=== PATIENT | female | born 1985 | race Caucasian/White ===

== ENCOUNTER 2019-06-14 12:14 | Emergency (ER) | payer BC, SELFPAY ==
[2019-06-14 12:18] VITALS: BP 155/88; PULSE 113; RESP 16; TEMP 37; O2SAT 96; BMI 41.9
--- NOTE | 2019-06-14 12:32 | W.ED.WOUNDLC ---
HPI - Wound/Laceration General: Chief Complaint: Wound/Laceration Stated Complaint: left hand lac Time Seen by Provider: 06/14/19 12:29 Source: patient Mode of arrival: ambulatory Limitations: no limitations History of Present Illness: HPI narrative: Patient was cutting up an avocado when it slipped and she stabbed her left palm of her hand with a knife. Patient has good range of motion of the extremity. Patient does have a puncture wound to the palm of the left hand. Patient's tetanus shot is up-to-date. Patient appears well. Patient appears in mild to moderate pain. Review of Systems General: Reports: 10 or more systems reviewed and unremarkable except in HPI and below Skin/Breast: Reports: other (injury left hand palm) PFSH ED PFSH: Statuses (acute, chronic, etc) shown below reflect problem list status as previously entered and may not be historically accurate Social History Smoking and tobacco status: never smoked Female Reproductive History: Date of last menstrual period: 05/30/19 Physical Exam Const: COMMON NORMALS: no apparent distress and oriented x3 GENERAL APPEARANCE: cooperative HENMT: COMMON NORMALS: normocephalic, external ears normal, EAC's normal, TM's normal bilaterally and external nose normal HEAD & SCALP: normal to inspection and normocephalic FACE & SINUS: normal facial exam NOSE: external nose normal GENERAL EAR: hearing not grossly impaired EXTERNAL EAR: Yes external ears normal EXTERNAL AUDITORY CANAL: EAC's normal TYMPANIC MEMBRANE: TM's normal bilaterally MOUTH: oral and palatal mucosa normal THROAT: posterior oropharynx normal Eye: COMMON NORMALS: PERRL and EOMs intact bilaterally PUPIL: Yes PERRL Neck/C-Spine: COMMON NORMALS: full ROM and no lymphadenopathy Lymph: LYMPHATIC: no lymphedema noted Chest: COMMONS NORMALS: inspection of chest normal and palpation of chest normal Resp: COMMON NORMALS: normal respiratory effort and clear to auscultation bilaterally AUSCULTATION: clear to auscultation bilaterally Cardio: COMMON NORMALS: regular rate and regular rhythm RATE: regular rate RHYTHM: regular rhythm GI: COMMON NORMALS: normal to inspection, nondistended, normoactive bowel sounds and non-tender : COMMON NORMALS: Yes no CVA tenderness BLADDER/KIDNEY EXAM: Yes no CVA tenderness Back/Pelvis: COMMON NORMALS: no CVA tenderness and thoracic and lumbar spine normal to inspection Extremity: NARRATIVE EXTREMITY EXAM: On exam patient's left palm has a half a centimeter wound with surrounding area of ecchymosis. Area is tender to touch. Range of motion is normal. Distal cap refill and sensation is intact. GENERAL: No edema Neuro: COMMON NORMALS: oriented x3, moves all extremities and no focal motor deficits Psych: COMMON NORMALS: mental status grossly normal and cooperative Skin: COMMON NORMALS: no rashes or lesions noted GENERAL SKIN EXAM: no rashes or lesions noted Course Vital Signs: Vital signs: Vital Signs Temperature 98.6 F 06/14/19 12:18 Pulse Rate 113 H 06/14/19 12:18 Respiratory Rate 16 06/14/19 12:18 Blood Pressure 155/88 06/14/19 12:18 Pulse Oximetry 96 06/14/19 12:18 MDM - Wound/Laceration MDM Narrative: Medical decision making narrative: Patient comes in today with injury to the left hand. On exam we noted a superficial laceration/puncture wound to the palmar aspect of the left hand. Patient has normal range of motion. And normal neurovascular checks. Differential diagnosis includes tendon injury, foreign body, laceration, wound infection. Exam noted no foreign body or tendon injury. Reviewed exam with patient with recommendations for treatment for appropriate wound care. No sutures were necessary. Patient will be given antibiotic for prophylaxis and hydrocodone as needed for pain. Encourage Tylenol and ibuprofen otherwise for pain. Discharge Plan Discharge Patient Disposition: Home, Self-Care Clinical Impression: Laceration Condition: Stable Prescriptions: New hydrocodone-acetaminophen 5-325 mg tablet 1 tab PO Q6H PRN (Reason: pain) Qty: 5 RF: 0 cephalexin 500 mg capsule 500 mg PO BID 7 Days Qty: 14 RF: 0 Discharge Orders: Discharge Order (Routine); Ordered 06/14/19 Ordered By: Edgar Huang Referrals: Mark Guy DO [Primary Care Provider] - Discharge Diet: Usual diet Discharge Activity: Increase activity as tolerated Patient Instructions: Puncture Wound (ED) Activity Restrictions/Additional Instructions: Keep wound clean and dry Antibiotics as directed Activity as tolerated Drink plenty of water with medications Follow-up with primary care in one week Return to ER for severe pain, or high fever 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
[2019-06-14] MEDS: HYDROcodone-acetaminophen 5-325 mg Tablet 1 TAB PO (12:44)
--- NOTE | 2019-06-14 12:52 | PC.NURSE ---
pressure dressing with two 2x2 gauze pads and coban
== END 2019-06-14 12:45 | disposition home or self-care (01) ==
LOC: ER 13:04
PROVIDERS: Emergency Provider Nurse Practitioner Family; Family Provider Electrodiagnostic Medicine; PCP Electrodiagnostic Medicine
DX: S61.412A Laceration without foreign body of left hand, initial encounter (principal); W26.0XXA Contact with knife, initial encounter
CPT/HCPCS: 99281; 99283

== ENCOUNTER 2019-08-18 13:27 | Emergency (ER) | payer BC, SELFPAY ==
[2019-08-18 13:46] VITALS: BP 133/85; PULSE 109; RESP 18; TEMP 37.2; O2SAT 97; BMI 42.7
--- NOTE | 2019-08-18 13:50 | W.ED.HA ---
HPI - Headache General: Chief Complaint: Headache Stated Complaint: headache/diabetic Time Seen by Provider: 08/18/19 13:49 History of Present Illness: HPI Narrative: Patient is a 34-year-old female who comes to the ED with a migraine and elevated blood sugars. Patient is of migraines, type II diabetic and she uses insulin to help control her blood sugars. Patient says symptoms started yesterday when she was having elevated blood sugars of over 500. She started feeling nauseous, a migraine and blurry vision. She describes the migraine as retro-orbital with photophobia and nausea. She rates the migraine an 8 out of 10. She has been checking her blood sugars more frequently over the past 24 hours ago and states she has had trouble getting blood sugars down. She normally gets this blurry vision symptom when she is having elevated blood sugars. she currently takes 40 units of Levemir in the morning and at night. She also takes NovoLog on a sliding scale basis. Today she took her 40 units of Levemir and 15 units of NovoLog before coming to the ED. Patient says her blood sugar was over 500 right before she took the 15 units of the NovoLog. Denies any chest pain, shortness of breath, fever, vomiting, diarrhea, abdominal pain, hematuria, dysuria. Associated symptoms: Reports photophobia; Deny chest pain, fever(s), nausea, rash or vomiting Review of Systems Narrative: Elevated and uncontrollable blood sugars. Const: Denies: fever, chills or fatigue Eyes: Denies: change in vision or eye discomfort ENMT: Denies: throat pain, painful swallowing, nasal discharge or nasal congestion Card: Denies: chest pain, palpitations, edema, swelling of feet/ankles, shortness of breath on exertion or shortness of breath when lying down Resp: Denies: shortness of breath, productive cough or non-productive cough GI: Denies: abdominal pain, nausea, vomiting, diarrhea, constipation or blood in stool : Denies: flank pain, painful urination or blood in urine Musc: Denies: neck pain, back pain or extremity swelling Skin/Breast: Denies: rash or new lesion Neuro: Reports: headache; Denies: numbness in extremities or weakness in extremities PFS ED PFSH: Social History Smoking and tobacco status: never smoked Female Reproductive History: Date of last menstrual period: 05/30/19 Physical Exam Const: COMMON NORMALS: oriented x3 and alert HENMT: COMMON NORMALS: normocephalic HEAD & SCALP: normocephalic MOUTH: oral and palatal mucosa normal THROAT: posterior oropharynx normal and uvula midline Eye: COMMON NORMALS: PERRL, EOMs intact bilaterally and normal visual hernandez by confrontation PUPIL: Yes PERRL DIRECT OPHTHALMOSCOPY: Yes photophobia Neck/C-Spine: COMMON NORMALS: supple GENERAL: Yes normal visual inspection Resp: COMMON NORMALS: normal respiratory effort, no retractions, no use of accessory muscles and clear to auscultation bilaterally AUSCULTATION: clear to auscultation bilaterally Cardio: COMMON NORMALS: regular rate, regular rhythm, S1 normal heart sound, S2 normal heart sound, no gallops, no clicks, no murmurs and peripheral pulses 2+ throughout RATE: regular rate RHYTHM: regular rhythm HEART SOUNDS: S1 normal and S2 normal PERIPHERAL PULSES: pulses 2+ throughout GI: COMMON NORMALS: normal to inspection, nondistended, normoactive bowel sounds, soft to palpation, non-tender and no masses PALPATION: Yes soft : COMMON NORMALS: Yes no CVA tenderness BLADDER/KIDNEY EXAM: Yes no CVA tenderness Back/Pelvis: COMMON NORMALS: no CVA tenderness Extremity: COMMON NORMALS: normal to inspection and normal capillary refill Neuro: COMMON NORMALS: oriented x3, CN's II-XII intact bilaterally, moves all extremities, no focal motor deficits and no sensory deficits noted SENSORIUM/ORIENTATION: Yes alert SENSORY EXAM: Yes extremities (intact) MOTOR EXAM: strength 5/5 throughout Skin: COMMON NORMALS: no rashes or lesions noted GENERAL SKIN EXAM: no rashes or lesions noted and dry skin Course Vital Signs: Vital signs: Vital Signs Temperature 99.0 F 08/18/19 13:46 Pulse Rate 97 08/18/19 17:00 Respiratory Rate 16 08/18/19 17:00 Blood Pressure 103/60 08/18/19 17:00 Pulse Oximetry 95 08/18/19 17:00 MDM - Headache MDM Narrative: Medical decision making narrative: Patient is a 34-year-old female who comes to the ED with a migraine and elevated blood sugars. Patient has a past medical history of migraines and type 2 diabetes. Glucose Accu-Check while patient was first in the ED- 424. Physical exam including full neuro exam was normal showing no neurological deficits. Patient had photophobia. While here in the ED patient was given IV fluids, Toradol, Reglan, IV insulin 10 units. Patient's migraine improved greatly and her blood sugar decreased to 286. Patient was discharged and told to have a follow-up appointment with PCP within the next 3 days to discuss changes in diabetes medication regiment. Patient told to continue checking blood sugars at home. Patient understood and agreed with plan. Lab Data: Attestation: I reviewed the patient's lab results. Labs: Lab Results 08/18/19 08/18/19 08/18/19 Range/Units 13:57 14:35 14:45 WBC (4.0-10.0) 10^3/ uL RBC (4.1-5.3) 10^6/u L Hgb (11.5-15.3) g/dL Hct (37.0-47.0) % MCV (81-99) fL MCH (28.0-34.0) pg MCHC (30.0-36.0) g/dL RDW (12.1-15.1) % Plt Count (130-400) 10^3/c mm MPV (7.4-10.4) fL Neut % (Auto) % Lymph % (Auto) % Power % (Auto) % Eos % (Auto) % Baso % (Auto) % Neut # (Auto) (1.8-7.7) 10^3/u L Lymph # (Auto) (0.8-4.8) 10^3/u L Power # (Auto) (0.2-0.9) 10^3/u L Eos # (Auto) (0.0-0.8) 10^3/u L Baso # (Auto) (0.0-0.1) 10^3/u L Nucleated RBC % (a uto) % Nucleated RBCs # /100WBC Specimen Type Arterial Sample Site Radial, left ABG pH 7.41 (7.35-7.45) ABG pCO2 38.2 (35-45) mmHg ABG pO2 75.5 L (80.0-100.0) mmH g ABG HCO3 24.1 (22-26) mmol/L ABG O2 Saturation 96.2 ABG Base Excess -0.3 (-2.0-2.0) mmol/ L Tr Test Pos A-a O2 Gradient 27.0 H (5-10) mmHg Hematocrit 43.2 (37-47) % Hgb O2 Saturation 94.8 L (95-100) % Carboxyhemoglobin 0.6 (0.4-20.1) %THgb Methemoglobin 0.9 (0.4-1.5) % Total Hemoglobin 14.1 (12-16) g/dL Sodium 137.0 (131-143) mmol/L Potassium 4.3 (3.5-5.0) mmol/L Glucose 406.0 H (70-115) mg/dL Ionized Calcium 1.2 (1.1-1.4) mmol/L O2 Delivery Device Room air Solvent Plant Operator ID broma Chloride (98-107) mmol/L Carbon Dioxide (22-29) mmol/L Anion Gap (5-19) BUN (6-20) mg/dL Creatinine (0.5-0.9) mg/dL GFR Calculation (90-130) mL/min POC Glucose 424 (70-110) mg/dL Calculated Osmolal ity (285-295) mOsm/k g Calcium (8.5-10.5) mg/dL Total Bilirubin (0.15-1.2) mg/dL AST (0-32) U/L ALT (0-33) U/L Alkaline Phosphata se (35-105) IU/L Total Protein (6.6-8.7) g/dL Albumin (3.5-5.2) g/dL Globulin (1.3-4.6) g/dL HCG, Qual (Negative) Urine Color Yellow (Yellow) Urine Appearance Clear (CLEAR) Urine pH 5 (5-7) Ur Specific Gravit y 1.010 (1.005-1.030) Urine Protein Neg (Negative) Urine Glucose (UA) 4+ H (Normal) Urine Ketones Negative (Negative) Urine Blood Neg (Negative) Urine Nitrate Negative (Negative) Urine Bilirubin Neg (NEGATIVE) Urine Urobilinogen Norm (Negative) mg/dL Ur Leukocyte Yasmin ase Negative (Negative) Urine RBC None (0-2) /hpf Urine WBC None (0-5) /hpf Ur Squamous Epith Cells 0-4 H (0-5) Urine Bacteria Trace (NONE) 08/18/19 08/18/19 08/18/19 Range/Units 15:00 15:00 15:00 WBC 6.9 (4.0-10.0) 10^3/ uL RBC 4.55 (4.1-5.3) 10^6/u L Hgb 13.4 (11.5-15.3) g/dL Hct 40.4 (37.0-47.0) % MCV 88.8 (81-99) fL MCH 29.5 (28.0-34.0) pg MCHC 33.2 (30.0-36.0) g/dL RDW 12.3 (12.1-15.1) % Plt Count 259 (130-400) 10^3/c mm MPV 9.9 (7.4-10.4) fL Neut % (Auto) 58.9 % Lymph % (Auto) 32.4 % Power % (Auto) 5.4 % Eos % (Auto) 2.2 % Baso % (Auto) 0.7 % Neut # (Auto) 4.1 (1.8-7.7) 10^3/u L Lymph # (Auto) 2.2 (0.8-4.8) 10^3/u L Power # (Auto) 0.4 (0.2-0.9) 10^3/u L Eos # (Auto) 0.2 (0.0-0.8) 10^3/u L Baso # (Auto) 0.1 (0.0-0.1) 10^3/u L Nucleated RBC % (a uto) 0 % Nucleated RBCs # 0.0 /100WBC Specimen Type Sample Site ABG pH (7.35-7.45) ABG pCO2 (35-45) mmHg ABG pO2 (80.0-100.0) mmH g ABG HCO3 (22-26) mmol/L ABG O2 Saturation ABG Base Excess (-2.0-2.0) mmol/ L Tr Test A-a O2 Gradient (5-10) mmHg Hematocrit (37-47) % Hgb O2 Saturation (95-100) % Carboxyhemoglobin (0.4-20.1) %THgb Methemoglobin (0.4-1.5) % Total Hemoglobin (12-16) g/dL Sodium 131 L (131-143) mmol/L Potassium 4.2 (3.5-5.0) mmol/L Glucose 387 H (70-115) mg/dL Ionized Calcium (1.1-1.4) mmol/L O2 Delivery Device Solvent Plant Operator ID Chloride 95 L (98-107) mmol/L Carbon Dioxide 24 (22-29) mmol/L Anion Gap 16.2 (5-19) BUN 15 (6-20) mg/dL Creatinine 0.6 (0.5-0.9) mg/dL GFR Calculation 113.8 (90-130) mL/min POC Glucose (70-110) mg/dL Calculated Osmolal ity 284 L (285-295) mOsm/k g Calcium 9.5 (8.5-10.5) mg/dL Total Bilirubin 0.2 (0.15-1.2) mg/dL AST 14 (0-32) U/L ALT 20 (0-33) U/L Alkaline Phosphata se 48 (35-105) IU/L Total Protein 7.1 (6.6-8.7) g/dL Albumin 3.8 (3.5-5.2) g/dL Globulin 3.3 (1.3-4.6) g/dL HCG, Qual Negative (Negative) Urine Color (Yellow) Urine Appearance (CLEAR) Urine pH (5-7) Ur Specific Gravit y (1.005-1.030) Urine Protein (Negative) Urine Glucose (UA) (Normal) Urine Ketones (Negative) Urine Blood (Negative) Urine Nitrate (Negative) Urine Bilirubin (NEGATIVE) Urine Urobilinogen (Negative) mg/dL Ur Leukocyte Yasmin ase (Negative) Urine RBC (0-2) /hpf Urine WBC (0-5) /hpf Ur Squamous Epith Cells (0-5) Urine Bacteria (NONE) 08/18/19 Range/Units 15:48 WBC (4.0-10.0) 10^3/ uL RBC (4.1-5.3) 10^6/u L Hgb (11.5-15.3) g/dL Hct (37.0-47.0) % MCV (81-99) fL MCH (28.0-34.0) pg MCHC (30.0-36.0) g/dL RDW (12.1-15.1) % Plt Count (130-400) 10^3/c mm MPV (7.4-10.4) fL Neut % (Auto) % Lymph % (Auto) % Power % (Auto) % Eos % (Auto) % Baso % (Auto) % Neut # (Auto) (1.8-7.7) 10^3/u L Lymph # (Auto) (0.8-4.8) 10^3/u L Power # (Auto) (0.2-0.9) 10^3/u L Eos # (Auto) (0.0-0.8) 10^3/u L Baso # (Auto) (0.0-0.1) 10^3/u L Nucleated RBC % (a uto) % Nucleated RBCs # /100WBC Specimen Type Sample Site ABG pH (7.35-7.45) ABG pCO2 (35-45) mmHg ABG pO2 (80.0-100.0) mmH g ABG HCO3 (22-26) mmol/L ABG O2 Saturation ABG Base Excess (-2.0-2.0) mmol/ L Tr Test A-a O2 Gradient (5-10) mmHg Hematocrit (37-47) % Hgb O2 Saturation (95-100) % Carboxyhemoglobin (0.4-20.1) %THgb Methemoglobin (0.4-1.5) % Total Hemoglobin (12-16) g/dL Sodium (131-143) mmol/L Potassium (3.5-5.0) mmol/L Glucose (70-115) mg/dL Ionized Calcium (1.1-1.4) mmol/L O2 Delivery Device Solvent Plant Operator ID Chloride (98-107) mmol/L Carbon Dioxide (22-29) mmol/L Anion Gap (5-19) BUN (6-20) mg/dL Creatinine (0.5-0.9) mg/dL GFR Calculation (90-130) mL/min POC Glucose 286 (70-110) mg/dL Calculated Osmolal ity (285-295) mOsm/k g Calcium (8.5-10.5) mg/dL Total Bilirubin (0.15-1.2) mg/dL AST (0-32) U/L ALT (0-33) U/L Alkaline Phosphata se (35-105) IU/L Total Protein (6.6-8.7) g/dL Albumin (3.5-5.2) g/dL Globulin (1.3-4.6) g/dL HCG, Qual (Negative) Urine Color (Yellow) Urine Appearance (CLEAR) Urine pH (5-7) Ur Specific Gravit y (1.005-1.030) Urine Protein (Negative) Urine Glucose (UA) (Normal) Urine Ketones (Negative) Urine Blood (Negative) Urine Nitrate (Negative) Urine Bilirubin (NEGATIVE) Urine Urobilinogen (Negative) mg/dL Ur Leukocyte Yasmin ase (Negative) Urine RBC (0-2) /hpf Urine WBC (0-5) /hpf Ur Squamous Epith Cells (0-5) Urine Bacteria (NONE) Discharge Plan Discharge Patient Disposition: Home, Self-Care Clinical Impression: Migraine Qualifiers: Migraine type: without aura Status migrainosus presence: without status migrainosus Intractability: not intractable Qualified Code(s): G43.009 - Migraine without aura, not intractable, without status migrainosus Hyperglycemia due to type 2 diabetes mellitus 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 Qualified Code(s): E11.65 - Type 2 diabetes mellitus with hyperglycemia Condition: Stable Prescriptions: No Action hydrocodone-acetaminophen 5-325 mg tablet 1 tab PO Q6H PRN (Reason: pain) Qty: 5 RF: 0 metformin 500 mg Tablet 1,000 mg PO BID RF: 0 atorvastatin 20 mg tablet 20 mg PO BEDTIME RF: 0 Norvasc 5 mg Tablet 5 mg PO DAILY RF: 0 Novolog U-100 Insulin aspart 100 unit/mL solution See Rx Instructions .ROUTE .COMPLEX RF: 0 Levemir U-100 Insulin 100 unit/mL solution 40 unit SUBCUT BID RF: 0 fenofibric acid (choline) 135 mg capsule,delayed release(DR/EC) 135 mg PO DAILY RF: 0 Vascepa 1 gram capsule 1 g PO BID RF: 0 PreNata 29 mg iron- 1 mg Tablet,Chewable 1 tab PO DAILY RF: 0 Discharge Orders: Discharge Order (Routine); Ordered 08/18/19 Ordered By: Joes Spence Referrals: Mark Guy DO [Primary Care Provider] - Discharge Diet: Diabetic Discharge Activity: Resume usual activity Patient Instructions: Migraine Headache (ED), Diabetic Hyperglycemia (ED) Activity Restrictions/Additional Instructions: Follow-up with your PCP in the next 1 to 3 days to discuss diabetes medication management. Continue taking all home medications as previously prescribed. Follow a low carb/low sugar diet. 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
[2019-08-18 14:01] LABS: Glucose Point of Care 424 mg/dL (70-110)
[2019-08-18 14:50] LABS: ABG PCO2 38.2 mmHg (35-45); ABG PH Result 7.41 (7.35-7.45); Arterial Blood Gas Hematocrit 43.2 % (37-47); Base Excess ABG -0.3 mmol/L (-2.0-2.0); Blood Gas Allen Test Pos; Blood Gas Sample Site Radial, left; Blood Gas Sample Type Arterial; Carboxyhemoglobin 0.6 %THgb (0.4-20.1); HCO3 ABG 24.1 mmol/L (22-26); HGB O2 Sat 94.8 % (95-100); Ionized Calcium Level - ABG 1.2 mmol/L (1.1-1.4); Methemoglobin 0.9 % (0.4-1.5); Oxygen Device ROOM AIR; Oxygen Saturation ABG 96.2; PO2 ABG 75.5 mmHg (80.0-100.0); Potassium Level - ABG 4.3 mmol/L (3.5-5.0); Total Hemoglobin 14.1 g/dL (12-16)
[2019-08-18] MEDS: sodium chloride 0.9% 1,000 ML 999 ML IV (15:02)
[2019-08-18] MEDS: ketorolac 30 mg/mL INJ IVP (15:03)
[2019-08-18] MEDS: metoclopramide 5 mg/mL SDV 2 mL 10 MG IVP (15:04)
[2019-08-18 15:05] LABS: Basophils # 0.1 10^3/uL (0.0-0.1); Basophils % 0.7 %; Eosinophils # 0.2 10^3/uL (0.0-0.8); Eosinophils % 2.2 %; Hematocrit 40.4 % (37.0-47.0); Hemoglobin 13.4 g/dL (11.5-15.3); Lymphocytes # 2.2 10^3/uL (0.8-4.8); Lymphocytes % 32.4 %; Mean Corpuscular HGB Conc 33.2 g/dL (30.0-36.0); Mean Corpuscular Hemoglobin 29.5 pg (28.0-34.0); Mean Corpuscular Volume 88.8 fL (81-99); Mean Platelet Volume 9.9 fL (7.4-10.4); Monocytes # 0.4 10^3/uL (0.2-0.9); Monocytes % 5.4 %; Neutrophils # 4.1 10^3/uL (1.8-7.7); Neutrophils % 58.9 %; Nucleated Red Blood Cells % 0 %; Platelet Count 259 10^3/cmm (130-400); Red Blood Count 4.55 10^6/uL (4.1-5.3); Red Cell Distribution Width 12.3 % (12.1-15.1); White Blood Count 6.9 10^3/uL (4.0-10.0)
[2019-08-18] MEDS: insulin regular-human 100 units/1 mL 10 UNIT IVP (15:09)
[2019-08-18 15:11] VITALS: BP 108/70; PULSE 99; RESP 16; O2SAT 96
[2019-08-18 15:23] LABS: Alanine Aminotransferase 20 U/L (0-33); Albumin Level 3.8 g/dL (3.5-5.2); Alkaline Phosphatase 48 IU/L (35-105); Anion Gap 16.2 (5-19); Aspartate Amino Transferase 14 U/L (0-32); Blood Urea Nitrogen 15 mg/dL (6-20); Calcium 9.5 mg/dL (8.5-10.5); Carbon Dioxide 24 mmol/L (22-29); Chloride 95 mmol/L (98-107); Globulin 3.3 g/dL (1.3-4.6); Glomerular Filtration Rate 113.8 mL/min (90-130); Glucose 387 mg/dL (65-115); Osmolality Calculated 284 mOsm/kg (285-295); Potassium 4.2 mmol/L (3.5-5.1); Sodium 131 mmol/L (136-145); Total Bilirubin 0.2 mg/dL (0.15-1.2); Total Protein 7.1 g/dL (6.6-8.7)
[2019-08-18 16:02] LABS: Urine Appearance Clear (CLEAR); Urine Color Yellow (Yellow); pH Urine 5 (5-7)
[2019-08-18 16:03] LABS: Add Urine Culture? No; Bacteria Urine TRACE; Bilirubin Urine Neg (NEGATIVE); Blood Urine Neg (Negative); Glucose Urine UA 4+ (Normal); Ketones Urine Negative (Negative); Leukocyte Esterase Urine Negative (Negative); Nitrate Urine Negative (Negative); Protein Urine Neg (Negative); Squamous Epithelial Cell Urine 0-4 (0-5); Urobilinogen Urine Norm (Negative)
[2019-08-18 16:03] LABS: Glucose Point of Care 286 mg/dL (70-110)
[2019-08-18 16:18] LABS: HCG, Serum Qual Negative (Negative)
[2019-08-18 17:00] VITALS: BP 103/60; PULSE 97; RESP 16; O2SAT 95
== END 2019-08-18 17:28 | disposition home or self-care (01) ==
PROVIDERS: Emergency Provider Physician Assistant; Family Provider Electrodiagnostic Medicine; PCP Electrodiagnostic Medicine
DX: G43.009 Migraine without aura, not intractable, without status migrainosus (principal); E11.65 Type 2 diabetes mellitus with hyperglycemia; Z79.4 Long term (current) use of insulin; Z79.84 Long term (current) use of oral hypoglycemic drugs
CPT/HCPCS: 12345; 36415; 36416; 36600; 80051; 80053; 81001; 82810; 82962; 83986; 84703; 85025; 96361; 96374; 96375; 99283; J1815; J1885; J2765; J7030

== ENCOUNTER → 2020-03-27 11:30 | Outpatient (BNVA) | payer OTHER, SELFPAY | PROVIDERS: Family Provider Electrodiagnostic Medicine; PCP Electrodiagnostic Medicine; Visit Provider Nurse Practitioner | DX: J02.0 Streptococcal pharyngitis (principal) | CPT/HCPCS: 87880 ==

== ENCOUNTER 2020-05-09 21:50 | Emergency (ER) | payer OTHER, SELFPAY ==
[2020-05-09 21:51] VITALS: BMI 37.1
[2020-05-09 21:56] VITALS: BP 155/102; PULSE 91; RESP 16; O2SAT 99
--- NOTE | 2020-05-09 21:57 | XRR_ITS ---
PROCEDURE INFORMATION: Exam: XR Chest, 1 View Exam date and time: 05/09/2020 9:59 PM Age: 35 years old Clinical indication: Shortness of breath; Chest pain; Type not specified; Patient HX: Dizzy, SOB, cp, high bg TECHNIQUE: Imaging protocol: XR of the chest Views: 1 view. COMPARISON: CR Chest 1 [place] [id number] 04/03/2019 11:01 PM FINDINGS: Lungs: No acute airspace disease. Pleural space: No pleural effusion. Heart/Mediastinum: Borderline cardiomegaly and epicardial fat. Bones/joints: Unremarkable. XR/XR chest 1V portable [id number] IMPRESSION: No acute airspace or pleural disease.
--- NOTE | 2020-05-09 21:58 | ECG_ITS ---
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1985 Requested By: Marisol Benton Order Number: [id number] Sommer MD: CHUN TOWNSEND Measurements Intervals [place] Rate: 96 P: 24 FL: 142 QRS: -28 QRSD: 97 T: 15 QT: 383 QTc: 484 Interpretive Statements SINUS RHYTHM INCOMPLETE RIGHT BUNDLE BRANCH BLOCK [90+ ms QRS DURATION, TERMINAL R IN V1/V2, 40+ ms S IN I/aVL/V4/V5/V6] MODERATE VOLTAGE CRITERIA FOR LVH, CONSIDER NORMAL VARIANT [MEETS CRITERIA IN ONE OF: R(aVL), S(V1), R(V5), R(V5/V6)+S(V1)] POSSIBLE ANTERIOR MYOCARDIAL INFARCTION , OF INDETERMINATE AGE [30 ms Q WAVE IN V3/V4, OR R < 0.2 mV IN V4] Compared to ECG 05/29/2018 06:56:04 Incomplete right bundle-branch block now present Myocardial infarct finding now present Electronically Signed On 05-10-2020 19:58:57 SENIOR ESTIMATOR by CHUN TOWNSEND [email or web address]
--- NOTE | 2020-05-09 21:59 | W.ED.GENADLT ---
HPI - General Adult General: Chief complaint: General Medical Stated complaint: MENTAL STATUS CHANGES / HIGH BG Time Seen by Provider: 05/09/20 21:52 Source: patient and EMS Mode of arrival: EMS Limitations: no limitations History of Present Illness: HPI narrative: 35-year-old female who states she is acting with her significant other and started having sudden onset of shortness of breath and chest pain. States she is feeling quite anxious. She does have a history of diabetes and blood sugar was in the 500s. Patient states she is feeling improved but still feels short of breath and has palpitations. She denies any worsening improving factors. Associated symptoms: Reports chest pain, dyspnea and palpitations; Deny headache(s), nausea, rash or vomiting Review of Systems Const: Denies: fever(s), chills, body aches or change in appetite Eyes: Denies: blurry vision or eye discomfort ENMT: Denies: throat pain or dental pain Card: Reports: chest pain and palpitations Resp: Reports: dyspnea GI: Denies: abdominal pain, nausea, vomiting or diarrhea : Denies: dysuria Musc: Denies: neck pain or back pain Skin/Breast: Denies: rash Neuro: Denies: headache(s) Psych: Reports: anxiety Marcin/Lymph: Denies: easy bruising All/Imm: Denies: urticaria PFSH ED PFSH: Medical History (Updated 05/10/20 @ 00:18 by Marisol Benton MD) Diabetes type 2 Hypertriglyceridemia No pertinent past medical history neghx: htn,thyroid,dvt/pe PCOS (polycystic ovarian syndrome) Surgical History (Updated 04/19/20 @ 09:52 by Nadira Chan APN, CARIE) History of hip surgery (~1996) Pinned due to growth plate slipped History of laparotomy (~06/2001) removal of ovarian cyst and left fallopian tube due to damage - Andrew Family History Grandmother Diabetes Paternal Ovarian cancer Paternal-- dx age 60's Grandfather Diabetes Paternal Mother Hypercholesteremia Denies family history of Colon cancer Heart disease Breast cancer Hypertension Uterine cancer Thyroid disease Stroke Social History Additional social history: - Tobacco use: Never Alcohol use: occasional Drug use: denies Female Reproductive History: Date of last menstrual period: 04/25/20 Physical Exam Const: COMMON NORMALS: patient oriented x3 and healthy appearing GENERAL APPEARANCE: anxious HENMT: COMMON NORMALS: normocephalic and atraumatic HEAD & SCALP: normocephalic and atraumatic Eye: COMMON NORMALS: Equal, round and reactive pupils present and EOMs intact bilaterally PUPIL: Yes Equal, round and reactive pupils present Neck/C-Spine: COMMON NORMALS: full ROM and supple Chest: COMMONS NORMALS: normal inspection of the chest and normal palpation of entire chest wall Resp: COMMON NORMALS: normal respiratory effort, No retractions, No use of accessory muscles and clear to auscultation bilaterally AUSCULTATION: clear to auscultation bilaterally Cardio: COMMON NORMALS: regular rhythm and No murmurs present (Cardio) RATE: tachycardic RHYTHM: regular rhythm GI: COMMON NORMALS: Normal to inspection, nondistended, normoactive bowel sounds present, Soft to palpation, non-tender and no masses PALPATION: Yes Soft to palpation Extremity: COMMON NORMALS: normal to inspection and full ROM Neuro: COMMON NORMALS: patient oriented x3, moves all extremities and no focal motor deficits Psych: COMMON NORMALS: mental status grossly normal, Normal thought process present and cooperative MOOD & AFFECT: Yes anxious THOUGHT PROCESS: Normal thought process present Skin: COMMON NORMALS: no rashes or lesions noted and no wounds GENERAL SKIN EXAM: no rashes or lesions noted Course Vital Signs: Vital signs: Vital Signs Pulse Rate 90 05/10/20 00:00 Respiratory Rate 21 H 05/10/20 00:00 Blood Pressure 123/101 05/10/20 00:00 Pulse Oximetry 94 05/10/20 00:00 MDM - General Adult MDM Narrative: Medical decision making narrative: Marcelina presents here with an anxiety attack after fighting with her . Patient feels much improved here after Ativan. Her EKG and x-ray are normal. She has no signs of cardiac cause for this. She was hyperglycemic and repeat BMP is improved. Patient is stable for discharge is to follow-up with PCP and return if worsening. She understands and agrees to plan. Lab Data: Labs: Lab Results 01/04/21 01/04/21 01/04/21 Range/Units 21:53 21:53 21:53 WBC 6.4 (4.0-10.0) 10^3/ uL RBC 5.08 (4.1-5.3) 10^6/u L Hgb 16.0 H (11.5-15.3) g/dL Hct 46.1 (37.0-47.0) % MCV 90.7 (81-99) fL MCH 31.5 (28.0-34.0) pg MCHC 34.7 (30.0-36.0) g/dL RDW 11.8 L (12.1-15.1) % Plt Count 294 (130-400) 10^3/c mm MPV 11.4 H (7.4-10.4) fL Neut % (Auto) 60.3 % Lymph % (Auto) 29.1 % [place] % (Auto) 7.4 % Eos % (Auto) 1.9 % Baso % (Auto) 0.8 % Neut # (Auto) 3.83 (1.8-7.7) 10^3/u L Lymph # (Auto) 1.9 (0.8-4.8) 10^3/u L [place] # (Auto) 0.5 (0.2-0.9) 10^3/u L Eos # (Auto) 0.1 (0.0-0.8) 10^3/u L Baso # (Auto) 0.1 (0.0-0.1) 10^3/u L Nucleated RBC % (a uto) 0 % Nucleated RBCs # 0.0 /100WBC Specimen Type Sample Site ABG pH (7.35-7.45) ABG pCO2 (35-45) mmHg ABG pO2 (80.0-100.0) mmH g ABG HCO3 (22-26) mmol/L ABG Base Excess (-2.0-2.0) mmol/ L Tr Test Hematocrit (37-47) % O2 Delivery Device FiO2 % Barrel Tester And Drainer ID Sodium 128 L (136-145) mmol/L Potassium 4.9 (3.5-5.1) mmol/L Chloride 90 L (98-107) mmol/L Carbon Dioxide 21 L (22-29) mmol/L Anion Gap 21.9 H (5-19) BUN 10 (6-20) mg/dL Creatinine 0.4 L (0.5-0.9) mg/dL GFR Calculation 180.6 H (90-130) mL/min Glucose 526 H* (65-115) mg/dL POC Glucose (70-110) mg/dL Calculated Osmolal ity 289 (285-295) mOsm/k g Calcium 10.0 (8.5-10.5) mg/dL Total Bilirubin 0.2 (0.15-1.2) mg/dL AST 5 (0-32) U/L ALT < 5 (0-33) U/L Alkaline Phosphata se 78 (35-105) IU/L Total Protein 8.1 (6.6-8.7) g/dL Albumin 3.7 (3.5-5.2) g/dL Globulin 4.4 (1.3-4.6) g/dL Ethyl Alcohol < 10 (0-10) mg/dL Serum Ketones Positive H (Negative) 05/09/20 05/09/20 05/09/20 Range/Units 21:54 22:05 23:21 WBC (4.0-10.0) 10^3/ uL RBC (4.1-5.3) 10^6/u L Hgb (11.5-15.3) g/dL Hct (37.0-47.0) % MCV (81-99) fL MCH (28.0-34.0) pg MCHC (30.0-36.0) g/dL RDW (12.1-15.1) % Plt Count (130-400) 10^3/c mm MPV (7.4-10.4) fL Neut % (Auto) % Lymph % (Auto) % [place] % (Auto) % Eos % (Auto) % Baso % (Auto) % Neut # (Auto) (1.8-7.7) 10^3/u L Lymph # (Auto) (0.8-4.8) 10^3/u L [place] # (Auto) (0.2-0.9) 10^3/u L Eos # (Auto) (0.0-0.8) 10^3/u L Baso # (Auto) (0.0-0.1) 10^3/u L Nucleated RBC % (a uto) % Nucleated RBCs # /100WBC Specimen Type Arterial Sample Site Radial, right ABG pH 7.39 (7.35-7.45) ABG pCO2 32.4 L (35-45) mmHg ABG pO2 64.1 L (80.0-100.0) mmH g ABG HCO3 19.6 L (22-26) mmol/L ABG Base Excess -4.4 L (-2.0-2.0) mmol/ L Tr Test Pos Hematocrit 43.9 (37-47) % O2 Delivery Device Room air FiO2 21.0 % Barrel Tester And Drainer ID Jlg Sodium (136-145) mmol/L Potassium (3.5-5.1) mmol/L Chloride (98-107) mmol/L Carbon Dioxide (22-29) mmol/L Anion Gap (5-19) BUN (6-20) mg/dL Creatinine (0.5-0.9) mg/dL GFR Calculation (90-130) mL/min Glucose (65-115) mg/dL POC Glucose 468 H 310 H (70-110) mg/dL Calculated Osmolal ity (285-295) mOsm/k g Calcium (8.5-10.5) mg/dL Total Bilirubin (0.15-1.2) mg/dL AST (0-32) U/L ALT (0-33) U/L Alkaline Phosphata se (35-105) IU/L Total Protein (6.6-8.7) g/dL Albumin (3.5-5.2) g/dL Globulin (1.3-4.6) g/dL Ethyl Alcohol (0-10) mg/dL Serum Ketones (Negative) 05/09/20 Range/Units 23:49 WBC (4.0-10.0) 10^3/ uL RBC (4.1-5.3) 10^6/u L Hgb (11.5-15.3) g/dL Hct (37.0-47.0) % MCV (81-99) fL MCH (28.0-34.0) pg MCHC (30.0-36.0) g/dL RDW (12.1-15.1) % Plt Count (130-400) 10^3/c mm MPV (7.4-10.4) fL Neut % (Auto) % Lymph % (Auto) % [place] % (Auto) % Eos % (Auto) % Baso % (Auto) % Neut # (Auto) (1.8-7.7) 10^3/u L Lymph # (Auto) (0.8-4.8) 10^3/u L [place] # (Auto) (0.2-0.9) 10^3/u L Eos # (Auto) (0.0-0.8) 10^3/u L Baso # (Auto) (0.0-0.1) 10^3/u L Nucleated RBC % (a uto) % Nucleated RBCs # /100WBC Specimen Type Sample Site ABG pH (7.35-7.45) ABG pCO2 (35-45) mmHg ABG pO2 (80.0-100.0) mmH g ABG HCO3 (22-26) mmol/L ABG Base Excess (-2.0-2.0) mmol/ L Tr Test Hematocrit (37-47) % O2 Delivery Device FiO2 % Barrel Tester And Drainer ID Sodium 134 L (136-145) mmol/L Potassium 3.7 (3.5-5.1) mmol/L Chloride 101 (98-107) mmol/L Carbon Dioxide 20 L (22-29) mmol/L Anion Gap 16.7 (5-19) BUN 10 (6-20) mg/dL Creatinine 0.4 L (0.5-0.9) mg/dL GFR Calculation 180.6 H (90-130) mL/min Glucose 332 H (65-115) mg/dL POC Glucose (70-110) mg/dL Calculated Osmolal ity 290 (285-295) mOsm/k g Calcium 8.6 (8.5-10.5) mg/dL Total Bilirubin (0.15-1.2) mg/dL AST (0-32) U/L ALT (0-33) U/L Alkaline Phosphata se (35-105) IU/L Total Protein (6.6-8.7) g/dL Albumin (3.5-5.2) g/dL Globulin (1.3-4.6) g/dL Ethyl Alcohol (0-10) mg/dL Serum Ketones (Negative) Imaging Data^: CXR: Attestation: I personally reviewed and interpreted this imaging study as follows: My impression: no acute abnormality EKG Data^: EKG 1: Attestation: I personally reviewed and interpreted this EKG as follows: EKG interpretation date: 05/09/20 EKG interpretation time: 21:57 Interpretation: nsr hr [address] or t wave abnormalities qrs 97 qtc 436 Discharge Plan Discharge Patient Disposition: Home Clinical Impression: Anxiety, Hyperglycemia Condition: Stable Prescriptions: No Action citalopram [Celexa] 40 mg tablet 40 mg PO DAILY RF: 0 Trulicity 1.5 mg/0.5 mL pen injector SUBCUT .weekly RF: 0 metformin 500 mg Tablet 1,000 mg PO BID RF: 0 atorvastatin 20 mg tablet 20 mg PO BEDTIME RF: 0 Levemir U-100 Insulin 100 unit/mL solution 40 unit SUBCUT BID RF: 0 fenofibric acid (choline) 135 mg capsule,delayed release(DR/EC) 135 mg PO DAILY RF: 0 PreNata 29 mg iron- 1 mg Tablet,Chewable 1 tab PO DAILY RF: 0 Discharge Orders: Discharge ED (Routine); Ordered 05/10/20 Ordered By: Marsiol Benton Referrals: Mark Guy DO [Primary Care Provider] - Discharge Diet: Advance as tolerated Discharge Activity: Resume usual activity Patient Instructions: Anxiety (ED), Diabetic Hyperglycemia (ED) Coding Level of Care Code ED Foam Rubber Molder for Chg Fwd Exam Comprehensive
[2020-05-09 22:03] LABS: Glucose Point of Care 468 mg/dL (70-110)
[2020-05-09 22:13] LABS: Basophils # 0.1 10^3/uL (0.0-0.1); Basophils % 0.8 %; Eosinophils # 0.1 10^3/uL (0.0-0.8); Eosinophils % 1.9 %; Hematocrit 46.1 % (37.0-47.0); Lymphocytes # 1.9 10^3/uL (0.8-4.8); Lymphocytes % 29.1 %; Mean Corpuscular HGB Conc 34.7 g/dL (30.0-36.0); Mean Corpuscular Hemoglobin 31.5 pg (28.0-34.0); Mean Corpuscular Volume 90.7 fL (81-99); Mean Platelet Volume 11.4 fL (7.4-10.4); Monocytes # 0.5 10^3/uL (0.2-0.9); Monocytes % 7.4 %; Neutrophils # 3.83 10^3/uL (1.8-7.7); Neutrophils % 60.3 %; Nucleated Red Blood Cells % 0 %; Platelet Count 294 10^3/cmm (130-400); Red Blood Count 5.08 10^6/uL (4.1-5.3); Red Cell Distribution Width 11.8 % (12.1-15.1); White Blood Count 6.4 10^3/uL (4.0-10.0)
[2020-05-09 22:17] LABS: ABG PCO2 32.4 mmHg (35-45); ABG PH Result 7.39 (7.35-7.45); Arterial Blood Gas Hematocrit 43.9 % (37-47); Base Excess ABG -4.4 mmol/L (-2.0-2.0); Blood Gas Allen Test Pos; Blood Gas Sample Site Radial, right; Blood Gas Sample Type Arterial; HCO3 ABG 19.6 mmol/L (22-26); Oxygen Device ROOM AIR; PO2 ABG 64.1 mmHg (80.0-100.0)
[2020-05-09] MEDS: LORazepam 2 mg/mL INJ 1 mL 1 MG IVP (22:18)
[2020-05-09 22:19] LABS: Ketone (Acetest) Serum Positive (Negative)
[2020-05-09] MEDS: sodium chloride 0.9% 1,000 ML 999 ML IV ×2 (22:25→23:38)
[2020-05-09 22:26] LABS: Albumin Level 3.7 g/dL (3.5-5.2); Alkaline Phosphatase 78 IU/L (35-105); Blood Urea Nitrogen 10 mg/dL (6-20); Carbon Dioxide 21 mmol/L (22-29); Chloride 90 mmol/L (98-107); Globulin 4.4 g/dL (1.3-4.6); Glomerular Filtration Rate 180.6 mL/min (90-130); Osmolality Calculated 289 mOsm/kg (285-295); Sodium 128 mmol/L (136-145); Total Bilirubin 0.2 mg/dL (0.15-1.2); Total Protein 8.1 g/dL (6.6-8.7)
[2020-05-09 22:30] LABS: Alcohol Level < 10 mg/dL (0-10); Anion Gap 21.9 (5-19); Glucose 526 mg/dL (65-115); Potassium 4.9 mmol/L (3.5-5.1)
[2020-05-09] MEDS: insulin regular-human 100 units/1 mL 10 UNIT IVP (22:36)
[2020-05-09 22:40] LABS: Alanine Aminotransferase < 5 U/L (0-33); Aspartate Amino Transferase 5 U/L (0-32)
[2020-05-09 22:56] VITALS: BP 141/85; PULSE 85; RESP 21; O2SAT 98
[2020-05-09 23:00] VITALS: BP 141/85; PULSE 84; RESP 21; O2SAT 98
[2020-05-09 23:26] LABS: Glucose Point of Care 310 mg/dL (70-110)
[2020-05-10] VITALS: BP 123/101; PULSE 90; RESP 21; O2SAT 94
[2020-05-10 00:11] LABS: Blood Urea Nitrogen 10 mg/dL (6-20); Calcium 8.6 mg/dL (8.5-10.5); Carbon Dioxide 20 mmol/L (22-29); Chloride 101 mmol/L (98-107); Glomerular Filtration Rate 180.6 mL/min (90-130); Glucose 332 mg/dL (65-115); Osmolality Calculated 290 mOsm/kg (285-295); Sodium 134 mmol/L (136-145)
[2020-05-10 00:15] LABS: Anion Gap 16.7 (5-19); Potassium 3.7 mmol/L (3.5-5.1)
[2020-05-10 00:47] VITALS: BP 112/80; PULSE 89; RESP 22; TEMP 36.7; O2SAT 96
== END 2020-05-10 00:47 | disposition home or self-care (01) ==
PROVIDERS: Emergency Provider Emergency Medicine; PCP Electrodiagnostic Medicine
DX: F41.9 Anxiety disorder, unspecified (principal); E11.65 Type 2 diabetes mellitus with hyperglycemia; Z79.4 Long term (current) use of insulin
CPT/HCPCS: 12345; 36416; 36600; 71045; 80048; 80053; 80307; 82009; 82803; 82962; 85025; 93005; 96361; 96374; 96375; 99283; 99284; J1815; J2060; J7030

== ENCOUNTER 2020-05-10 15:00 | Inpatient (IN) | payer OTHER, SELFPAY ==
[2020-05-10 15:08] VITALS: BP 202/142; PULSE 119; RESP 20; TEMP 36.3; O2SAT 96; BMI 37.1
--- NOTE | 2020-05-10 15:43 | ED_ITS ---
Documented by User: GEORGIANA Lees 05/10/20 17:21 HPI - Psych General: Chief Complaint: Psychiatric Symptoms Stated Complaint: St,SI MHE Time Seen by Provider: 05/10/20 15:41 Source: patient and other (friend) Mode of arrival: ambulatory Limitations: no limitations History of Present Illness: HPI Narrative: 35-year-old female patient presents to the emergency department via private auto, she presents with her friend. She is brought to the emergency department due to suicidal thoughts and increased depression symptoms/anxiety since a break-up from her spouse in January. She has battled depression and anxiety since break-up. She reports she helped raise her stepchild and custody was granted to the father. She sent a picture of a gun and alcohol in the floor to her friend and stated she did not care what happens -her friend immediately went to the home and picked her up. Her friend reports there were 2 guns in the home. She was able to talk Marcelina into coming to the ED today for psychiatric evaluation. Marcelina reports she has experienced increased episodes of cutting her arms and legs, thoughts of self-harm on several occasions, she does not have history of suicidal thoughts plans, denies hallucinations, she reports daily use of THC along with EtOH use this morning, tequila. complaint: suicidal ideation and feels depressed Onset (ago): month(s) (2-3) Duration: intermittent and getting worse History of same: No Context: significant life stressor Associated psychiatric symptoms: depression and suicidal ideation Associated symptoms: Reports depression and suicidal ideation Treatments prior to arrival: none If self harm: admits thoughts of self harm and has plan Details of plan: picture of gun and alcohol bottle sent to her friend Review of Systems General: Reports: 10 or more systems reviewed and unremarkable except in HPI and below Const: Denies: fever(s), chills or diaphoresis Eyes: Denies: blurry vision or eye redness ENMT: Denies: throat pain, dental pain or disequilibrium Card: Denies: chest pain, palpitations or irregular heart rhythm Resp: Denies: dyspnea, productive cough, non-productive cough or wheezing GI: Denies: abdominal pain, nausea or vomiting : Denies: difficulty voiding or dysuria Musc: Denies: neck pain, back pain, joint pain or muscle weakness Skin/Breast: Denies: rash or pruritus Neuro: Denies: headache(s), weakness in extremities or behavioral changes Psych: Reports: anxiety, depression, panic attacks, hopelessness, difficulty concentrating and suicidal ideation; Denies: mood swings Marcin/Lymph: Denies: easy bruising PFSH ED PFSH: Medical History Diabetes type 2 Hypertriglyceridemia No pertinent past medical history neghx: htn,thyroid,dvt/pe PCOS (polycystic ovarian syndrome) Surgical History History of hip surgery (~1996) Pinned due to growth plate slipped History of laparotomy (~06/2001) removal of ovarian cyst and left fallopian tube due to damage - [facility] Family History Grandmother Diabetes Paternal Ovarian cancer Paternal-- dx age 60's Grandfather Diabetes Paternal Mother Hypercholesteremia Denies family history of Colon cancer Heart disease Breast cancer Hypertension Uterine cancer Thyroid disease Stroke Social History Additional social history: - Tobacco use: Never Alcohol use: occasional Drug use: denies Female Reproductive History: Date of last menstrual period: 04/25/20 Physical Exam Const: COMMON NORMALS: no acute distress, patient oriented x3, healthy appearing, alert and well nourished GENERAL APPEARANCE: cooperative, comfortable, well kempt, well developed and well hydrated; not in distress, not anxious and not ill appearing NUTRITIONAL APPEARANCE: obese ORIENTATION/CONSCIOUSNESS: Yes awake, Yes oriented to person, Yes oriented to place and Yes oriented to time HENMT: COMMON NORMALS: normocephalic, atraumatic, external ears normal, Normal external nose present and moist oral mucous membranes HEAD & SCALP: normal to inspection, normocephalic and atraumatic FACE & SINUS: normal facial exam and face symmetric NOSE: Normal external nose present EXTERNAL EAR: Yes external ears normal THROAT: posterior oropharynx normal and uvula midline Eye: COMMON NORMALS: Equal, round and reactive pupils present and EOMs intact bilaterally GENERAL EYE: appearance normal, both eyes and all related structures PUPIL: Yes Equal, round and reactive pupils present Neck/C-Spine: COMMON NORMALS: full ROM and no lymphadenopathy GENERAL: Yes normal visual inspection and Yes trachea midline CERVICAL SPINE: Yes cervical ROM normal Lymph: LYMPHATIC: no lymphadenopathy noted Chest: COMMONS NORMALS: normal inspection of the chest and normal palpation of entire chest wall Resp: COMMON NORMALS: normal respiratory effort, No retractions, No use of accessory muscles and clear to auscultation bilaterally EFFORT & INSPECTION: Yes able to speak in complete sentences AUSCULTATION: clear to auscultation bilaterally Cardio: COMMON NORMALS: regular rate, regular rhythm, S1 normal heart sound present, S2 normal heart sound present and Peripheral pulses 2+ throughout RATE: regular rate RHYTHM: regular rhythm HEART SOUNDS: S1 normal heart sound present and S2 normal heart sound present PERIPHERAL PULSES: Peripheral pulses 2+ throughout GI: COMMON NORMALS: Normal to inspection, nondistended, normoactive bowel sounds present, Soft to palpation and non-tender INSPECTION: Yes normal to inspection PALPATION: Yes Soft to palpation : COMMON NORMALS: Yes no CVA tenderness BLADDER/KIDNEY EXAM: Yes no CVA tenderness Back/Pelvis: COMMON NORMALS: no CVA tenderness and thoracic and lumbar spine normal to inspection Extremity: COMMON NORMALS: normal to inspection and capillary refill normal Neuro: BASILIA COMA SCALE: document GCS findings [place] coma scale eye opening: Spontaneous [place] coma scale verbal response: Orientated [place] coma scale motor response: Obey commands [place] coma scale total score: 15 COMMON NORMALS: patient oriented x3 and no focal motor deficits SENSORIUM/ORIENTATION: Yes alert, Yes oriented to person, Yes oriented to place and Yes oriented to time SPEECH: speech normal GAIT: Yes Normal gait present MOTOR EXAM: 5/5 motor strength present throughout Psych: COMMON NORMALS: mental status grossly normal, Normal thought process present, cooperative and speech normal APPEARANCE: Yes grossly normal and Yes well kempt ATTITUDE: Yes calm and Yes Withdrawn affect present ACTIVITY/MOTOR BEHAVIOR: Yes appropriate eye contact SPEECH: Yes normal speech MOOD & AFFECT: Yes depressed mood, Yes sad and Yes tearful THOUGHT PROCESS: Normal thought process present THOUGHT CONTENT: Yes Normal thought content present ATTENTION/CONCENTRATION: Yes attention grossly intact MEMORY/COGNITION: Yes memory grossly intact INSIGHT: Fair insight present (Psych) JUDGEMENT: Fair judgement present (Psych) Skin: COMMON NORMALS: no rashes or lesions noted and turgor normal GENERAL SKIN EXAM: no rashes or lesions noted, turgor normal and scars (left wrist and distal FA) MDM - Psych Lab Data: Labs: Lab Results 05/10/20 05/10/20 05/10/20 Range/Units 15:50 15:50 15:50 WBC (4.0-10.0) 10^3/ uL RBC (4.1-5.3) 10^6/u L Hgb (11.5-15.3) g/dL Hct (37.0-47.0) % MCV (81-99) fL MCH (28.0-34.0) pg MCHC (30.0-36.0) g/dL RDW (12.1-15.1) % Plt Count (130-400) 10^3/c mm MPV (7.4-10.4) fL Neut % (Auto) % Lymph % (Auto) % Griggs % (Auto) % Eos % (Auto) % Baso % (Auto) % Neut # (Auto) (1.8-7.7) 10^3/u L Lymph # (Auto) (0.8-4.8) 10^3/u L Griggs # (Auto) (0.2-0.9) 10^3/u L Eos # (Auto) (0.0-0.8) 10^3/u L Baso # (Auto) (0.0-0.1) 10^3/u L Nucleated RBC % (a uto) % Nucleated RBCs # /100WBC Sodium (136-145) mmol/L Potassium (3.5-5.1) mmol/L Chloride (98-107) mmol/L Carbon Dioxide (22-29) mmol/L Anion Gap (5-19) BUN (6-20) mg/dL Creatinine (0.5-0.9) mg/dL GFR Calculation (90-130) mL/min Glucose (65-115) mg/dL Calculated Osmolal ity (285-295) mOsm/k g Calcium (8.5-10.5) mg/dL Total Bilirubin (0.15-1.2) mg/dL AST (0-32) U/L ALT (0-33) U/L Alkaline Phosphata se (35-105) IU/L Total Protein (6.6-8.7) g/dL Albumin (3.5-5.2) g/dL Globulin (1.3-4.6) g/dL Urine Color Straw (Yellow) Urine Appearance Sl hazy (CLEAR) Urine pH 5.0 (5-7) Ur Specific Gravit y 1.010 (1.005-1.030) Urine Protein Trace (Negative) Urine Glucose (UA) 4+ H (Normal) Urine Ketones 1+ H (Negative) Urine Blood 2+ H (Negative) Urine Nitrate Negative (Negative) Urine Bilirubin Neg (Negative) Urine Urobilinogen Norm (Negative) mg/dL Ur Leukocyte Yasmin ase Negative (Negative) Urine RBC 0-4 H (0-2) /hpf Urine WBC None (0-5) /hpf Ur Squamous Epith Cells 40-55 H (0-5) /hpf Amorphous Sediment Not Reportable Urine Bacteria 1+ H (NONE) /hpf Urine Mucus Trace /hpf Urine HCG, Qual Negative (Negative) Salicylates (3-10) mg/dL Urine Opiates Scre en Negative (Negative) ng/mL Acetaminophen (10-30) ug/mL Ur Barbiturates Sc reen Negative (Negative) ng/mL Ur Phencyclidine S crn Negative (Negative) ng/mL Ur Amphetamines Sc reen Negative (Negative) ng/mL U Benzodiazepines Scrn Negative (Negative) ng/mL Urine Cocaine Scre en Negative (Negative) ng/mL U Marijuana (THC) Screen Positive H (Negative) ng/mL Ethyl Alcohol (0-10) mg/dL 05/10/20 05/10/20 Range/Units 15:55 15:55 WBC 5.9 (4.0-10.0) 10^3/ uL RBC 4.74 (4.1-5.3) 10^6/u L Hgb 14.2 (11.5-15.3) g/dL Hct 43.2 (37.0-47.0) % MCV 91.1 (81-99) fL MCH 30.0 (28.0-34.0) pg MCHC 32.9 D (30.0-36.0) g/dL RDW 11.8 L (12.1-15.1) % Plt Count 272 (130-400) 10^3/c mm MPV 9.3 (7.4-10.4) fL Neut % (Auto) 58.7 % Lymph % (Auto) 29.2 % Griggs % (Auto) 8.2 % Eos % (Auto) 2.2 % Baso % (Auto) 1.0 % Neut # (Auto) 3.43 (1.8-7.7) 10^3/u L Lymph # (Auto) 1.7 (0.8-4.8) 10^3/u L Griggs # (Auto) 0.5 (0.2-0.9) 10^3/u L Eos # (Auto) 0.1 (0.0-0.8) 10^3/u L Baso # (Auto) 0.1 (0.0-0.1) 10^3/u L Nucleated RBC % (a uto) 0 % Nucleated RBCs # 0.0 /100WBC Sodium 135 L (136-145) mmol/L Potassium 3.8 (3.5-5.1) mmol/L Chloride 100 (98-107) mmol/L Carbon Dioxide 18 L (22-29) mmol/L Anion Gap 20.8 H (5-19) BUN 6 (6-20) mg/dL Creatinine 0.4 L (0.5-0.9) mg/dL GFR Calculation 180.6 H (90-130) mL/min Glucose 345 H (65-115) mg/dL Calculated Osmolal ity 291 (285-295) mOsm/k g Calcium 9.0 (8.5-10.5) mg/dL Total Bilirubin 0.2 (0.15-1.2) mg/dL AST 10 (0-32) U/L ALT 14 (0-33) U/L Alkaline Phosphata se 62 (35-105) IU/L Total Protein 7.1 (6.6-8.7) g/dL Albumin 3.7 (3.5-5.2) g/dL Globulin 3.4 (1.3-4.6) g/dL Urine Color (Yellow) Urine Appearance (CLEAR) Urine pH (5-7) Ur Specific Gravit y (1.005-1.030) Urine Protein (Negative) Urine Glucose (UA) (Normal) Urine Ketones (Negative) Urine Blood (Negative) Urine Nitrate (Negative) Urine Bilirubin (Negative) Urine Urobilinogen (Negative) mg/dL Ur Leukocyte Yasmin ase (Negative) Urine RBC (0-2) /hpf Urine WBC (0-5) /hpf Ur Squamous Epith Cells (0-5) /hpf Amorphous Sediment Urine Bacteria (NONE) /hpf Urine Mucus /hpf Urine HCG, Qual (Negative) Salicylates < 0.3 L (3-10) mg/dL Urine Opiates Scre en (Negative) ng/mL Acetaminophen 21.9 (10-30) ug/mL Ur Barbiturates Sc reen (Negative) ng/mL Ur Phencyclidine S crn (Negative) ng/mL Ur Amphetamines Sc reen (Negative) ng/mL U Benzodiazepines Scrn (Negative) ng/mL Urine Cocaine Scre en (Negative) ng/mL U Marijuana (THC) Screen (Negative) ng/mL Ethyl Alcohol 34 H (0-10) mg/dL Discharge Plan Discharge Patient Disposition: Admitted As Inpatient Admit Provider: Seb Gomez Clinical Impression: Suicidal ideations Condition: Stable Sign Out Sign Out Data: Patient Sign Out occurred on 05/10/20 at 18:29. Patient's care was discussed, and care was transferred from GEORGIANA Lees to Carlin Ramires MD, [facility] [place]. Sign Out Comment: Dr Gomez accepted patient to [facility] - transfer of care to Dr Ramires for inpatient orders/evaluation Last updated by Lucina Luu ARNP at 05/10/20 17:45 Coding Level of Care Code ED Facing Machine Operator for Chg Fwd Exam Comprehensive Documented by User: Carlin Ramires MD, [facility] [place] 05/10/20 18:44 HPI - Psych General: Chief Complaint: Psychiatric Symptoms Stated Complaint: St,SI MHE Time Seen by Provider: 05/10/20 15:41 PFSH ED PFSH: Medical History Diabetes type 2 Hypertriglyceridemia No pertinent past medical history neghx: htn,thyroid,dvt/pe PCOS (polycystic ovarian syndrome) Surgical History History of hip surgery (~1996) Pinned due to growth plate slipped History of laparotomy (~06/2001) removal of ovarian cyst and left fallopian tube due to damage - [facility] Family History Grandmother Diabetes Paternal Ovarian cancer Paternal-- dx age 60's Grandfather Diabetes Paternal Mother Hypercholesteremia Denies family history of Colon cancer Heart disease Breast cancer Hypertension Uterine cancer Thyroid disease Stroke Social History Additional social history: - Tobacco use: Never Alcohol use: occasional Drug use: denies MDM - Psych MDM Narrative: Medical decision making narrative: 35-year-old female patient with severe depression and who had suicidal thoughts today. She sent her friend a picture of a gun and alcohol with implication that she was going to shoot herself. Her friend immediately went to get her and found to guns in the patient's house. The patient has been medically cleared and she is going to be admitted to the neuropsychiatric unit for further evaluation and management. Kindly see the midlevel providers note for complete history and physical examination. Lab Data: Labs: Lab Results 05/10/20 05/10/20 05/10/20 Range/Units 15:50 15:50 15:50 WBC (4.0-10.0) 10^3/ uL RBC (4.1-5.3) 10^6/u L Hgb (11.5-15.3) g/dL Hct (37.0-47.0) % MCV (81-99) fL MCH (28.0-34.0) pg MCHC (30.0-36.0) g/dL RDW (12.1-15.1) % Plt Count (130-400) 10^3/c mm MPV (7.4-10.4) fL Neut % (Auto) % Lymph % (Auto) % [place] % (Auto) % Eos % (Auto) % Baso % (Auto) % Neut # (Auto) (1.8-7.7) 10^3/u L Lymph # (Auto) (0.8-4.8) 10^3/u L Griggs # (Auto) (0.2-0.9) 10^3/u L Eos # (Auto) (0.0-0.8) 10^3/u L Baso # (Auto) (0.0-0.1) 10^3/u L Nucleated RBC % (a uto) % Nucleated RBCs # /100WBC Sodium (136-145) mmol/L Potassium (3.5-5.1) mmol/L Chloride (98-107) mmol/L Carbon Dioxide (22-29) mmol/L Anion Gap (5-19) BUN (6-20) mg/dL Creatinine (0.5-0.9) mg/dL GFR Calculation (90-130) mL/min Glucose (65-115) mg/dL Calculated Osmolal ity (285-295) mOsm/k g Calcium (8.5-10.5) mg/dL Total Bilirubin (0.15-1.2) mg/dL AST (0-32) U/L ALT (0-33) U/L Alkaline Phosphata se (35-105) IU/L Total Protein (6.6-8.7) g/dL Albumin (3.5-5.2) g/dL Globulin (1.3-4.6) g/dL Urine Color Straw (Yellow) Urine Appearance Sl hazy (CLEAR) Urine pH 5.0 (5-7) Ur Specific Gravit y 1.010 (1.005-1.030) Urine Protein Trace (Negative) Urine Glucose (UA) 4+ H (Normal) Urine Ketones 1+ H (Negative) Urine Blood 2+ H (Negative) Urine Nitrate Negative (Negative) Urine Bilirubin Neg (Negative) Urine Urobilinogen Norm (Negative) mg/dL Ur Leukocyte Yasmin ase Negative (Negative) Urine RBC 0-4 H (0-2) /hpf Urine WBC None (0-5) /hpf Ur Squamous Epith Cells 40-55 H (0-5) /hpf Amorphous Sediment Not Reportable Urine Bacteria 1+ H (NONE) /hpf Urine Mucus Trace /hpf Urine HCG, Qual Negative (Negative) Salicylates (3-10) mg/dL Urine Opiates Scre en Negative (Negative) ng/mL Acetaminophen (10-30) ug/mL Ur Barbiturates Sc reen Negative (Negative) ng/mL Ur Phencyclidine S crn Negative (Negative) ng/mL Ur Amphetamines Sc reen Negative (Negative) ng/mL U Benzodiazepines Scrn Negative (Negative) ng/mL Urine Cocaine Scre en Negative (Negative) ng/mL U Marijuana (THC) Screen Positive H (Negative) ng/mL Ethyl Alcohol (0-10) mg/dL 05/10/20 05/10/20 Range/Units 15:55 15:55 WBC 5.9 (4.0-10.0) 10^3/ uL RBC 4.74 (4.1-5.3) 10^6/u L Hgb 14.2 (11.5-15.3) g/dL Hct 43.2 (37.0-47.0) % MCV 91.1 (81-99) fL MCH 30.0 (28.0-34.0) pg MCHC 32.9 D (30.0-36.0) g/dL RDW 11.8 L (12.1-15.1) % Plt Count 272 (130-400) 10^3/c mm MPV 9.3 (7.4-10.4) fL Neut % (Auto) 58.7 % Lymph % (Auto) 29.2 % Griggs % (Auto) 8.2 % Eos % (Auto) 2.2 % Baso % (Auto) 1.0 % Neut # (Auto) 3.43 (1.8-7.7) 10^3/u L Lymph # (Auto) 1.7 (0.8-4.8) 10^3/u L Griggs # (Auto) 0.5 (0.2-0.9) 10^3/u L Eos # (Auto) 0.1 (0.0-0.8) 10^3/u L Baso # (Auto) 0.1 (0.0-0.1) 10^3/u L Nucleated RBC % (a uto) 0 % Nucleated RBCs # 0.0 /100WBC Sodium 135 L (136-145) mmol/L Potassium 3.8 (3.5-5.1) mmol/L Chloride 100 (98-107) mmol/L Carbon Dioxide 18 L (22-29) mmol/L Anion Gap 20.8 H (5-19) BUN 6 (6-20) mg/dL Creatinine 0.4 L (0.5-0.9) mg/dL GFR Calculation 180.6 H (90-130) mL/min Glucose 345 H (65-115) mg/dL Calculated Osmolal ity 291 (285-295) mOsm/k g Calcium 9.0 (8.5-10.5) mg/dL Total Bilirubin 0.2 (0.15-1.2) mg/dL AST 10 (0-32) U/L ALT 14 (0-33) U/L Alkaline Phosphata se 62 (35-105) IU/L Total Protein 7.1 (6.6-8.7) g/dL Albumin 3.7 (3.5-5.2) g/dL Globulin 3.4 (1.3-4.6) g/dL Urine Color (Yellow) Urine Appearance (CLEAR) Urine pH (5-7) Ur Specific Gravit y (1.005-1.030) Urine Protein (Negative) Urine Glucose (UA) (Normal) Urine Ketones (Negative) Urine Blood (Negative) Urine Nitrate (Negative) Urine Bilirubin (Negative) Urine Urobilinogen (Negative) mg/dL Ur Leukocyte Yasmin ase (Negative) Urine RBC (0-2) /hpf Urine WBC (0-5) /hpf Ur Squamous Epith Cells (0-5) /hpf Amorphous Sediment Urine Bacteria (NONE) /hpf Urine Mucus /hpf Urine HCG, Qual (Negative) Salicylates < 0.3 L (3-10) mg/dL Urine Opiates Scre en (Negative) ng/mL Acetaminophen 21.9 (10-30) ug/mL Ur Barbiturates Sc reen (Negative) ng/mL Ur Phencyclidine S crn (Negative) ng/mL Ur Amphetamines Sc reen (Negative) ng/mL U Benzodiazepines Scrn (Negative) ng/mL Urine Cocaine Scre en (Negative) ng/mL U Marijuana (THC) Screen (Negative) ng/mL Ethyl Alcohol 34 H (0-10) mg/dL Discharge Plan Discharge Patient Disposition: Admitted As Inpatient Admit Provider: Seb Gomez Clinical Impression: Suicidal ideations Condition: Stable Sign Out Sign Out Data: Patient Sign Out occurred on 05/10/20 at 18:29. Patient's care was discussed, and care was transferred from GEORGIANA Lees to Carlin Ramires MD, [facility] [place]. Sign Out Comment: Dr Gomez accepted patient to [facility] - transfer of care to Dr Ramires for inpatient orders/evaluation Last updated by Lucina Luu ARNP at 05/10/20 17:45 Coding Level of Care Code ED Facing Machine Operator for Chg Fwd Exam Comprehensive
[2020-05-10 16:16] LABS: Basophils # 0.1 10^3/uL (0.0-0.1); Eosinophils # 0.1 10^3/uL (0.0-0.8); Eosinophils % 2.2 %; Hematocrit 43.2 % (37.0-47.0); Hemoglobin 14.2 g/dL (11.5-15.3); Lymphocytes # 1.7 10^3/uL (0.8-4.8); Lymphocytes % 29.2 %; Mean Corpuscular HGB Conc 32.9 g/dL (30.0-36.0); Mean Corpuscular Volume 91.1 fL (81-99); Mean Platelet Volume 9.3 fL (7.4-10.4); Monocytes # 0.5 10^3/uL (0.2-0.9); Monocytes % 8.2 %; Neutrophils # 3.43 10^3/uL (1.8-7.7); Neutrophils % 58.7 %; Nucleated Red Blood Cells % 0 %; Platelet Count 272 10^3/cmm (130-400); Red Blood Count 4.74 10^6/uL (4.1-5.3); Red Cell Distribution Width 11.8 % (12.1-15.1); White Blood Count 5.9 10^3/uL (4.0-10.0)
[2020-05-10 16:32] LABS: Acetaminophen 21.9 ug/mL (10-30); Alanine Aminotransferase 14 U/L (0-33); Albumin Level 3.7 g/dL (3.5-5.2); Alcohol Level 34 mg/dL (0-10); Alkaline Phosphatase 62 IU/L (35-105); Anion Gap 20.8 (5-19); Aspartate Amino Transferase 10 U/L (0-32); Blood Urea Nitrogen 6 mg/dL (6-20); Carbon Dioxide 18 mmol/L (22-29); Chloride 100 mmol/L (98-107); Globulin 3.4 g/dL (1.3-4.6); Glomerular Filtration Rate 180.6 mL/min (90-130); Glucose 345 mg/dL (65-115); Osmolality Calculated 291 mOsm/kg (285-295); Potassium 3.8 mmol/L (3.5-5.1); Sodium 135 mmol/L (136-145); Total Bilirubin 0.2 mg/dL (0.15-1.2); Total Protein 7.1 g/dL (6.6-8.7)
[2020-05-10 16:34] LABS: Salicylate < 0.3 mg/dL (3-10)
[2020-05-10 16:45] VITALS: BP 145/89; PULSE 88; RESP 18; O2SAT 99
[2020-05-10] MEDS: hyDROXYzine 25 mg Capsule PO (16:46)
[2020-05-10] MEDS: ondansetron 4 MG Tablet PO (16:46)
[2020-05-10 16:56] LABS: Add Urine Microscopic? YES; Bilirubin Urine Neg (Negative); Blood Urine 2+ (Negative); Glucose Urine UA 4+ (Normal); Ketones Urine 1+ (Negative); Leukocyte Esterase Urine Negative (Negative); Nitrate Urine Negative (Negative); Protein Urine Trace (Negative); Urine Appearance SL Hazy (CLEAR); Urine Color Straw (Yellow); Urobilinogen Urine Norm (Negative)
[2020-05-10 17:11] LABS: Add Urine Culture? No; Bacteria Urine 1+ /hpf; Mucus Urine TRACE /hpf; RBC Urine 0-4 /hpf (0-2); Squamous Epithelial Cell Urine 40-55 /hpf (0-5)
[2020-05-10 17:12] LABS: Amphetamines Screen Urine Negative (Negative); Barbiturates Screen Urine Negative (Negative); Benzodiazepines Screen Urine Negative (Negative); Cocaine Screen Urine Negative (Negative); Opiate Screen Urine Negative (Negative); PCP Screen Urine Negative (Negative); THC Screen Urine Positive (Negative)
[2020-05-10 17:30] VITALS: RESP 18
[2020-05-10 19:45] VITALS: BP 132/79; PULSE 74; RESP 18; O2SAT 97
[2020-05-10 21:21] LABS: Glucose Point of Care 315 mg/dL (70-110)
[2020-05-10] MEDS: metformin 500 mg Tablet 1000 MG PO (21:27)
[2020-05-10 22:00] VITALS: BP 155/91; PULSE 92; RESP 17; TEMP 36.8; O2SAT 98
[2020-05-11 06:00] VITALS: BP 128/85; PULSE 80; RESP 16; TEMP 36.3; O2SAT 99
[2020-05-11] MEDS: citalopram 20 mg Tablet 40 MG PO (06:36)
[2020-05-11] MEDS: metformin 500 mg Tablet 1000 MG PO ×2 (06:36→22:06)
[2020-05-11] MEDS: lisinopril 5 mg Tablet PO (06:36)
[2020-05-11 07:08] LABS: Glucose Point of Care 179 mg/dL (70-110)
[2020-05-11 11:34] LABS: Glucose Point of Care 236 mg/dL (70-110)
--- NOTE | 2020-05-11 12:53 | PM.NHP ---
Providers/Chief Complaint Admitting Physician: Seb Gomez MD Primary Care Provider: Mark Guy DO Chief Complaint: St,SI MHE HPI NPU History of Present Illness Marcelina Echeverria is a 35 year old female who presented to the emergency department with the following report: Chief Complaint: Psychiatric Symptoms Stated Complaint: St,SI MHE Time Seen by Provider: 05/10/20 15:41 Source: patient and other (friend) Mode of arrival: ambulatory Limitations: no limitations History of Present Illness: HPI Narrative: 35-year-old female patient presents to the emergency department via private auto, she presents with her friend. She is brought to the emergency department due to suicidal thoughts and increased depression symptoms/anxiety since a break-up from her spouse in January. She has battled depression and anxiety since break-up. She reports she helped raise her stepchild and custody was granted to the father. She sent a picture of a gun and alcohol in the floor to her friend and stated she did not care what happens -her friend immediately went to the home and picked her up. Her friend reports there were 2 guns in the home. She was able to talk Marcelina into coming to the ED today for psychiatric evaluation. Marcelina reports she has experienced increased episodes of cutting her arms and legs, thoughts of self-harm on several occasions, she does not have history of suicidal thoughts plans, denies hallucinations, she reports daily use of THC along with EtOH use this morning, tequila. complaint: suicidal ideation and feels depressed Onset (ago): month(s) (2-3) Duration: intermittent and getting worse History of same: No Context: significant life stressor Associated psychiatric symptoms: depression and suicidal ideation Associated symptoms: Reports depression and suicidal ideation Treatments prior to arrival: none If self harm: admits thoughts of self harm and has plan Details of plan: picture of gun and alcohol bottle sent to her friend. She was admitted to the neuropsychiatric unit for definitive treatment of those issues. Today she presents reporting that she has never been hospitalized before. She reports that she is never been in treatment except for her PCP prescribed Celexa which is now up to 40 mg daily. She reports he smokes cigarettes occasionally, alcohol may be a couple drinks a week, and smokes marijuana daily. She denies cocaine methamphetamine and opiate use. She is never been to a rehab and is never had a DUI. She reports being overwhelmed to some degree about the loss of her marriage which happened very abruptly as well as the loss of her daughter who is technically her stepdaughter but that she has raised since 8 months old. She reports she has been coping with that well and that she has been having depression and suicidal thoughts and anxiety and yesterday was making some suicidal threats. We discussed the risk benefits and alternatives of making some changes in her medication and adding some medication to her regimen and she understood and agreed to proceed as is documented in this note. There was a gun involved in her suicidal threat and has remove the gun from the house. Psychiatric history: As above. Substance abuse history: As above. Family history: She endorses mental health issues on her dad side and is not really sure about her mom side, she endorses addiction issues on both sides of the family. She reports that her father had suicide attempts earlier in her life. Developmental history: She denies any issues with her or delivery or the that preceded it. She reports she learned to walk and talk and met her developmental milestones on time. She reports that she did not need speech therapy, learning support, emotional support or special education classes when she went off to school. Psychosocial history: She endorses that her mother and father were together and stayed together until she graduated from high school. She had an older brother that was a product of that same union. Neither parents had any other children. She reports that her childhood was okay but she had a lot of drinking and fighting with her parents during her childhood. She reports that there may have been some emotional abuse but she denied physical or sexual abuse. She graduated from high school and had some college. She is a heterosexual with her longest relationship being 14 years which was her first marriage. She is been 2 times and twice. Second divorce was filed in February 2020 and made final in April 2020. She has never had biological children but excepted her 4-year-old daughter as her own and raised her since 8 months old. She is never been in the and has no church belief system. She reports her longest employment was 12 years and [employer]. She currently is employed. She currently lives in a trailer alone but her boyfriend is about to move in with therapy Legal history: She denies ever being in prison or having any legal peril. Medical history: She endorses having diabetes. Meds NPU Home Medications Medication Instructions Recorded Confirmed Last Taken Type atorvastatin 20 mg PO BEDTIME@2200 08/18/19 05/10/20 05/08/20 History fenofibric acid (choline) 135 mg PO DAILY@0 08/18/19 05/10/20 05/07/20 History insulin detemir U-100 [Levemir 90 unit SUBCUT BID 08/18/19 05/11/20 05/08/20 History U-100 Insulin] metformin 1,000 mg PO BID@0630,2200 08/18/19 05/10/20 05/08/20 History citalopram 40 mg tablet 40 mg PO DAILY@0630 03/27/20 05/10/20 05/08/20 History dulaglutide 1.5 mg/0.5 mL 1.5 mg SUBCUT .weekly ml 04/19/20 05/10/20 05/08/20 History subcutaneous pen injector lisinopril 5 mg PO DAILY@0630 05/10/20 05/10/20 05/08/20 History Allergies Allergy/AdvReac Type Severity Reaction Status Date / Time No Known Allergies Allergy Verified 04/19/20 09:22 PFSH NPU PFSH: Medical History Diabetes type 2 Hypertriglyceridemia No pertinent past medical history neghx: htn,thyroid,dvt/pe PCOS (polycystic ovarian syndrome) Surgical History History of hip surgery (~1996) Pinned due to growth plate slipped History of laparotomy (~06/2001) removal of ovarian cyst and left fallopian tube due to damage - Andrew Family History Grandmother Diabetes Paternal Ovarian cancer Paternal-- dx age 60's Grandfather Diabetes Paternal Mother Hypercholesteremia Denies family history of Colon cancer Heart disease Breast cancer Hypertension Uterine cancer Thyroid disease Stroke Social History Additional social history: - Tobacco use: Never Alcohol use: occasional Drug use: denies Mental Status Exam MSE Comments: This is an obese white female with hospital scrubs on with adequate grooming and eye contact. No abnormal movements except for psychomotor retardation. Cooperative with exam in mild distress. Speech was decreased rate and volume. Mood described as depressed, affect congruent. Thought process organized. Thought content: Patient endorsed suicidal ideation but denied homicidal ideation, there were no delusions reported or noted, she denied any auditory or visual hallucinations. Attention and concentration intact and memory appeared reliable but none were formed tested. She is alert and oriented x3. Insight and judgment are fair and impulse control is impaired. Vitals/I&O/Wt Last Vital Signs Temp 97.3 F L 05/11/20 06:00 Pulse 80 05/11/20 06:00 Resp 16 05/11/20 06:00 BP 128/85 05/11/20 06:00 Pulse Ox 99 05/11/20 06:00 Weight last 48 hrs Weight 104.326 kg Data NPU : 05/10/20 15:55 05/10/20 15:55 A&P Assessment and plan (1) Anxiety: Status: Acute (2) Hyperglycemia: Status: Acute (3) Suicidal ideations: Status: Acute (4) Hypertriglyceridemia: Status: Acute (5) Depression: Status: Acute (6) Parent-child relational problem: Status: Acute (7) Marital or partner relational problem: Status: Acute (8) Cannabis abuse: Status: Acute Additional A&P Information This is a 35-year-old white female with a relatively history of depression and anxiety with a recent break-up and estrangement from her daughter who presents with suicidal thoughts and reporting her medication has been ineffective. 1. Continue current medication. We will initiate Wellbutrin XL 150 mg p.o. every morning. We will decrease Celexa to 20 mg p.o. daily and switch to Lexapro 10 mg p.o. daily in 2 days with an ultimate plan to go up to 20 mg after discharge. 2. Continue every 15 minute checks for safety. 3. Encourage individual, group and milieu therapy. 4. We will encourage sober living treatment after discharge at the highest level of care to which she is willing to. 5. We will observe for safety and reference to the 96-hour hold before discharge. Involuntary Hold Information 96 Hour Hold: 96 Hour Involuntary Admission: Yes 96 Hour Hold Ending Date: 05/16/20 96 Hour Hold Ending Time: 15:30 Attestations NPU Medical Necessity Statement*: Inpatient hospitalization is medically necessary and the clinically appropriate intervention at this time. We will monitor medications and make changes as indicated. She will be in the hospital for over 2 midnights. Likely length of stay 3 to 5 days. Coding Level of Care Code Acute [facility] [employer] [facility] for [place] Fwd Diagnoses Anxiety F41.9 Hyperglycemia R73.9 Suicidal ideations R45.851 Hypertriglyceridemia E78.1 Depression F32.9 Parent-child relational problem Z62.820 Marital or partner relational problem Z63.0 Cannabis abuse F12.10
[2020-05-11 14:00] VITALS: BP 124/83; PULSE 82; RESP 18; TEMP 36.6; O2SAT 97
[2020-05-11 17:00] LABS: Glucose Point of Care 187 mg/dL (70-110)
[2020-05-11] MEDS: buPROPion SR (12 HR) 150 mg Tablet PO (17:14)
[2020-05-11 20:05] LABS: Glucose Point of Care 271 mg/dL (70-110)
[2020-05-11 20:07] VITALS: BP 131/85; PULSE 81; RESP 18; TEMP 36.9; O2SAT 97
[2020-05-11] MEDS: hyDROXYzine 25 mg Capsule 50 MG PO (22:07)
[2020-05-11] MEDS: atorvastatin 40 mg Tablet 20 MG PO (22:08)
[2020-05-12 06:00] VITALS: BP 123/75; PULSE 97; RESP 18; TEMP 36.6; O2SAT 99
[2020-05-12] MEDS: metformin 500 mg Tablet 1000 MG PO ×2 (06:24→21:36)
[2020-05-12] MEDS: lisinopril 5 mg Tablet PO (06:24)
[2020-05-12] MEDS: citalopram 20 mg Tablet PO (06:25)
[2020-05-12 06:31] LABS: Glucose Point of Care 117 mg/dL (70-110)
[2020-05-12] MEDS: buPROPion XL (24 HR) 150 mg Tablet PO (08:54)
[2020-05-12 11:20] LABS: Glucose Point of Care 234 mg/dL (70-110)
[2020-05-12 14:00] VITALS: BP 116/74; PULSE 82; RESP 16; TEMP 36.6; O2SAT 96
[2020-05-12 16:42] LABS: Glucose Point of Care 266 mg/dL (70-110)
--- NOTE | 2020-05-12 19:12 | P.PN_ITS ---
Subjective NPU Subjective: Interval history: Marcelina presents today reporting that she is tolerating the medications well. We continue to plan for the ongoing switch over from Celexa to Lexapro and additionally agreed to work on discharge planning. The treatment team was able to discuss the gun situation with the her significant other and he assured us that she would no longer have access to the weapon and she also reported no longer having desire to interact with a gun or do anything lethal in any way. She reports she is eating and sleeping well and denied any difficulties. Mental Status Exam MSE Comments: This is an obese white female with hospital scrubs on with adequate grooming and eye contact. No abnormal movements except for resolving mild psychomotor retardation. Cooperative with exam in no acute distress. Speech was more normal rate and volume. Mood described as better, affect congruent. Thought process organized. Thought content: Patient denied suicidal or homicidal ideation, there were no delusions reported or noted, she denied any auditory or visual hallucinations. Attention and concentration intact and memory appeared reliable but none were formed tested. She is alert and oriented x3. Insight and judgment are fair, and improving and impulse control is improving. Vitals/I&O/Wt Last Vital Signs Temp 97.9 F 05/12/20 14:00 Pulse 82 05/12/20 14:00 Resp 16 05/12/20 14:00 BP 116/74 05/12/20 14:00 Pulse Ox 96 05/12/20 14:00 Data NPU : 05/10/20 15:55 05/10/20 15:55 A&P Additional A&P Information (1) Anxiety: (2) Hyperglycemia: (3) Suicidal ideations: (4) Hypertriglyceridemia: (5) Depression: (6) Parent-child relational problem: (7) Marital or partner relational problem: (8) Cannabis abuse: Additional A&P Information This is a 35-year-old white female with a relatively history of depression and anxiety with a recent break-up and estrangement from her daughter who presents with suicidal thoughts and reporting her medication has been ineffective. 1. Continue current medication. We will discontinue Celexa and start Lexapro 10 mg p.o. daily with an ultimate plan to go up to 20 mg after discharge. 2. Continue every 15 minute checks for safety. 3. Encourage individual, group and milieu therapy. 4. We will encourage sober living treatment after discharge at the highest level of care to which she is willing to. 5. We will observe for safety and reference to the 96-hour hold before discharge. Involuntary Hold Information 96 Hour Hold: 96 Hour Involuntary Admission: Yes 96 Hour Hold Ending Date: 05/16/20 96 Hour Hold Ending Time: 15:30 Attestations NPU Medical Necessity Statement*: Inpatient hospitalization is medically necessary and the clinically appropriate intervention at this time. We will monitor medications and make changes as indicated. Likely length of stay 1-3 days. Coding Level of Care Code Acute Food Preparation Kitchen Aide for Avila Molina
[2020-05-12 19:57] LABS: Glucose Point of Care 272 mg/dL (70-110)
[2020-05-12] MEDS: escitalopram 10 mg Tablet PO (19:59)
[2020-05-12 20:08] VITALS: BP 129/85; PULSE 85; RESP 18; TEMP 36.7; O2SAT 96
[2020-05-12] MEDS: atorvastatin 40 mg Tablet 20 MG PO (21:35)
[2020-05-13 02:24] LABS: Glucose Point of Care 79 mg/dL (70-110)
[2020-05-13 06:00] VITALS: BP 134/85; PULSE 91; RESP 18; TEMP 36.9; O2SAT 98
[2020-05-13] MEDS: metformin 500 mg Tablet 1000 MG PO (06:27)
[2020-05-13] MEDS: lisinopril 5 mg Tablet PO (06:27)
[2020-05-13 06:46] LABS: Glucose Point of Care 121 mg/dL (70-110)
[2020-05-13] MEDS: escitalopram 10 mg Tablet PO (08:02)
[2020-05-13] MEDS: buPROPion XL (24 HR) 150 mg Tablet PO (08:02)
[2020-05-13 08:54] VITALS: BP 134/85; PULSE 91; RESP 18; TEMP 36.9; O2SAT 98
--- NOTE | 2020-05-13 08:55 | P.DS_ITS ---
Diagnoses at Discharge Discharge Diagnosis (1) Anxiety: Status: Inactive (2) Hyperglycemia: Status: Inactive (3) Suicidal ideations: Status: Resolved (4) Hypertriglyceridemia: Status: Acute (5) Depression: Status: Acute (6) Parent-child relational problem: Status: Acute (7) Marital or partner relational problem: Status: Acute (8) Cannabis abuse: Status: Acute Reason for Visit Reason for Visit: St,SI MHE Brief History: History of Present Illness Marcelina Echeverria is a 35 year old female who presented to the emergency department with the following report: Chief Complaint: Psychiatric Symptoms Stated Complaint: St,SI MHE Time Seen by Provider: 05/10/20 15:41 Source: patient and other (friend) Mode of arrival: ambulatory Limitations: no limitations History of Present Illness: HPI Narrative: 35-year-old female patient presents to the emergency department via private auto, she presents with her friend. She is brought to the emergency department due to suicidal thoughts and increased depression symptoms/anxiety since a break-up from her spouse in January. She has battled depression and anxiety since break-up. She reports she helped raise her stepchild and custody was granted to the father. She sent a picture of a gun and alcohol in the floor to her friend and stated she did not care what happens -her friend immediately went to the home and picked her up. Her friend reports there were 2 guns in the home. She was able to talk Marcelina into coming to the ED today for psychiatric evaluation. Marcelina reports she has experienced increased episodes of cutting her arms and legs, thoughts of self-harm on several occasions, she does not have history of suicidal thoughts plans, denies hallucinations, she reports daily use of THC along with EtOH use this morning, tequila. complaint: suicidal ideation and feels depressed Onset (ago): month(s) (2-3) Duration: intermittent and getting worse History of same: No Context: significant life stressor Associated psychiatric symptoms: depression and suicidal ideation Associated symptoms: Reports depression and suicidal ideation Treatments prior to arrival: none If self harm: admits thoughts of self harm and has plan Details of plan: picture of gun and alcohol bottle sent to her friend. She was admitted to the neuropsychiatric unit for definitive treatment of those issues. Today she presents reporting that she has never been hospitalized before. She reports that she is never been in treatment except for her PCP prescribed Celexa which is now up to 40 mg daily. She reports he smokes cigarettes occasionally, alcohol may be a couple drinks a week, and smokes marijuana daily. She denies cocaine methamphetamine and opiate use. She is never been to a rehab and is never had a DUI. She reports being overwhelmed to some degree about the loss of her marriage which happened very abruptly as well as the loss of her daughter who is technically her stepdaughter but that she has raised since 8 months old. She reports she has been coping with that well and that she has been having depression and suicidal thoughts and anxiety and yesterday was making some suicidal threats. We discussed the risk benefits and alternatives of making some changes in her medication and adding some medication to her regimen and she understood and agreed to proceed as is documented in this note. There was a gun involved in her suicidal threat and has remove the gun from the house. Psychiatric history: As above. Substance abuse history: As above. Family history: She endorses mental health issues on her dad side and is not really sure about her mom side, she endorses addiction issues on both sides of the family. She reports that her father had suicide attempts earlier in her life. Developmental history: She denies any issues with her or delivery or the that preceded it. She reports she learned to walk and talk and met her developmental milestones on time. She reports that she did not need speech therapy, learning support, emotional support or special education classes when she went off to school. Psychosocial history: She endorses that her mother and father were together and stayed together until she graduated from high school. She had an older brother that was a product of that same union. Neither parents had any other children. She reports that her childhood was okay but she had a lot of drinking and fighting with her parents during her childhood. She reports that there may have been some emotional abuse but she denied physical or sexual abuse. She graduated from high school and had some college. She is a heterosexual with her longest relationship being 14 years which was her first marriage. She is been 2 times and twice. Second divorce was filed in February 2020 and made final in April 2020. She has never had biological children but excepted her 4-year-old shahab nayak as her own and raised her since 8 months old. She is never been in the and has no quaker belief system. She reports her longest employment was 12 years and [employer]. She currently is employed. She currently lives in a trailer alone but her boyfriend is about to move in with therapy Legal history: She denies ever being in senior living or having any legal peril. Medical history: She endorses having diabetes. Hospital Course Hospital Course Marcelina presented to the emergency department with depression, anxiety, issues with her ex- and suicidality. She was admitted to the neuropsychiatric unit for definitive treatment of those issues. She quickly acclimated to the individual, group and milieu therapies provided. Celexa was discontinued and transferred over to Lexapro with a planned titration and Wellbutrin XL was initiated with a marked improvement. She was able to contract for safety prior to discharge. During the hospitalization, patient had routine laboratory studies which were within normal limits except for few outliers. Additionally there was a general medical evaluation which was also within normal limits and revealed no new acute processes. Discharge Summary: At the time of discharge, she was absent psychosis and lethality. Mood and anxiety were well managed. Patient endorsed a plan to avoid all drugs of abuse and follow-up with the aftercare recommendations of the treatment team. Patient was evaluated and deemed to be absent credible lethality, and had achieved the maximum benefit from an inpatient hospitalization, so was discharged. Involuntary Hold Information 96 Hour Hold: 96 Hour Involuntary Admission: Yes 96 Hour Hold Ending Date: 05/16/20 96 Hour Hold Ending Time: 15:30 Mental Status Exam MSE Comments: This is an obese white female with hospital scrubs on with adequate grooming and eye contact. No abnormal movements. Cooperative with exam in no acute distress. Speech was more normal rate and volume. Mood described as pretty good, affect congruent. Thought process organized. Thought content: Patient denied suicidal or homicidal ideation, there were no delusions reported or noted, she denied any auditory or visual hallucinations. Attention and concentration intact and memory appeared reliable but none were formed tested. She is alert and oriented x3. Insight and judgment are fair, and improving and impulse control is improving. Discharge Data Vitals: Last Vital Signs Temp 98.5 F 05/13/20 08:54 Pulse 91 05/13/20 08:54 Resp 18 05/13/20 08:54 BP 134/85 05/13/20 08:54 Pulse Ox 98 05/13/20 08:54 Discharge Plan Discharge Patient Disposition: Home Condition: Stable Prescriptions: New escitalopram oxalate 20 mg tablet 20 mg PO DAILY 30 Days Qty: 30 RF: 1 bupropion HCl 150 mg Tablet Extended Release 24 Hr 150 mg PO DAILY 30 Days Qty: 30 RF: 1 Continued Trulicity 1.5 mg/0.5 mL pen injector 1.5 mg SUBCUT .weekly RF: 0 lisinopril 5 mg Tablet 5 mg PO DAILY@06 RF: 0 metformin 500 mg Tablet 1,000 mg PO BID@0630,2200 RF: 0 atorvastatin 20 mg tablet 20 mg PO BEDTIME@2199 RF: 0 Levemir U-100 Insulin 100 unit/mL solution 90 unit SUBCUT BID RF: 0 fenofibric acid (choline) 135 mg capsule,delayed release(DR/EC) 135 mg PO DAILY@2199 RF: 0 Discontinued citalopram [Celexa] 40 mg tablet 40 mg PO DAILY@629 RF: 0 Discharge Orders: Discharge Order (Routine); Ordered 05/13/20 Ordered By: Seb Gomez Referrals: [facility] [Outside] (Intake paperwork was done while at the hospital. They will call you with an appointment once processed.) Discharge Diet: Diabetic Discharge Activity: Resume usual activity Patient Instructions: Depression, Bupropion (By mouth), Escitalopram (By mouth) Discharge Attestations NPU Time Spent in Discharge Care*: less than 30 min Specific Discharge Activities: Specific discharge activities: educating patient, discussing with oil field caser/social workers/dc planners, documenting/other paperwork and evaluating patient/reviewing data Coding Level of Care Code Acute Activity Coordinator for [facility] Fwd Diagnoses Anxiety F41.9 Hyperglycemia R73.9 Suicidal ideations R45.851 Hypertriglyceridemia E78.1 Depression F32.9 Parent-child relational problem Z62.820 Marital or partner relational problem Z63.0 Cannabis abuse F12.10
== END 2020-05-13 09:24 | disposition home or self-care (01) | DRG 880 ==
LOC: ER 15:41 → NP 18:24
PROVIDERS: Nurse Practitioner Family; Admitting Provider Psychiatry & Neurology Psychiatry; Emergency Provider Family Medicine; PCP Electrodiagnostic Medicine; Visit Provider Psychiatry & Neurology Psychiatry
DX: F41.8 Other specified anxiety disorders (principal); R45.851 Suicidal ideations; E11.65 Type 2 diabetes mellitus with hyperglycemia; E78.1 Pure hyperglyceridemia; F12.10 Cannabis abuse, uncomplicated; Z79.4 Long term (current) use of insulin; Z63.0 Problems in relationship with spouse or partner; Z62.890 Parent-child estrangement NEC
CPT/HCPCS: 12345; 36416; 80053; 80306; 80307; 81001; 81025; 82962; 85025; 96372; 99284; J1815; Q0162

== ENCOUNTER → 2020-06-06 10:04 | Outpatient (BNVA) | payer OTHER, SELFPAY | PROVIDERS: PCP Electrodiagnostic Medicine; Visit Provider Obstetrics & Gynecology | DX: Z32.01 Encounter for pregnancy test, result positive (principal) | CPT/HCPCS: 81025 ==

== ENCOUNTER → 2020-06-07 08:17 | Outpatient (BNVA) | payer OTHER, SELFPAY | PROVIDERS: PCP Electrodiagnostic Medicine; Visit Provider Obstetrics & Gynecology | DX: O09.90 Supervision of high risk pregnancy, unspecified, unspecified trimester (principal); O24.919 Unspecified diabetes mellitus in pregnancy, unspecified trimester; R73.9 Hyperglycemia, unspecified | CPT/HCPCS: 36416; 82962; 84315; 87086 ==

== ENCOUNTER → 2020-06-08 15:00 | Outpatient (BNVA) | payer OTHER, MEDICAID, SELFPAY | PROVIDERS: PCP Electrodiagnostic Medicine; Visit Provider Obstetrics & Gynecology | DX: O24.919 Unspecified diabetes mellitus in pregnancy, unspecified trimester (principal); R73.9 Hyperglycemia, unspecified; O09.90 Supervision of high risk pregnancy, unspecified, unspecified trimester | CPT/HCPCS: 84156 ==

== ENCOUNTER 2020-06-27 06:18 | Emergency (ER) | payer OTHER, MEDICAID, SELFPAY ==
[2020-06-27 06:22] VITALS: BP 175/119; PULSE 108; RESP 20; TEMP 36; O2SAT 98; BMI 37.4
--- NOTE | 2020-06-27 06:28 | ED_ITS ---
HPI - General: Chief complaint: Vaginal Bleeding Stated complaint: 9wks preg, vaginal bleeding Time Seen by Provider: 06/27/20 06:22 History of Present Illness: HPI Narrative: 35-year-old female presents to the emergency room with complaint of vaginal bleeding. She states she is 9 weeks . She had some abdominal cramping last night this morning had spotting. Spotting is only when she wipes. She has previously seen Dr. Lockett. She did have a ultrasound which confirmed intrauterine according to the office notes. However she is only 6 weeks and a few days at that time. Does not have any heavy bleeding. She has not needed to use any pads. She is diabetic. Previous at 16 years of age resulted in first trimester miscarriage per the patient. Patient bit essentially has painless spotting. MD Complaint: vaginal bleeding Onset (ago): hour(s) Relieving factors: none Exacerbating factors: none Vaginal discharge: none Vaginal bleeding: light Date of Last Menstrual Period: 04/25/20 Patient : Yes Expected Date of Delivery: 01/29/21 OB History - Current : no complications OB History - Previous Pregnancies: miscarriage (First trimester) care: followed by OB and previous ultrasound confirms IUP Associated symptoms: Reports no associated symptoms and vaginal bleeding (Spotting, only when wipes.); Deny abdominal pain, dyspareunia, dysuria, headache(s), malaise, nausea, rash, seizures, short of breath, syncope, vaginal discharge, visual changes, vomiting or weakness Review of Systems Const: Denies: malaise ENMT: Denies: throat pain, ear or mastoid pain, nasal discharge or nasal congestion Card: Denies: syncope Resp: Denies: dyspnea, productive cough or non-productive cough GI: Denies: abdominal pain, nausea or vomiting : Denies: dysuria, vaginal discharge or dyspareunia Skin/Breast: Denies: rash or pruritus Neuro: Denies: headache(s) PFSH ED PFSH: Medical History Diabetes type 2 Hypertriglyceridemia No pertinent past medical history neghx: htn,thyroid,dvt/pe PCOS (polycystic ovarian syndrome) Supervision of high-risk Surgical History History of hip surgery (~1996) Pinned due to growth plate slipped History of laparotomy (~06/2001) removal of ovarian cyst and left fallopian tube due to damage - Andrew Family History Grandmother Diabetes Paternal Ovarian cancer Paternal-- dx age 60's Grandfather Diabetes Paternal Mother Hypercholesteremia Denies family history of Colon cancer Heart disease Breast cancer Hypertension Uterine cancer Thyroid disease Stroke Social History Smoking and tobacco status: never smoked Alcohol intake: former Desire information about substance/drug rehabilitation?: No Counseling given: No Last substance use date: 05/27/20 Other details last substance use: marijuana Additional social history: - Tobacco use: Never Alcohol use: occasional Drug use: denies Female Reproductive History: Date of last menstrual period: 04/25/20 Physical Exam Const: COMMON NORMALS: no acute distress GENERAL APPEARANCE: cooperative and comfortable ORIENTATION/CONSCIOUSNESS: Yes awake, Yes oriented to person, Yes oriented to place and Yes oriented to time HENMT: COMMON NORMALS: normocephalic, atraumatic and hearing grossly normal bilaterally HEAD & SCALP: normocephalic and atraumatic Neck/C-Spine: COMMON NORMALS: no JVD Resp: COMMON NORMALS: normal respiratory effort, No retractions, No use of accessory muscles and clear to auscultation bilaterally AUSCULTATION: clear to auscultation bilaterally Cardio: COMMON NORMALS: no JVD, regular rate, regular rhythm and No murmurs present (Cardio) RATE: regular rate RHYTHM: regular rhythm GI: COMMON NORMALS: Soft to palpation and No hepatosplenomegaly present AUSCULTATION: Yes normoactive bowel sounds PALPATION: Yes Soft to palpation, No Tenderness to palpation present (GI), No Guarding due to palpation present (GI) and Yes No hepatosplenomegaly present : SPECULUM EXAM - VAGINA: Yes vaginal bleeding (Spotting, only when wipes.) OB/EXTERNAL & SPECULUM: vaginal bleeding (Spotting, only when wipes.) Back/Pelvis: OTHER: Pelvic exam done dorsolithotomy position with nurse present GC chlamydia and wet mount completed no bleeding from the cervical os cervix appears closed. Extremity: COMMON NORMALS: normal to inspection, capillary refill normal, no clubbing, cyanosis or edema, no calf tenderness and no pedal edema Neuro: SENSORIUM/ORIENTATION: Yes oriented to person, Yes oriented to place and Yes oriented to time Skin: COMMON NORMALS: no rashes or lesions noted GENERAL SKIN EXAM: no rashes or lesions noted Course Vital Signs: Vital signs: Vital Signs Temperature 96.8 F L 06/27/20 06:22 Pulse Rate 121 H 06/27/20 07:51 Respiratory Rate 20 H 06/27/20 07:51 Blood Pressure 186/131 06/27/20 07:51 Pulse Oximetry 97 06/27/20 07:51 MDM - OB/Uterine Contractions MDM Narrative: Medical decision making narrative: Reviewed findings with the patient. Intrauterine gestational sac partially in endocervical canal while there is no active bleeding her beta-hCG is the low end of normal and unfortunately there is no heart tones suspected patient most likely has miscarried. Did advise her we would expect her to have further cramping and bleeding over the next few days she needs a repeat beta-hCG with her OB towards the end of this week. If she is has marked increase in bleeding return to the emergency room. Lab Data: Labs: Lab Results 06/27/20 06/27/20 06/27/20 Range/Units 06:47 06:48 06:48 WBC 7.4 (4.0-10.0) 10^3/ uL RBC 4.47 (4.1-5.3) 10^6/u L Hgb 13.4 (11.5-15.3) g/dL Hct 40.6 (37.0-47.0) % MCV 90.8 (81-99) fL MCH 30.0 (28.0-34.0) pg MCHC 33.0 (30.0-36.0) g/dL RDW 11.6 L (12.1-15.1) % Plt Count 324 (130-400) 10^3/c mm MPV 9.2 (7.4-10.4) fL Neut % (Auto) 59.7 % Lymph % (Auto) 31.6 % [place] % (Auto) 6.3 % Eos % (Auto) 1.6 % Baso % (Auto) 0.5 % Neut # (Auto) 4.43 (1.8-7.7) 10^3/u L Lymph # (Auto) 2.4 (0.8-4.8) 10^3/u L [place] # (Auto) 0.5 (0.2-0.9) 10^3/u L Eos # (Auto) 0.1 (0.0-0.8) 10^3/u L Baso # (Auto) 0.0 (0.0-0.1) 10^3/u L Nucleated RBC % (a uto) 0 % Nucleated RBCs # 0.0 /100WBC Sodium (136-145) mmol/L Potassium (3.5-5.1) mmol/L Chloride (98-107) mmol/L Carbon Dioxide (22-29) mmol/L Anion Gap (5-19) BUN (6-20) mg/dL Creatinine (0.5-0.9) mg/dL GFR Calculation (90-130) mL/min Glucose (65-115) mg/dL Calculated Osmolal ity (285-295) mOsm/k g Calcium (8.5-10.5) mg/dL Total Bilirubin (0.15-1.2) mg/dL AST (0-32) U/L ALT (0-33) U/L Alkaline Phosphata se (35-105) IU/L Total Protein (6.6-8.7) g/dL Albumin (3.5-5.2) g/dL Globulin (1.3-4.6) g/dL Ser , Britta i-Qnt mIU/mL Urine Color Straw (Yellow) Urine Appearance Clear (CLEAR) Urine pH 5 (5-7) Ur Specific Gravit y 1.010 (1.005-1.030) Urine Protein 1+ H (Negative) Urine Glucose (UA) 4+ H (Normal) Urine Ketones Negative (Negative) Urine Blood 3+ H (Negative) Urine Nitrate Negative (Negative) Urine Bilirubin Neg (Negative) Urine Urobilinogen Norm (Negative) mg/dL Ur Leukocyte Yasmin ase Negative (Negative) Urine RBC 0-4 H (0-2) /hpf Urine WBC 0-4 H (0-5) /hpf Ur Squamous Epith Cells 0-4 H (0-5) /hpf Amorphous Sediment Not Reportable Urine Bacteria Trace (NONE) /hpf Blood Type A Positive Rho(D) Type Positive 06/27/20 Range/Units 06:48 WBC (4.0-10.0) 10^3/ uL RBC (4.1-5.3) 10^6/u L Hgb (11.5-15.3) g/dL Hct (37.0-47.0) % MCV (81-99) fL MCH (28.0-34.0) pg MCHC (30.0-36.0) g/dL RDW (12.1-15.1) % Plt Count (130-400) 10^3/c mm MPV (7.4-10.4) fL Neut % (Auto) % Lymph % (Auto) % [place] % (Auto) % Eos % (Auto) % Baso % (Auto) % Neut # (Auto) (1.8-7.7) 10^3/u L Lymph # (Auto) (0.8-4.8) 10^3/u L [place] # (Auto) (0.2-0.9) 10^3/u L Eos # (Auto) (0.0-0.8) 10^3/u L Baso # (Auto) (0.0-0.1) 10^3/u L Nucleated RBC % (a uto) % Nucleated RBCs # /100WBC Sodium 134 L (136-145) mmol/L Potassium 4.7 (3.5-5.1) mmol/L Chloride 99 (98-107) mmol/L Carbon Dioxide 22 (22-29) mmol/L Anion Gap 17.7 (5-19) BUN 10 (6-20) mg/dL Creatinine 0.4 L (0.5-0.9) mg/dL GFR Calculation 180.6 H (90-130) mL/min Glucose 299 H (65-115) mg/dL Calculated Osmolal ity 288 (285-295) mOsm/k g Calcium 8.8 (8.5-10.5) mg/dL Total Bilirubin 0.2 (0.15-1.2) mg/dL AST 12 (0-32) U/L ALT 34 H (0-33) U/L Alkaline Phosphata se 47 (35-105) IU/L Total Protein 7.6 (6.6-8.7) g/dL Albumin 4.0 (3.5-5.2) g/dL Globulin 3.6 (1.3-4.6) g/dL Ser , Britta i-Qnt 74778.00 mIU/mL Urine Color (Yellow) Urine Appearance (CLEAR) Urine pH (5-7) Ur Specific Gravit y (1.005-1.030) Urine Protein (Negative) Urine Glucose (UA) (Normal) Urine Ketones (Negative) Urine Blood (Negative) Urine Nitrate (Negative) Urine Bilirubin (Negative) Urine Urobilinogen (Negative) mg/dL Ur Leukocyte Yasmin ase (Negative) Urine RBC (0-2) /hpf Urine WBC (0-5) /hpf Ur Squamous Epith Cells (0-5) /hpf Amorphous Sediment Urine Bacteria (NONE) /hpf Blood Type Rho(D) Type Discharge Plan Discharge Patient Disposition: Home Clinical Impression: Incomplete , Diabetes in Condition: Stable Prescriptions: No Action Trulicity 1.5 mg/0.5 mL pen injector 1.5 mg SUBCUT .weekly RF: 0 insulin aspart U-100 [Novolog U-100 Insulin aspart] 100 unit/mL solution 5 unit SUBCUT TID RF: 0 bupropion HCl [Wellbutrin XL] 150 mg tablet extended release 24 hr 150 mg PO QAM RF: 0 escitalopram oxalate [Lexapro] 20 mg tablet 20 mg PO DAILY RF: 0 metformin 500 mg Tablet 1,000 mg PO BID@0630,2200 RF: 0 Levemir U-100 Insulin 100 unit/mL solution 95 unit SUBCUT BID RF: 0 Discharge Orders: Discharge ED (Routine); Ordered 06/27/20 Ordered By: Nehemiah Marin Referrals: Mark Guy DO [Primary Care Provider] - Discharge Diet: Usual diet Discharge Activity: Increase activity as tolerated Patient Instructions: Opioid Safety Activity Restrictions/Additional Instructions: Low up with your OB doctor in the next 3 to 4 days for repeat lab work and monitoring. If you have increased bleeding greater than 1 pad per hour return to the emergency room. Coding Level of Care Code ED Quality Improvement Analyst for Avila Fwvargas Exam Comprehensive
[2020-06-27 06:58] LABS: Basophils % 0.5 %; Eosinophils # 0.1 10^3/uL (0.0-0.8); Eosinophils % 1.6 %; Hematocrit 40.6 % (37.0-47.0); Hemoglobin 13.4 g/dL (11.5-15.3); Lymphocytes # 2.4 10^3/uL (0.8-4.8); Lymphocytes % 31.6 %; Mean Corpuscular Volume 90.8 fL (81-99); Mean Platelet Volume 9.2 fL (7.4-10.4); Monocytes # 0.5 10^3/uL (0.2-0.9); Monocytes % 6.3 %; Neutrophils # 4.43 10^3/uL (1.8-7.7); Neutrophils % 59.7 %; Nucleated Red Blood Cells % 0 %; Platelet Count 324 10^3/cmm (130-400); Red Blood Count 4.47 10^6/uL (4.1-5.3); Red Cell Distribution Width 11.6 % (12.1-15.1); White Blood Count 7.4 10^3/uL (4.0-10.0)
--- NOTE | 2020-06-27 07:00 | US_ITS ---
WS: [id number] ULTRASOUND EARLY TECHNIQUE: Transabdominal sonography of the pelvis was performed. Followed by transvaginal sonography to better evaluate the uterus and ovaries. CLINICAL INFORMATION: vaginal spotting LMP: 04/24/2020 Beta hCG: Unknown. COMPARISON: None. FINDINGS: UTERUS AND GESTATIONAL SAC Intrauterine gestations: Intrauterine gestation with pole. No visualized cardiac activity. Feta l pole measures 1.0 cm Cervix is closed with incidental nabothian cysts. Estimated gestational age: 7w1d Yolk sac: 0.4 cm. [place] rump length (CRL): 1.1 cm. heart motion: 0 BPM. Subchorionic hemorrhage: None. OVARIES Right ovary not visualized. Left ovary: Left ovarian cyst measuring 5.1 x 5.3 x 2.8 cm FREE FLUID None. US/US OB lmt with transvaginal IMPRESSION: 1. pole with no visualized cardiac activity. Recommend short interval fo llow-up to assess viability. 2. Estimated gestational age 7 weeks 1 day with estimated delivery February 12, 2021 3. Left ovarian cyst. Right ovary not visualized. 4. Normal adnexa. 5. Cervix is closed.
[2020-06-27 07:27] LABS: Add Urine Culture? No; Add Urine Microscopic? YES; Bacteria Urine TRACE /hpf; Bilirubin Urine Neg (Negative); Blood Urine 3+ (Negative); Glucose Urine UA 4+ (Normal); Ketones Urine Negative (Negative); Leukocyte Esterase Urine Negative (Negative); Nitrate Urine Negative (Negative); Protein Urine 1+ (Negative); RBC Urine 0-4 /hpf (0-2); Squamous Epithelial Cell Urine 0-4 /hpf (0-5); Urine Appearance Clear (CLEAR); Urine Color Straw (Yellow); Urobilinogen Urine Norm (Negative); WBC Urine 0-4 /hpf (0-5); pH Urine 5 (5-7)
[2020-06-27 07:28] LABS: Alanine Aminotransferase 34 U/L (0-33); Alkaline Phosphatase 47 IU/L (35-105); Anion Gap 17.7 (5-19); Aspartate Amino Transferase 12 U/L (0-32); Blood Urea Nitrogen 10 mg/dL (6-20); Calcium 8.8 mg/dL (8.5-10.5); Carbon Dioxide 22 mmol/L (22-29); Chloride 99 mmol/L (98-107); Globulin 3.6 g/dL (1.3-4.6); Glomerular Filtration Rate 180.6 mL/min (90-130); Glucose 299 mg/dL (65-115); Osmolality Calculated 288 mOsm/kg (285-295); Potassium 4.7 mmol/L (3.5-5.1); Sodium 134 mmol/L (136-145); Total Bilirubin 0.2 mg/dL (0.15-1.2); Total Protein 7.6 g/dL (6.6-8.7)
--- NOTE | 2020-06-27 07:32 | PC.NURSE ---
us in room pelvic ex completed patient tolerated well
[2020-06-27 07:51] VITALS: BP 186/131; PULSE 121; RESP 20; O2SAT 97
== END 2020-06-27 07:54 | disposition home or self-care (01) ==
PROVIDERS: Emergency Provider Family Medicine; PCP Electrodiagnostic Medicine
DX: O03.4 Incomplete spontaneous abortion without complication (principal); O24.111 Pre-existing type 2 diabetes mellitus, in pregnancy, first trimester; E11.9 Type 2 diabetes mellitus without complications; Z3A.01 Less than 8 weeks gestation of pregnancy; Z79.4 Long term (current) use of insulin
CPT/HCPCS: 36415; 76815; 76817; 80053; 81001; 84702; 85025; 86900; 87210; 87491; 87591; 87661; 99283

== ENCOUNTER → 2020-07-04 09:08 | Outpatient (BNVA) | payer OTHER, MEDICAID, SELFPAY | PROVIDERS: PCP Electrodiagnostic Medicine; Visit Provider Obstetrics & Gynecology | DX: O24.919 Unspecified diabetes mellitus in pregnancy, unspecified trimester (principal); O03.4 Incomplete spontaneous abortion without complication | CPT/HCPCS: 80053; 83036; 84315; 85025 ==

== ENCOUNTER 2020-07-05 01:12 | Emergency (ER) | payer OTHER, MEDICAID, SELFPAY ==
[2020-07-05 01:24] VITALS: BP 135/95; PULSE 116; RESP 20; TEMP 36.3; O2SAT 96; BMI 37.4
[2020-07-05 01:30] VITALS: PULSE 111; RESP 20; O2SAT 96
--- NOTE | 2020-07-05 01:36 | ED_ITS ---
HPI - General: Chief complaint: Vaginal Bleeding Stated complaint: 9 wks pg/excessive vaginal bleeding Time Seen by Provider: 07/05/20 01:15 Source: patient Mode of arrival: ambulatory Limitations: no limitations History of Present Illness: HPI Narrative: 35-year-old female is currently 9 weeks . She had an ultrasound here 2 weeks ago that showed a missed abo rtion. Patient had another yesterday that showed missed . She states that overnight she had passed the tissue has had heavy bleeding along with abdominal cramping. She rates her pain a 6 out of 10. She denies any lightheadedness. Patient denies any worsening improving factors. Denies any vomiting. Date of Last Menstrual Period: 04/25/20 Associated symptoms: Deny abdominal pain, headache(s), nausea or vomiting Related Data: : 2 Review of Systems Const: Denies: fever(s), chills, body aches or change in appetite Eyes: Denies: blurry vision or eye discomfort ENMT: Denies: throat pain or dental pain Card: Denies: chest pain Resp: Denies: dyspnea GI: Denies: abdominal pain, nausea, vomiting or diarrhea : Reports: vaginal bleeding Musc: Denies: neck pain or back pain Skin/Breast: Denies: rash Neuro: Denies: headache(s) Psych: Denies: depression Marcin/Lymph: Denies: easy bruising All/Imm: Denies: urticaria PFSH ED PFSH: Medical History Diabetes type 2 Hypertriglyceridemia No pertinent past medical history neghx: htn,thyroid,dvt/pe PCOS (polycystic ovarian syndrome) Supervision of high-risk Surgical History History of hip surgery (~1996) Pinned due to growth plate slipped History of laparotomy (~06/2001) removal of ovarian cyst and left fallopian tube due to damage - Andrew Family History Grandmother Diabetes Paternal Ovarian cancer Paternal-- dx age 60's Grandfather Diabetes Paternal Mother Hypercholesteremia Denies family history of Colon cancer Heart disease Breast cancer Hypertension Uterine cancer Thyroid disease Stroke Social History Smoking and tobacco status: never smoked Alcohol intake: former Desire information about substance/drug rehabilitation?: No Counseling given: No Last substance use date: 05/27/20 Other details last substance use: marijuana Additional social history: - Tobacco use: Never Alcohol use: occasional Drug use: denies Female Reproductive History: Date of last menstrual period: 04/25/20 : 2 Physical Exam Const: COMMON NORMALS: no acute distress, patient oriented x3 and healthy appearing HENMT: COMMON NORMALS: normocephalic and atraumatic HEAD & SCALP: normocephalic and atraumatic Eye: COMMON NORMALS: Equal, round and reactive pupils present and EOMs intact bilaterally PUPIL: Yes Equal, round and reactive pupils present Neck/C-Spine: COMMON NORMALS: full ROM and supple Chest: COMMONS NORMALS: normal inspection of the chest and normal palpation of entire chest wall Resp: COMMON NORMALS: normal respiratory effort, No retractions, No use of accessory muscles and clear to auscultation bilaterally AUSCULTATION: clear to auscultation bilaterally Cardio: COMMON NORMALS: regular rate, regular rhythm and No murmurs present (Cardio) RATE: regular rate RHYTHM: regular rhythm GI: COMMON NORMALS: Normal to inspection, nondistended, normoactive bowel sounds present, Soft to palpation, non-tender and no masses PALPATION: Yes Soft to palpation Extremity: COMMON NORMALS: normal to inspection and full ROM Neuro: COMMON NORMALS: patient oriented x3, moves all extremities and no focal motor deficits Psych: COMMON NORMALS: mental status grossly normal, Normal thought process p resent and cooperative THOUGHT PROCESS: Normal thought process present Skin: COMMON NORMALS: no rashes or lesions noted and no wounds GENERAL SKIN EXAM: no rashes or lesions noted Course Vital Signs: Vital signs: Vital Signs Temperature 97.3 F L 07/05/20 01:24 Pulse Rate 103 H 07/05/20 02:29 Respiratory Rate 16 07/05/20 02:29 Blood Pressure 135/93 07/05/20 02:29 Pulse Oximetry 96 07/05/20 02:29 MDM - OB/Uterine Contractions MDM Narrative: Medical decision making narrative: Marcelina presents with a likely miscarriage. Her bleeding has improved and her hemoglobin here is normal. She is hyperglycemic and is chronically hyperglycemic. Will prescribe patient Garrett and she needs an outpatient ultrasound in 1 to 2 days and follow-up with her OB. She is return to the ER if worsening. She understands agrees to this plan. Lab Data: Labs: Lab Results 07/05/20 07/05/20 07/05/20 Range/Units 01:48 01:48 02:20 WBC 9.6 (4.0-10.0) 10^3/ uL RBC 4.32 (4.1-5.3) 10^6/u L Hgb 13.0 (11.5-15.3) g/dL Hct 38.1 (37.0-47.0) % MCV 88.2 (81-99) fL MCH 30.1 (28.0-34.0) pg MCHC 34.1 (30.0-36.0) g/dL RDW 11.7 L (12.1-15.1) % Plt Count 257 (130-400) 10^3/c mm MPV 9.6 (7.4-10.4) fL Neut % (Auto) 64.1 % Lymph % (Auto) 26.7 % [place] % (Auto) 6.6 % Eos % (Auto) 1.9 % Baso % (Auto) 0.4 % Neut # (Auto) 6.17 (1.8-7.7) 10^3/u L Lymph # (Auto) 2.6 (0.8-4.8) 10^3/u L [place] # (Auto) 0.6 (0.2-0.9) 10^3/u L Eos # (Auto) 0.2 (0.0-0.8) 10^3/u L Baso # (Auto) 0.0 (0.0-0.1) 10^3/u L Nucleated RBC % (a uto) 0 % Nucleated RBCs # 0.0 /100WBC Sodium 127 L (136-145) mmol/L Potassium 4.3 (3.5-5.1) mmol/L Chloride 93 L (98-107) mmol/L Carbon Dioxide 20 L (22-29) mmol/L Anion Gap 18.3 (5-19) BUN 17 (6-20) mg/dL Creatinine 0.4 L (0.5-0.9) mg/dL GFR Calculation 180.6 H (90-130) mL/min Glucose 480 H (65-115) mg/dL POC Glucose 453 H (70-110) mg/dL Calculated Osmolal ity 287 (285-295) mOsm/k g Calcium 9.4 (8.5-10.5) mg/dL Total Bilirubin 0.2 (0.15-1.2) mg/dL AST 11 (0-32) U/L ALT 32 (0-33) U/L Alkaline Phosphata se 50 (35-105) IU/L Total Protein 6.9 (6.6-8.7) g/dL Albumin 3.7 (3.5-5.2) g/dL Globulin 3.2 (1.3-4.6) g/dL 07/05/20 07/05/20 Range/Units 02:23 03:07 WBC (4.0-10.0) 10^3/ uL RBC (4.1-5.3) 10^6/u L Hgb (11.5-15.3) g/dL Hct (37.0-47.0) % MCV (81-99) fL MCH (28.0-34.0) pg MCHC (30.0-36.0) g/dL RDW (12.1-15.1) % Plt Count (130-400) 10^3/c mm MPV (7.4-10.4) fL Neut % (Auto) % Lymph % (Auto) % [place] % (Auto) % Eos % (Auto) % Baso % (Auto) % Neut # (Auto) (1.8-7.7) 10^3/u L Lymph # (Auto) (0.8-4.8) 10^3/u L [place] # (Auto) (0.2-0.9) 10^3/u L Eos # (Auto) (0.0-0.8) 10^3/u L Baso # (Auto) (0.0-0.1) 10^3/u L Nucleated RBC % (a uto) % Nucleated RBCs # /100WBC Sodium (136-145) mmol/L Potassium (3.5-5.1) mmol/L Chloride (98-107) mmol/L Carbon Dioxide (22-29) mmol/L Anion Gap (5-19) BUN (6-20) mg/dL Creatinine (0.5-0.9) mg/dL GFR Calculation (90-130) mL/min Glucose (65-115) mg/dL POC Glucose 430 H 387 H (70-110) mg/dL Calculated Osmolal ity (285-295) mOsm/k g Calcium (8.5-10.5) mg/dL Total Bilirubin (0.15-1.2) mg/dL AST (0-32) U/L ALT (0-33) U/L Alkaline Phosphata se (35-105) IU/L Total Protein (6.6-8.7) g/dL Albumin (3.5-5.2) g/dL Globulin (1.3-4.6) g/dL Discharge Plan Discharge Patient Disposition: Home Clinical Impression: Miscarriage, Hyperglycemia Condition: Stable Prescriptions: New Garrett 5-325 mg tablet 1 tab PO Q6H PRN (Reason: pain) Qty: 14 RF: 0 No Action Trulicity 1.5 mg/0.5 mL pen injector 1.5 mg SUBCUT .weekly RF: 0 insulin aspart U-100 [Novolog U-100 Insulin aspart] 100 unit/mL solution 5 unit SUBCUT TID RF: 0 bupropion HCl [Wellbutrin XL] 150 mg tablet extended release 24 hr 150 mg PO QAM RF: 0 escitalopram oxalate [Lexapro] 20 mg tablet 20 mg PO DAILY RF: 0 misoprostol [Cytotec] 200 mcg tablet 600 mcg sublingual Q4H Qty: 12 RF: 0 promethazine 25 mg tablet 25 mg PO Q6H PRN (Reason: nausea and vomiting) Qty: 10 RF: 0 ibuprofen 600 mg tablet 600 mg PO Q6H PRN (Reason: pain) Qty: 30 RF: 0 metformin 500 mg Tablet 1,000 mg PO BID@0630,2200 RF: 0 Levemir U-100 Insulin 100 unit/mL solution 95 unit SUBCUT BID RF: 0 Discharge Orders: Discharge ED (Routine); Ordered 07/05/20 Ordered By: Marisol Benton Referrals: Mark Guy, [Primary Care Provider] - Discharge Diet: Advance as tolerated Discharge Activity: Resume usual activity Patient Instructions: Spontaneous Miscarriage (ED), Diabetic Hyperglycemia (ED) Coding Level of Care Code ED Water Use Inspector for Chg Fwd Exam Comprehensive
[2020-07-05 01:50] VITALS: RESP 17; O2SAT 96
[2020-07-05] MEDS: LORazepam 2 mg/mL INJ 1 mL 1 MG IVP (01:50)
[2020-07-05] MEDS: morphine 4 mg/mL SDV 1 mL IVP (01:50)
[2020-07-05] MEDS: sodium chloride 0.9% 1,000 ML 999 ML IV (01:51)
[2020-07-05 01:56] LABS: Basophils % 0.4 %; Eosinophils # 0.2 10^3/uL (0.0-0.8); Eosinophils % 1.9 %; Hematocrit 38.1 % (37.0-47.0); Lymphocytes # 2.6 10^3/uL (0.8-4.8); Lymphocytes % 26.7 %; Mean Corpuscular HGB Conc 34.1 g/dL (30.0-36.0); Mean Corpuscular Hemoglobin 30.1 pg (28.0-34.0); Mean Corpuscular Volume 88.2 fL (81-99); Mean Platelet Volume 9.6 fL (7.4-10.4); Monocytes # 0.6 10^3/uL (0.2-0.9); Monocytes % 6.6 %; Neutrophils # 6.17 10^3/uL (1.8-7.7); Neutrophils % 64.1 %; Nucleated Red Blood Cells % 0 %; Platelet Count 257 10^3/cmm (130-400); Red Blood Count 4.32 10^6/uL (4.1-5.3); Red Cell Distribution Width 11.7 % (12.1-15.1); White Blood Count 9.6 10^3/uL (4.0-10.0)
[2020-07-05] MEDS: miSOPROStol 200 mcg Tablet 600 MCG PO (01:58)
[2020-07-05 01:59] VITALS: BP 143/90; PULSE 103; RESP 17; O2SAT 94
[2020-07-05 02:20] LABS: Albumin Level 3.7 g/dL (3.5-5.2); Alkaline Phosphatase 50 IU/L (35-105); Anion Gap 18.3 (5-19); Blood Urea Nitrogen 17 mg/dL (6-20); Calcium 9.4 mg/dL (8.5-10.5); Carbon Dioxide 20 mmol/L (22-29); Chloride 93 mmol/L (98-107); Globulin 3.2 g/dL (1.3-4.6); Glomerular Filtration Rate 180.6 mL/min (90-130); Glucose 480 mg/dL (65-115); Osmolality Calculated 287 mOsm/kg (285-295); Potassium 4.3 mmol/L (3.5-5.1); Sodium 127 mmol/L (136-145); Total Bilirubin 0.2 mg/dL (0.15-1.2); Total Protein 6.9 g/dL (6.6-8.7)
[2020-07-05 02:27] LABS: Glucose Point of Care 453 mg/dL (70-110)
[2020-07-05 02:27] LABS: Glucose Point of Care 430 mg/dL (70-110)
[2020-07-05 02:29] VITALS: BP 135/93; PULSE 103; RESP 16; O2SAT 96
[2020-07-05] MEDS: insulin regular-human 100 units/1 mL 6 UNIT IVP (02:34)
[2020-07-05 02:35] LABS: Alanine Aminotransferase 32 U/L (0-33); Aspartate Amino Transferase 11 U/L (0-32)
[2020-07-05 03:10] LABS: Glucose Point of Care 387 mg/dL (70-110)
[2020-07-05 03:31] VITALS: BP 109/94; PULSE 110; RESP 16; TEMP 36.6; O2SAT 96
== END 2020-07-05 03:31 | disposition home or self-care (01) ==
PROVIDERS: Emergency Provider Emergency Medicine; PCP Electrodiagnostic Medicine
DX: O03.9 Complete or unspecified spontaneous abortion without complication (principal); O24.111 Pre-existing type 2 diabetes mellitus, in pregnancy, first trimester; E11.9 Type 2 diabetes mellitus without complications; Z3A.09 9 weeks gestation of pregnancy; Z79.4 Long term (current) use of insulin
CPT/HCPCS: 36416; 80053; 82962; 85025; 96361; 96374; 96375; 99283; J1815; J2060; J2270; J7030

== ENCOUNTER → 2020-07-08 13:35 | Outpatient (BNVA) | payer OTHER, MEDICAID, SELFPAY | PROVIDERS: PCP Electrodiagnostic Medicine; Visit Provider Obstetrics & Gynecology | DX: O02.1 Missed abortion (principal) | CPT/HCPCS: 76830 ==

== ENCOUNTER → 2020-07-19 10:00 | Outpatient (BNVA) | payer OTHER, MEDICAID, SELFPAY | PROVIDERS: PCP Electrodiagnostic Medicine; Visit Provider Obstetrics & Gynecology | DX: Z12.4 Encounter for screening for malignant neoplasm of cervix (principal) | CPT/HCPCS: 88175 ==

== ENCOUNTER 2020-08-22 09:34 | Emergency (ER) | payer OTHER, MEDICAID, SELFPAY ==
[2020-08-22 09:44] VITALS: BP 154/94; PULSE 94; RESP 16; TEMP 36.8; O2SAT 97; BMI 37.9
--- NOTE | 2020-08-22 10:08 | ECG_ITS ---
[facility] Test Date: 2020-08-22 Pat Name: Marcelina Echeverria Department: Room: Gender: Female Fleet Director: : 1985 Requested By: Nehemiah Way Order Number: [id number] Sommer MD: Anastasia Canales M.D. Measurements Intervals [place] Rate: 95 P: 51 GA: 175 QRS: 18 QRSD: 97 T: 29 QT: 382 QTc: 481 Interpretive Statements SINUS RHYTHM INDETERMINATE AXIS POSSIBLE ANTERIOR MYOCARDIAL INFARCTION , PROBABLY OLD [30 ms Q WAVE IN V3/V4, OR R < 0.2 mV IN V4] Compared to ECG 05/09/2020 21:57:55 Indeterminate axis now present Incomplete right bundle-branch block no longer present Myocardial infarct finding still present Electronically Signed On 08-23-2020 12:22:09 CDT by Anastasia Canales M.D. [email or web address]
--- NOTE | 2020-08-22 10:08 | XRR_ITS ---
PROCEDURE INFORMATION: Exam: XR Chest Exam date and time: 08/22/2020 10:18 AM Age: 35 years old Clinical indication: Cough and dyspnea; Patient HX: Bilat kidney pain, high blood sugar; Additional info: Dyspnea/cough TECHNIQUE: Imaging protocol: XR of the chest. Views: 1 view. COMPARISON: CR XR chest 1V portable [id number] 05/09/2020 9:55 PM FINDINGS: Lungs: Unremarkable. No consolidation. Pleural spaces: Unremarkable. No pleural effusion. No pneumothorax. Heart/Mediastinum: Unremarkable. No cardiomegaly. Bones/joints: Unremarkable. XR/XR chest 1V portable [id number] IMPRESSION: No acute findings.
[2020-08-22 10:14] LABS: Glucose Point of Care 513 mg/dL (70-110)
--- NOTE | 2020-08-22 10:15 | W.ED.RECABL ---
HPI - Recheck/Abnormal Lab/Rx General: Chief Complaint: Recheck/Abnormal Lab/Rx Stated Complaint: HIGH BLOOD SUGAR Time Seen by Provider: 08/22/20 09:56 History of Present Illness: HPI narrative: 35-year-old female with a history of insulin-dependent diabetes mellitus blood sugars have been elevated at home greater than 500. She had one just redness high on her Accu-Chek. She does regular Lantus and NovoLog. She did 20 units this morning of NovoLog about 2-1/2 to 3 hours prior to presenting here. She has had polydipsia and polyuria no vomiting. No recent upper respiratory symptoms she has some mild dysuria. MD complaint: abnormal lab Returns today for: other (Elevated blood sugar on Accu-Chek) Associated symptoms: fever Treatments prior to arrival: other (20 units NovoLog) Review of Systems Const: Denies: fever(s), chills, body aches, change in appetite, fatigue or malaise ENMT: Denies: throat pain, ear or mastoid pain, nasal discharge or nasal congestion Card: Denies: chest pain, edema, dyspnea on exertion or orthopnea Resp: Denies: dyspnea, productive cough or non-productive cough GI: Denies: abdominal pain, nausea, vomiting, hematemesis, coffee ground emesis, diarrhea, constipation, bloating, hematochezia or melena : Denies: flank pain, difficulty voiding, dysuria, urinary frequency or urinary urgency Skin/Breast: Denies: rash or pruritus PFSH ED PFSH: Medical History Diabetes type 2 Hypertriglyceridemia No pertinent past medical history neghx: htn,thyroid,dvt/pe PCOS (polycystic ovarian syndrome) Supervision of high-risk Surgical History History of hip surgery (~1996) Pinned due to growth plate slipped History of laparotomy (~06/2001) removal of ovarian cyst and left fallopian tube due to damage - Andrew Family History Grandmother Diabetes Paternal Ovarian cancer Paternal-- dx age 60's Grandfather Diabetes Paternal Mother Hypercholesteremia Denies family history of Colon cancer Heart disease Breast cancer Hypertension Uterine cancer Thyroid disease Stroke Social History Smoking and tobacco status: never smoked Alcohol intake: current Alcohol intake frequency: holidays/special occasions only Desire information about substance/drug rehabilitation?: No Counseling given: No Last substance use date: 05/27/20 Other details last substance use: marijuana Additional social history: - Tobacco use: Never Alcohol use: occasional Drug use: denies Female Reproductive History: Date of last menstrual period: 08/21/20 Physical Exam Const: COMMON NORMALS: no acute distress GENERAL APPEARANCE: cooperative and comfortable ORIENTATION/CONSCIOUSNESS: Yes awake, Yes oriented to person, Yes oriented to place and Yes oriented to time HENMT: COMMON NORMALS: normocephalic, atraumatic and hearing grossly normal bilaterally HEAD & SCALP: normocephalic and atraumatic Neck/C-Spine: COMMON NORMALS: full ROM, no lymphadenopathy, supple and no JVD Resp: COMMON NORMALS: normal respiratory effort, No retractions, No use of accessory muscles and clear to auscultation bilaterally AUSCULTATION: clear to auscultation bilaterally Cardio: COMMON NORMALS: no JVD, regular rate, regular rhythm and No murmurs present (Cardio) RATE: regular rate RHYTHM: regular rhythm GI: COMMON NORMALS: Soft to palpation and No hepatosplenomegaly present AUSCULTATION: Yes normoactive bowel sounds PALPATION: Yes Soft to palpation, No Tenderness to palpation present (GI), No Guarding due to palpation present (GI) and Yes No hepatosplenomegaly present Extremity: COMMON NORMALS: normal to inspection, capillary refill normal, no clubbing, cyanosis or edema, no calf tenderness and no pedal edema Neuro: SENSORIUM/ORIENTATION: Yes oriented to person, Yes oriented to place and Yes oriented to time Skin: COMMON NORMALS: no rashes or lesions noted GENERAL SKIN EXAM: no rashes or lesions noted Course Vital Signs: Vital signs: Vital Signs Temperature 98.2 F 08/22/20 09:44 Pulse Rate 98 08/22/20 12:58 Respiratory Rate 18 08/22/20 12:58 Blood Pressure 151/96 08/22/20 12:58 Pulse Oximetry 96 08/22/20 12:58 MDM - Recheck/Abnormal Lab/Rx MDM Narrative: Medical decision making narrative: Sugars are improved. Reviewed with the patient will discharge home continue to do her sliding scales follow-up with a diary with her doctor later this week return if has problems Lab Data: Labs: Lab Results 08/22/20 08/22/20 08/22/20 Range/Units 10:07 10:08 10:08 WBC 8.3 (4.0-10.0) 10^3/ uL RBC 4.77 (4.1-5.3) 10^6/u L Hgb 14.3 (11.5-15.3) g/dL Hct 42.5 (37.0-47.0) % MCV 89.1 (81-99) fL MCH 30.0 (28.0-34.0) pg MCHC 33.6 (30.0-36.0) g/dL RDW 11.9 L (12.1-15.1) % Plt Count 298 (130-400) 10^3/c mm MPV 9.6 (7.4-10.4) fL Neut % (Auto) 62.4 % Lymph % (Auto) 28.3 % [place] % (Auto) 5.4 % Eos % (Auto) 2.3 % Baso % (Auto) 0.8 % Neut # (Auto) 5.18 (1.8-7.7) 10^3/u L Lymph # (Auto) 2.4 (0.8-4.8) 10^3/u L [place] # (Auto) 0.5 (0.2-0.9) 10^3/u L Eos # (Auto) 0.2 (0.0-0.8) 10^3/u L Baso # (Auto) 0.1 (0.0-0.1) 10^3/u L Nucleated RBC % (a uto) 0 % Nucleated RBCs # 0.0 /100WBC Specimen Type Sample Site ABG pH (7.35-7.45) ABG pCO2 (35-45) mmHg ABG pO2 (80.0-100.0) mmH g ABG HCO3 (22-26) mmol/L ABG O2 Saturation ABG Base Excess (-2.0-2.0) mmol/ L Tr Test A-a O2 Gradient (5-10) mmHg Hematocrit (37-47) % Hgb O2 Saturation (95-100) % Carboxyhemoglobin (0.4-20.1) %THgb Methemoglobin (0.4-1.5) % Total Hemoglobin (12-16) g/dL Ionized Calcium (1.1-1.4) mmol/L O2 Delivery Device FiO2 % Health And Safety Tech ID Sodium 132 L (136-145) mmol/L Potassium 4.8 (3.5-5.1) mmol/L Chloride 98 (98-107) mmol/L Carbon Dioxide 23 (22-29) mmol/L Anion Gap 15.8 (5-19) BUN 20 (6-20) mg/dL Creatinine 0.4 L (0.5-0.9) mg/dL GFR Calculation 180.6 H (90-130) mL/min Glucose 530 H* (65-115) mg/dL POC Glucose 513 H* (70-110) mg/dL Calculated Osmolal ity 301 H (285-295) mOsm/k g Calcium 8.6 (8.5-10.5) mg/dL Total Bilirubin 0.2 (0.15-1.2) mg/dL AST 10 (0-32) U/L ALT 18 (0-33) U/L Alkaline Phosphata se 56 (35-105) IU/L Total Protein 7.1 (6.6-8.7) g/dL Albumin 3.7 (3.5-5.2) g/dL Globulin 3.4 (1.3-4.6) g/dL Lipase 26 (13-60) U/L Urine Color (Yellow) Urine Appearance (CLEAR) Urine pH (5-7) Ur Specific Gravit y (1.005-1.030) Urine Protein (Negative) Urine Glucose (UA) (Normal) Urine Ketones (Negative) Urine Blood (Negative) Urine Nitrate (Negative) Urine Bilirubin (Negative) Urine Urobilinogen (Negative) mg/dL Ur Leukocyte Yasmin ase (Negative) Urine RBC (0-2) /hpf Urine WBC (0-5) /hpf Ur Squamous Epith Cells (0-5) /hpf Amorphous Sediment Urine Bacteria (NONE) /hpf Serum Ketones (Negative) 08/22/20 08/22/20 08/22/20 Range/Units 10:08 10:17 10:28 WBC (4.0-10.0) 10^3/ uL RBC (4.1-5.3) 10^6/u L Hgb (11.5-15.3) g/dL Hct (37.0-47.0) % MCV (81-99) fL MCH (28.0-34.0) pg MCHC (30.0-36.0) g/dL RDW (12.1-15.1) % Plt Count (130-400) 10^3/c mm MPV (7.4-10.4) fL Neut % (Auto) % Lymph % (Auto) % [place] % (Auto) % Eos % (Auto) % Baso % (Auto) % Neut # (Auto) (1.8-7.7) 10^3/u L Lymph # (Auto) (0.8-4.8) 10^3/u L [place] # (Auto) (0.2-0.9) 10^3/u L Eos # (Auto) (0.0-0.8) 10^3/u L Baso # (Auto) (0.0-0.1) 10^3/u L Nucleated RBC % (a uto) % Nucleated RBCs # /100WBC Specimen Type Arterial Sample Site Radial, left ABG pH 7.41 (7.35-7.45) ABG pCO2 36.0 (35-45) mmHg ABG pO2 96.5 (80.0-100.0) mmH g ABG HCO3 22.9 (22-26) mmol/L ABG O2 Saturation 98.1 ABG Base Excess -1.2 (-2.0-2.0) mmol/ L Tr Test Pos A-a O2 Gradient 1.0 L (5-10) mmHg Hematocrit 44.3 (37-47) % Hgb O2 Saturation 96.5 (95-100) % Carboxyhemoglobin 0.6 (0.4-20.1) %THgb Methemoglobin 1.0 (0.4-1.5) % Total Hemoglobin 14.4 (12-16) g/dL Ionized Calcium 1.2 (1.1-1.4) mmol/L O2 Delivery Device Room air FiO2 21.0 % Health And Safety Tech ID glc Sodium 135.0 (136-145) mmol/L Potassium 4.4 (3.5-5.1) mmol/L Chloride (98-107) mmol/L Carbon Dioxide (22-29) mmol/L Anion Gap (5-19) BUN (6-20) mg/dL Creatinine (0.5-0.9) mg/dL GFR Calculation (90-130) mL/min Glucose 461.0 H (65-115) mg/dL POC Glucose (70-110) mg/dL Calculated Osmolal ity (285-295) mOsm/k g Calcium (8.5-10.5) mg/dL Total Bilirubin (0.15-1.2) mg/dL AST (0-32) U/L ALT (0-33) U/L Alkaline Phosphata se (35-105) IU/L Total Protein (6.6-8.7) g/dL Albumin (3.5-5.2) g/dL Globulin (1.3-4.6) g/dL Lipase (13-60) U/L Urine Color Straw (Yellow) Urine Appearance Clear (CLEAR) Urine pH 5 (5-7) Ur Specific Gravit y 1.010 (1.005-1.030) Urine Protein Trace (Negative) Urine Glucose (UA) 4+ H (Normal) Urine Ketones Negative (Negative) Urine Blood 3+ H (Negative) Urine Nitrate Negative (Negative) Urine Bilirubin Neg (Negative) Urine Urobilinogen Norm (Negative) mg/dL Ur Leukocyte Yasmin ase 1+ H (Negative) Urine RBC 5-10 H (0-2) /hpf Urine WBC 5-10 H (0-5) /hpf Ur Squamous Epith Cells 5-10 H (0-5) /hpf Amorphous Sediment Not Reportable Urine Bacteria Trace (NONE) /hpf Serum Ketones Negative (Negative) 08/22/20 08/22/20 Range/Units 11:07 12:16 WBC (4.0-10.0) 10^3/ uL RBC (4.1-5.3) 10^6/u L Hgb (11.5-15.3) g/dL Hct (37.0-47.0) % MCV (81-99) fL MCH (28.0-34.0) pg MCHC (30.0-36.0) g/dL RDW (12.1-15.1) % Plt Count (130-400) 10^3/c mm MPV (7.4-10.4) fL Neut % (Auto) % Lymph % (Auto) % [place] % (Auto) % Eos % (Auto) % Baso % (Auto) % Neut # (Auto) (1.8-7.7) 10^3/u L Lymph # (Auto) (0.8-4.8) 10^3/u L [place] # (Auto) (0.2-0.9) 10^3/u L Eos # (Auto) (0.0-0.8) 10^3/u L Baso # (Auto) (0.0-0.1) 10^3/u L Nucleated RBC % (a uto) % Nucleated RBCs # /100WBC Specimen Type Sample Site ABG pH (7.35-7.45) ABG pCO2 (35-45) mmHg ABG pO2 (80.0-100.0) mmH g ABG HCO3 (22-26) mmol/L ABG O2 Saturation ABG Base Excess (-2.0-2.0) mmol/ L Tr Test A-a O2 Gradient (5-10) mmHg Hematocrit (37-47) % Hgb O2 Saturation (95-100) % Carboxyhemoglobin (0.4-20.1) %THgb Methemoglobin (0.4-1.5) % Total Hemoglobin (12-16) g/dL Ionized Calcium (1.1-1.4) mmol/L O2 Delivery Device FiO2 % Health And Safety Tech ID Sodium (136-145) mmol/L Potassium (3.5-5.1) mmol/L Chloride (98-107) mmol/L Carbon Dioxide (22-29) mmol/L Anion Gap (5-19) BUN (6-20) mg/dL Creatinine (0.5-0.9) mg/dL GFR Calculation (90-130) mL/min Glucose (65-115) mg/dL POC Glucose 353 H 289 H (70-110) mg/dL Calculated Osmolal ity (285-295) mOsm/k g Calcium (8.5-10.5) mg/dL Total Bilirubin (0.15-1.2) mg/dL AST (0-32) U/L ALT (0-33) U/L Alkaline Phosphata se (35-105) IU/L Total Protein (6.6-8.7) g/dL Albumin (3.5-5.2) g/dL Globulin (1.3-4.6) g/dL Lipase (13-60) U/L Urine Color (Yellow) Urine Appearance (CLEAR) Urine pH (5-7) Ur Specific Gravit y (1.005-1.030) Urine Protein (Negative) Urine Glucose (UA) (Normal) Urine Ketones (Negative) Urine Blood (Negative) Urine Nitrate (Negative) Urine Bilirubin (Negative) Urine Urobilinogen (Negative) mg/dL Ur Leukocyte Yasmin ase (Negative) Urine RBC (0-2) /hpf Urine WBC (0-5) /hpf Ur Squamous Epith Cells (0-5) /hpf Amorphous Sediment Urine Bacteria (NONE) /hpf Serum Ketones (Negative) Discharge Plan Discharge Patient Disposition: Home Clinical Impression: Hyperglycemia, Diabetes mellitus Condition: Stable Prescriptions: No Action Trulicity 1.5 mg/0.5 mL pen injector 1.5 mg SUBCUT .weekly RF: 0 insulin aspart U-100 [Novolog U-100 Insulin aspart] 100 unit/mL solution 5 unit SUBCUT TID RF: 0 metformin 500 mg Tablet 1,000 mg PO BID@0630,2200 RF: 0 Levemir U-100 Insulin 100 unit/mL solution 95 unit SUBCUT BID@0630,2200 RF: 0 metoprolol succinate 25 mg tablet extended release 24 hr 25 mg PO DAILY@2200 RF: 0 1 tab PO DAILY@0630 RF: 0 iron 1 tab PO DAILY@0630 RF: 0 Discharge Orders: Discharge ED (Routine); Ordered 08/22/20 Ordered By: Nehemiah Marin Referrals: Mark Guy DO [Primary Care Provider] - Discharge Diet: Usual diet Discharge Activity: Resume usual activity Patient Instructions: Opioid Safety Activity Restrictions/Additional Instructions: Blood sugars regularly throughout the day use sliding scale insulin to control follow-up with your primary care doctor in the next few days return if you have further problems. Coding Level of Care Code ED Ear Nose Throat Physician for [place] Fwd Exam Comprehensive
[2020-08-22 10:16] LABS: Basophils # 0.1 10^3/uL (0.0-0.1); Basophils % 0.8 %; Eosinophils # 0.2 10^3/uL (0.0-0.8); Eosinophils % 2.3 %; Hematocrit 42.5 % (37.0-47.0); Hemoglobin 14.3 g/dL (11.5-15.3); Lymphocytes # 2.4 10^3/uL (0.8-4.8); Lymphocytes % 28.3 %; Mean Corpuscular HGB Conc 33.6 g/dL (30.0-36.0); Mean Corpuscular Volume 89.1 fL (81-99); Mean Platelet Volume 9.6 fL (7.4-10.4); Monocytes # 0.5 10^3/uL (0.2-0.9); Monocytes % 5.4 %; Neutrophils # 5.18 10^3/uL (1.8-7.7); Neutrophils % 62.4 %; Nucleated Red Blood Cells % 0 %; Platelet Count 298 10^3/cmm (130-400); Red Blood Count 4.77 10^6/uL (4.1-5.3); Red Cell Distribution Width 11.9 % (12.1-15.1); White Blood Count 8.3 10^3/uL (4.0-10.0)
[2020-08-22 10:27] LABS: Ketone (Acetest) Serum Negative (Negative)
[2020-08-22] MEDS: sodium chloride 0.9% 1,000 ML 999 ML IV ×2 (10:29→11:22)
[2020-08-22] MEDS: insulin regular-human 100 units/1 mL 15 UNIT IVP (10:31)
[2020-08-22 10:34] LABS: Alanine Aminotransferase 18 U/L (0-33); Albumin Level 3.7 g/dL (3.5-5.2); Alkaline Phosphatase 56 IU/L (35-105); Anion Gap 15.8 (5-19); Aspartate Amino Transferase 10 U/L (0-32); Blood Urea Nitrogen 20 mg/dL (6-20); Calcium 8.6 mg/dL (8.5-10.5); Carbon Dioxide 23 mmol/L (22-29); Chloride 98 mmol/L (98-107); Globulin 3.4 g/dL (1.3-4.6); Glomerular Filtration Rate 180.6 mL/min (90-130); Lipase 26 U/L (13-60); Osmolality Calculated 301 mOsm/kg (285-295); Potassium 4.8 mmol/L (3.5-5.1); Sodium 132 mmol/L (136-145); Total Bilirubin 0.2 mg/dL (0.15-1.2); Total Protein 7.1 g/dL (6.6-8.7)
[2020-08-22 10:35] LABS: Glucose 530 mg/dL (65-115)
[2020-08-22] MEDS: ondansetron 2 mg/ML SDV 2 mL 4 MG IVP (10:36)
[2020-08-22 10:40] LABS: ABG PH Result 7.41 (7.35-7.45); Arterial Blood Gas Hematocrit 44.3 % (37-47); Base Excess ABG -1.2 mmol/L (-2.0-2.0); Blood Gas Allen Test Pos; Blood Gas Operator Identificat glc; Blood Gas Sample Site Radial, left; Blood Gas Sample Type Arterial; Carboxyhemoglobin 0.6 %THgb (0.4-20.1); HCO3 ABG 22.9 mmol/L (22-26); HGB O2 Sat 96.5 % (95-100); Ionized Calcium Level - ABG 1.2 mmol/L (1.1-1.4); Oxygen Device ROOM AIR; Oxygen Saturation ABG 98.1; PO2 ABG 96.5 mmHg (80.0-100.0); Potassium Level - ABG 4.4 mmol/L (3.5-5.0); Total Hemoglobin 14.4 g/dL (12-16)
[2020-08-22 10:46] LABS: Bilirubin Urine Neg (Negative); Blood Urine 3+ (Negative); Glucose Urine UA 4+ (Normal); Ketones Urine Negative (Negative); Nitrate Urine Negative (Negative); Protein Urine Trace (Negative); Urine Appearance Clear (CLEAR); Urine Color Straw (Yellow); Urobilinogen Urine Norm (Negative); pH Urine 5 (5-7)
[2020-08-22 10:47] LABS: Add Urine Culture? Yes; Add Urine Microscopic? YES; Bacteria Urine TRACE /hpf; Leukocyte Esterase Urine 1+ (Negative)
[2020-08-22] MEDS: insulin regular-human 100 units/1 mL 20 UNIT IVP (11:14)
[2020-08-22 12:09] LABS: Glucose Point of Care 353 mg/dL (70-110)
[2020-08-22 12:20] LABS: Glucose Point of Care 289 mg/dL (70-110)
[2020-08-22 12:39] VITALS: BP 151/96; PULSE 98; RESP 18; O2SAT 96
[2020-08-22 12:58] VITALS: BP 151/96; PULSE 98; RESP 18; O2SAT 96
== END 2020-08-22 13:00 | disposition home or self-care (01) ==
PROVIDERS: Emergency Provider Family Medicine; PCP Electrodiagnostic Medicine
DX: E11.65 Type 2 diabetes mellitus with hyperglycemia (principal); Z79.4 Long term (current) use of insulin
CPT/HCPCS: 36416; 36600; 71045; 80051; 80053; 81001; 82009; 82330; 82805; 82962; 83690; 85025; 87086; 93005; 96361; 96374; 96375; 96376; 99284; J1815; J2405; J7030

== ENCOUNTER 2020-09-24 03:57 | Emergency (ER) | payer OTHER, MEDICAID, SELFPAY ==
[2020-09-24 04:00] VITALS: BP 177/94; PULSE 88; RESP 14; TEMP 36.6; O2SAT 98; BMI 40.8
--- NOTE | 2020-09-24 04:03 | CTR_ITS ---
PROCEDURE INFORMATION: Exam: CT Head Without Contrast Exam date and time: 09/24/2020 4:04 AM Age: 35 years old Clinical indication: Altered mental status/memory loss; Confusion or disorientation; Patient HX: AMS. Hypoglycemic. TECHNIQUE: Imaging protocol: Computed tomography of the head without contrast. Radiation optimization: All CT scans at this facility use at least one of these dose optimization techniques: automated exposure control; mA and/or kV adjustment per patient size (includes targeted exams where dose is matched to clinical indication); or iterative reconstruction. COMPARISON: No relevant prior studies available. RADIATION DOSE METRICS: Total DLP (mGy-cm): 864.05 FINDINGS: Brain: No acute infarct or hemorrhage. Cerebral ventricles: No ventriculomegaly. Bones/joints: No calvarial or skull base fracture. Paranasal sinuses: Paranasal sinuses are clear. No air-fluid level. Mastoid air cells: Visualized mastoid air cells are clear. Soft tissues: Unremarkable. CT/CT head wo con* [id number] IMPRESSION: 1. No acute infarct or hemorrhage. 2. No calvarial or skull base fracture. Radiation Dose CTDIVOL = (mGy): DLP = 864.05 (mGy-cm)
--- NOTE | 2020-09-24 04:03 | ECG_ITS ---
[facility] Test Date: 2020-09-24 Pat Name: Marcelina Echeverria Department: Room: Gender: Female Cv Tech: : 1985 Requested By: Marisol Benton Order Number: [id number] Sommer MD: Dallin Carroll M.D. Measurements Intervals [place] Rate: 77 P: 10 CA: 182 QRS: 87 QRSD: 103 T: 26 QT: 431 QTc: 488 Interpretive Statements SINUS RHYTHM Compared to ECG 08/22/2020 10:21:46 Indeterminate axis no longer present Myocardial infarct finding no longer present Electronically Signed On 09-24-2020 16:48:45 CDT by Dallin Carroll M.D. [id number]
--- NOTE | 2020-09-24 04:03 | XRR_ITS ---
PROCEDURE INFORMATION: Exam: XR Chest Exam date and time: 09/24/2020 4:04 AM Age: 35 years old Clinical indication: Patient HX: AMS. Hypoglycemic. TECHNIQUE: Imaging protocol: XR of the chest. Views: 1 view. COMPARISON: CR XR chest 1V portable [id number] 08/22/2020 10:14 AM FINDINGS: Lungs: Unremarkable. No consolidation. Pleural spaces: Unremarkable. No pleural effusion. No pneumothorax. Heart/Mediastinum: Unremarkable. No cardiomegaly. Bones/joints: Unremarkable. XR/XR chest 1V portable [id number] IMPRESSION: No acute findings.
[2020-09-24 04:07] VITALS: PULSE 91; RESP 18; O2SAT 98
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
[2020-09-24 04:17] LABS: Basophils # 0.1 10^3/uL (0.0-0.1); Basophils % 0.9 %; Eosinophils # 0.3 10^3/uL (0.0-0.8); Eosinophils % 2.5 %; Hematocrit 44.2 % (37.0-47.0); Hemoglobin 14.9 g/dL (11.5-15.3); Lymphocytes # 3.8 10^3/uL (0.8-4.8); Mean Corpuscular HGB Conc 33.7 g/dL (30.0-36.0); Mean Corpuscular Hemoglobin 29.5 pg (28.0-34.0); Mean Corpuscular Volume 87.5 fL (81-99); Mean Platelet Volume 9.9 fL (7.4-10.4); Monocytes # 0.8 10^3/uL (0.2-0.9); Monocytes % 8.2 %; Neutrophils # 5.18 10^3/uL (1.8-7.7); Neutrophils % 50.8 %; Nucleated Red Blood Cells % 0 %; Platelet Count 341 10^3/cmm (130-400); Red Blood Count 5.05 10^6/uL (4.1-5.3); Red Cell Distribution Width 11.9 % (12.1-15.1); White Blood Count 10.2 10^3/uL (4.0-10.0)
[2020-09-24 04:45] LABS: Albumin Level 3.7 g/dL (3.5-5.2); Alkaline Phosphatase 48 IU/L (35-105); Anion Gap 13.3 (5-19); Aspartate Amino Transferase 16 U/L (0-32); Blood Urea Nitrogen 13 mg/dL (6-20); Calcium 8.6 mg/dL (8.5-10.5); Carbon Dioxide 26 mmol/L (22-29); Chloride 104 mmol/L (98-107); Globulin 3.6 g/dL (1.3-4.6); Glomerular Filtration Rate 251.7 mL/min (90-130); Glucose 69 mg/dL (65-115); Osmolality Calculated 288 mOsm/kg (285-295); Potassium 3.3 mmol/L (3.5-5.1); Sodium 140 mmol/L (136-145); Thyroid Stimulating Hormone 1.19 uIU/mL (0.27-4.20); Total Bilirubin 0.2 mg/dL (0.15-1.2); Total Protein 7.3 g/dL (6.6-8.7)
[2020-09-24 04:47] LABS: Acetaminophen < 5.0 ug/mL (10-30); Salicylate < 0.3 mg/dL (3-10)
[2020-09-24 04:49] VITALS: BP 151/83; PULSE 73; RESP 22; O2SAT 96
[2020-09-24 04:58] LABS: Alanine Aminotransferase 17 U/L (0-33)
[2020-09-24 05:19] VITALS: BP 160/96; PULSE 83; RESP 16; O2SAT 97
[2020-09-24 05:26] LABS: Alcohol Level < 10 mg/dL (0-10)
[2020-09-24 05:32] LABS: HCG Qualitative Urine. Negative (Negative)
[2020-09-24 05:42] LABS: Amphetamines Screen Urine Negative (Negative); Barbiturates Screen Urine Negative (Negative); Benzodiazepines Screen Urine Negative (Negative); Cocaine Screen Urine Negative (Negative); Opiate Screen Urine Negative (Negative); PCP Screen Urine Negative (Negative); THC Screen Urine Negative (Negative)
[2020-09-24 05:51] VITALS: BP 173/91; PULSE 76; RESP 18; O2SAT 98
[2020-09-24 23:46] LABS: Glucose Point of Care 140 mg/dL (70-110)
[2020-09-24 23:46] LABS: Glucose Point of Care 157 mg/dL (70-110)
== END 2020-09-24 05:53 | disposition home or self-care (01) ==
PROVIDERS: Emergency Provider Emergency Medicine
DX: E11.649 Type 2 diabetes mellitus with hypoglycemia without coma (principal); Z79.4 Long term (current) use of insulin
CPT/HCPCS: 36416; 70450; 71045; 80053; 80306; 80307; 81025; 82962; 84443; 85025; 93005; 99284

== ENCOUNTER 2020-10-03 13:04 | Emergency (ER) | payer OTHER, MEDICAID, SELFPAY ==
[2020-10-03 13:15] VITALS: BP 167/109; PULSE 105; RESP 14; TEMP 37; O2SAT 98; BMI 40.6
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
[2020-10-03 14:21] VITALS: RESP 15
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
[2020-10-03] MEDS: ketorolac 60 mg/2 mL INJ IM (15:48)
== END 2020-10-03 15:48 | disposition home or self-care (01) ==
PROVIDERS: Emergency Provider Physician Assistant
DX: S93.402A Sprain of unspecified ligament of left ankle, initial encounter (principal); S96.912A Strain of unspecified muscle and tendon at ankle and foot level, left foot, initial encounter; Z79.4 Long term (current) use of insulin; E11.9 Type 2 diabetes mellitus without complications; V86.95XA Unspecified occupant of 3- or 4- wheeled all-terrain vehicle (ATV) injured in nontraffic accident, initial encounter
CPT/HCPCS: 73610; 73630; 96372; 99283; J1885

== ENCOUNTER → 2020-11-24 13:51 | Outpatient (BNVA) | payer OTHER, MEDICAID, SELFPAY | PROVIDERS: Visit Provider Nurse Practitioner Women's Health | DX: N91.2 Amenorrhea, unspecified (principal); N92.6 Irregular menstruation, unspecified | CPT/HCPCS: 81025; 84702 ==

== ENCOUNTER 2021-01-06 22:34 | Emergency (ER) | payer OTHER, MEDICAID, SELFPAY ==
[2021-01-06 23:01] VITALS: BP 132/83; PULSE 109; RESP 18; TEMP 36.9; O2SAT 93; BMI 40.3
[2021-01-06 23:28] VITALS: RESP 18; TEMP 36.9; O2SAT 93
== END 2021-01-06 23:25 | disposition left against medical advice (07) ==
LOC: ER 23:00
PROVIDERS: Emergency Provider Family Medicine; PCP Family Medicine
DX: Z53.21 Procedure and treatment not carried out due to patient leaving prior to being seen by health care provider (principal)
CPT/HCPCS: 99281

== ENCOUNTER 2021-01-29 14:37 | Emergency (ER) | payer OTHER, MEDICAID, SELFPAY ==
[2021-01-29 14:53] VITALS: PULSE 74; RESP 18; TEMP 36.4; O2SAT 97; BMI 40.3
--- NOTE | 2021-01-29 14:57 | W.ED.HA ---
Documented by User: Aishwarya Del Angel PA-C 01/29/21 16:08 HPI - Headache General: Chief Complaint: Headache Stated Complaint: headache, dizzy Time Seen by Provider: 01/29/21 14:56 Source: patient Mode of arrival: ambulatory Limitations: no limitations History of Present Illness: HPI Narrative: 36-year-old female presents to the ER today for headache and dizziness. Patient reports she has a relatively recent history of elevated blood pressures and her PCP has been trying to treat the blood pressure with different medications. Patient was started on lisinopril 1 week ago in addition to the metoprolol she was already on. Patient reports 2 days ago she developed a headache which has continued and this a.m. she had dizziness associated with a headache. She reports light and sound sensitivity. Patient reports some nausea also. Patient has a history of migraines but has not had one in years. Patient reports her blood pressure has remained high despite the medication changes. She has been logging it and it runs anywhere from 140-180/90-100. Patient reports any other symptoms at this time. Patient denies any recent illnesses. Patient denies ear pain, runny nose, congestion, sore throat, chest pain, shortness of breath, vomiting, diarrhea, constipation. MD elicited complaint: headache Pertinent past history: migraines and hypertension Onset (ago): day(s) (2) Onset description: gradually Location: frontal, temporal and diffuse Severity: severe Pain scale (0-10): 9 Quality & Timing: throbbing and sharp Relieving factors: nothing Associated symptoms: Reports nausea; Deny chest pain, fever(s), rash or vomiting Review of Systems Const: Denies: fever(s), chills or fatigue Eyes: Reports: photophobia; Denies: change in vision or blurry vision ENMT: Denies: throat pain, nasal discharge or nasal congestion Card: Denies: chest pain or palpitations Resp: Denies: dyspnea, productive cough or wheezing GI: Reports: nausea; Denies: abdominal pain, vomiting, diarrhea or constipation Musc: Denies: neck pain or back pain Skin/Breast: Denies: rash Neuro: Reports: headache(s) and dizziness PFS ED PFSH: Medical History Diabetes type 2 Hypertriglyceridemia No pertinent past medical history neghx: htn,thyroid,dvt/pe PCOS (polycystic ovarian syndrome) Supervision of high-risk Surgical History History of hip surgery (~1996) Pinned due to growth plate slipped History of laparotomy (~06/2001) removal of ovarian cyst and left fallopian tube due to damage - Andrew Family History Grandmother Diabetes Paternal Ovarian cancer Paternal-- dx age 60's Grandfather Diabetes Paternal Mother Hypercholesteremia Denies family history of Colon cancer Heart disease Breast cancer Hypertension Uterine cancer Thyroid disease Stroke Social History Smoking and tobacco status: never smoked Alcohol intake: current Alcohol intake frequency: holidays/special occasions only Desire information about substance/drug rehabilitation?: No Counseling given: No Last substance use date: 05/27/20 Other details last substance use: marijuana Additional social history: - Tobacco use: Never Alcohol use: occasional Drug use: denies Female Reproductive History: Date of last menstrual period: 12/04/20 Physical Exam Const: COMMON NORMALS: patient oriented x3, no limitations, healthy appearing and alert; apparent distress GENERAL APPEARANCE: well kempt; not comfortable NUTRITIONAL APPEARANCE: obese HENMT: COMMON NORMALS: normocephalic, atraumatic and Normal external nose present HEAD & SCALP: normocephalic and atraumatic FACE & SINUS: sinuses nontender NOSE: Normal external nose present MOUTH: Normal oral and palatal mucosa present THROAT: posterior oropharynx normal Lymph: LYMPHATIC: no lymphadenopathy noted Resp: COMMON NORMALS: normal respiratory effort and No retractions EFFORT & INSPECTION: Yes able to speak in complete sentences Cardio: COMMON NORMALS: regular rate, regular rhythm and No murmurs present (Cardio) RATE: regular rate RHYTHM: regular rhythm GI: COMMON NORMALS: Normal to inspection, nondistended, normoactive bowel sounds present, Soft to palpation and non-tender PALPATION: Yes Soft to palpation : COMMON NORMALS: Yes no CVA tenderness BLADDER/KIDNEY EXAM: Yes no CVA tenderness Back/Pelvis: COMMON NORMALS: no CVA tenderness and thoracic and lumbar spine normal to inspection Extremity: COMMON NORMALS: normal to inspection and full ROM Neuro: COMMON NORMALS: patient oriented x3, CN's II-XII intact bilaterally, moves all extremities and no focal motor deficits SENSORIUM/ORIENTATION: Yes alert GAIT: Yes Normal gait present Psych: COMMON NORMALS: mental status grossly normal and Normal thought process present APPEARANCE: Yes well kempt THOUGHT PROCESS: Normal thought process present Skin: COMMON NORMALS: no rashes or lesions noted GENERAL SKIN EXAM: no rashes or lesions noted Course ED course: Patient has a history of migraines however has not had one for years. She recently started lisinopril when this started. Patient is experiencing some dizziness associated with a headache at this time. We will do fluids and medications to help with the migraine. We will also attempt to lower blood pressure some as it is approximately 180/100 at this time. We will try clonidine 0.1 mg. Reevaluation(s): Reevaluation #1: Patient reports headache has improved some as blood pressures come down. Her blood sugars are dropping however at this point so patient given some snacks. Time: 15:46 Reevaluation #2: Blood pressure is down to 145/85. Patient's headache has mostly resolved she is just now very sleepy. Patient feels she is ready to go home. Time: 15:59 Vital Signs: Vital signs: Vital Signs Temperature 98 F 01/29/21 16:38 Pulse Rate 70 01/29/21 16:38 Respiratory Rate 16 01/29/21 16:38 Blood Pressure 119/74 01/29/21 16:38 Pulse Oximetry 98 01/29/21 16:38 MDM - Headache MDM Narrative: Medical decision making narrative: Patient presents to the ER today for elevated blood pressure and headache/dizziness. She has started a new medication, lisinopril, for elevated blood pressures. It was after starting this medication that her migraine started which she has not had an issue with for years. We will stop lisinopril at this time. Patient given clonidine in the ER and blood pressure significantly improved to 145/85. We will send patient home with clonidine twice daily to be used as needed for elevated blood pressures. Patient to follow-up with her PCP in 2 to 3 days to discuss medication management of her blood pressure. Patient reports an improvement in her headache while in the ER. Recommend patient go home and rest and increase her fluid intake. Return to the ER with any new or worsening symptoms. Lab Data: Labs: Lab Results 01/29/21 14:57 POC Glucose 98 mg/dL mg/dL (70-110) Critical Care Time Critical Care Time: Critical Care Time: No Discharge Plan Discharge Patient Disposition: Home Clinical Impression: Hypertensive urgency Headache Qualifiers: Headache type: unspecified Headache chronicity pattern: acute headache Intractability: intractable Qualified Code(s): R51.9 - Headache, unspecified Condition: Stable Prescriptions: New clonidine HCl 0.1 mg tablet 0.1 mg PO BID PRN (Reason: elevated blood pressure) Qty: 14 RF: 0 No Action folic acid 1 mg tablet See Rx Instructions PO DAILY RF: 0 Humulin R U-500 (Conc) Kwikpen 500 unit/mL (3 mL) insulin pen See Rx Instructions SUBCUT QAM Qty: 6 RF: 3 metformin 500 mg Tablet 1,000 mg PO BID@0630,2200 RF: 0 metoprolol succinate 25 mg tablet extended release 24 hr 50 mg PO DAILY@2200 RF: 0 1 tab PO DAILY@0630 RF: 0 atorvastatin 20 mg PO DAILY RF: 0 Discharge Orders: Discharge ED (Routine); Ordered 01/29/21 Ordered By: Aishwarya Del Angel Referrals: Tammy Cruz DO [Primary Care Provider] - Discharge Diet: Diabetic Discharge Activity: Resume usual activity Patient Instructions: Opioid Safety Activity Restrictions/Additional Instructions: Stop lisinopril and take clonidine as instructed. Increase fluid intake. Take Zofran as needed for nausea. Follow-up with PCP in 2 to 3 days. Return to the ER with any new or worsening symptoms. Coding Level of Care Code ED Director Talent for Chg Fwd Exam Comprehensive Documented by User: Jolene Eduardo MD 02/01/21 04:43 HPI - Headache General: Chief Complaint: Headache Stated Complaint: headache, dizzy Time Seen by Provider: 01/29/21 14:56 PFSH ED PFSH: Medical History Diabetes type 2 Hypertriglyceridemia No pertinent past medical history neghx: htn,thyroid,dvt/pe PCOS (polycystic ovarian syndrome) Supervision of high-risk Surgical History History of hip surgery (~1996) Pinned due to growth plate slipped History of laparotomy (~06/2001) removal of ovarian cyst and left fallopian tube due to damage - Andrew Family History Grandmother Diabetes Paternal Ovarian cancer Paternal-- dx age 60's Grandfather Diabetes Paternal Mother Hypercholesteremia Denies family history of Colon cancer Heart disease Breast cancer Hypertension Uterine cancer Thyroid disease Stroke Social History Smoking and tobacco status: never smoked Alcohol intake: current Alcohol intake frequency: holidays/special occasions only Desire information about substance/drug rehabilitation?: No Counseling given: No Last substance use date: 05/27/20 Other details last substance use: marijuana Additional social history: - Tobacco use: Never Alcohol use: occasional Drug use: denies Course Vital Signs: Vital signs: Vital Signs Temperature 98 F 01/29/21 16:38 Pulse Rate 70 01/29/21 16:38 Respiratory Rate 16 01/29/21 16:38 Blood Pressure 119/74 01/29/21 16:38 Pulse Oximetry 98 01/29/21 16:38 MDM - Headache Lab Data: Labs: Lab Results 01/29/21 14:57 POC Glucose 98 mg/dL mg/dL (70-110) Discharge Plan Discharge Patient Disposition: Home Clinical Impression: Hypertensive urgency Headache Qualifiers: Headache type: unspecified Headache chronicity pattern: acute headache Intractability: intractable Qualified Code(s): R51.9 - Headache, unspecified Condition: Stable Prescriptions: New clonidine HCl 0.1 mg tablet 0.1 mg PO BID PRN (Reason: elevated blood pressure) Qty: 14 RF: 0 No Action folic acid 1 mg tablet See Rx Instructions PO DAILY RF: 0 Humulin R U-500 (Conc) Kwikpen 500 unit/mL (3 mL) insulin pen See Rx Instructions SUBCUT QAM Qty: 6 RF: 3 metformin 500 mg Tablet 1,000 mg PO BID@0630,2200 RF: 0 metoprolol succinate 25 mg tablet extended release 24 hr 50 mg PO DAILY@2200 RF: 0 1 tab PO DAILY@0630 RF: 0 atorvastatin 20 mg PO DAILY RF: 0 Discharge Orders: Discharge ED (Routine); Ordered 01/29/21 Ordered By: Aishwarya Del Angel Referrals: Tammy Cruz DO [Primary Care Provider] - Discharge Diet: Diabetic Discharge Activity: Resume usual activity Patient Instructions: Opioid Safety Activity Restrictions/Additional Instructions: Stop lisinopril and take clonidine as instructed. Increase fluid intake. Take Zofran as needed for nausea. Follow-up with PCP in 2 to 3 days. Return to the ER with any new or worsening symptoms. Coding Level of Care Code ED Director Talent for [facility]arg[facility] Exam Comprehensive
[2021-01-29 15:00] VITALS: BP 167/109; PULSE 81; RESP 18; TEMP 36.6; O2SAT 97
[2021-01-29 15:01] LABS: Glucose Point of Care 98 mg/dL (70-110)
[2021-01-29 15:21] VITALS: BP 156/87; PULSE 72
[2021-01-29] MEDS: ondansetron 2 mg/ML SDV 2 mL 4 MG IVP (15:21)
[2021-01-29] MEDS: sodium chloride 0.9% 1,000 ML 999 ML IV (15:21)
[2021-01-29] MEDS: diphenhydrAMINE 50 mg/mL SDV 1mL 25 MG IVP (15:25)
[2021-01-29 15:26] VITALS: BP 156/87
[2021-01-29] MEDS: cloNIDine 0.1 mg Tablet PO (15:26)
[2021-01-29] MEDS: ketorolac 30 mg/mL INJ 15 MG IVP (15:26)
[2021-01-29 16:37] VITALS: BP 116/78; PULSE 68; RESP 16; O2SAT 99
[2021-01-29 16:38] VITALS: BP 119/74; PULSE 70; RESP 16; TEMP 36.6; O2SAT 98
== END 2021-01-29 16:46 | disposition home or self-care (01) ==
PROVIDERS: Emergency Provider Physician Assistant; PCP Family Medicine
DX: R51.9 Headache, unspecified (principal); I16.0 Hypertensive urgency; Z79.4 Long term (current) use of insulin; E11.9 Type 2 diabetes mellitus without complications
CPT/HCPCS: 36416; 82962; 96361; 96374; 96375; 99284; J1200; J1885; J2405; J7030

== ENCOUNTER → 2021-02-27 14:22 | Outpatient (BNVA) | payer OTHER, MEDICAID, SELFPAY | PROVIDERS: PCP Family Medicine; Visit Provider Obstetrics & Gynecology | DX: E11.9 Type 2 diabetes mellitus without complications (principal); N92.6 Irregular menstruation, unspecified | CPT/HCPCS: 83525; 84702 ==

== ENCOUNTER → 2021-03-09 08:47 | Outpatient (BNVA) | payer OTHER, MEDICAID, SELFPAY | PROVIDERS: PCP Family Medicine; Visit Provider Nurse Practitioner Women's Health | DX: N91.5 Oligomenorrhea, unspecified (principal); N85.2 Hypertrophy of uterus | CPT/HCPCS: 76830 ==

== ENCOUNTER → 2021-03-21 12:46 | Outpatient (BNVA) | payer OTHER, MEDICAID, SELFPAY | PROVIDERS: PCP Family Medicine; Referring Provider Registered Nurse; Visit Provider Specialist | DX: G56.03 Carpal tunnel syndrome, bilateral upper limbs (principal); R20.0 Anesthesia of skin; R20.2 Paresthesia of skin | CPT/HCPCS: 95910 ==

== ENCOUNTER 2021-04-23 14:19 | Emergency (ER) | payer OTHER, SELFPAY ==
[2021-04-23 14:32] VITALS: BP 166/91; PULSE 100; RESP 18; TEMP 36.5; O2SAT 96; BMI 40.3
[2021-04-23 18:19] VITALS: BP 181/115; PULSE 106; RESP 18; O2SAT 96
--- NOTE | 2021-04-23 18:33 | W.ED.GENADLT ---
HPI - General Adult General: Chief complaint: General Medical Stated complaint: R EYE BLURRY SPOTS & PAIN Time Seen by Provider: 04/23/21 17:51 History of Present Illness: HPI narrative: 36-year-old female with a history of hypertension and diabetes. She presents with blurry vision to her left eye for over 24 hours. Today it seems worse. She has some color vision to the left eye, but it is quite blurry for her and she sees spots . She has minimal pain to the left eye. She does have retrobulbar pain to the right eye. Her vision to the right eye, though, is clear. No other symptoms besides a mild headache. Associated symptoms: Reports headache(s); Deny chest pain or dyspnea Review of Systems Const: Denies: fever(s) or chills Eyes: Reports: change in vision, blurry vision, blind spots and eye discomfort; Denies: eye discharge or eye redness Card: Denies: chest pain Resp: Denies: dyspnea Neuro: Reports: headache(s); Denies: numbness in extremities or weakness in extremities PFSH ED PFSH: Medical History Diabetes type 2 Hypertriglyceridemia No pertinent past medical history neghx: htn,thyroid,dvt/pe PCOS (polycystic ovarian syndrome) Supervision of high-risk Surgical History History of hip surgery (~1996) Pinned due to growth plate slipped History of laparotomy (~06/2001) removal of ovarian cyst and left fallopian tube due to damage - Andrew Family History Grandmother Diabetes Paternal Ovarian cancer Paternal-- dx age 60's Grandfather Diabetes Paternal Mother Hypercholesteremia Denies family history of Colon cancer Heart disease Breast cancer Hypertension Uterine cancer Thyroid disease Stroke Social History Smoking and tobacco status: never smoked Alcohol intake: current Alcohol intake frequency: holidays/special occasions only Desire information about substance/drug rehabilitation?: No Counseling given: No Last substance use date: 05/27/20 Other details last substance use: marijuana Additional social history: - Tobacco use: Never Alcohol use: occasional Drug use: denies Female Reproductive History: Date of last menstrual period: 12/04/20 Physical Exam Const: COMMON NORMALS: no acute distress, patient oriented x3 and alert GENERAL APPEARANCE: cooperative HENMT: COMMON NORMALS: normocephalic, atraumatic, Normal external nose present and Normal nasal mucous membranes and turbinates present HEAD & SCALP: normocephalic and atraumatic NOSE: Normal external nose present and Normal nasal mucous membranes and turbinates present Eye: COMMON NORMALS: Equal, round and reactive pupils present, EOMs intact bilaterally and conjunctivae normal VISUAL ACUITY: Yes visual acuity right eye Visual acuity (R) = 20/: 25 and Yes visual acuity left eye (Could see the E ) Visual acuity (L) = 20/: 100 VISUAL IYER: No left visual field cut and No right visual field cut ALIGNMENT: Yes alignment normal EYELID: eyelids normal CONJUNCTIVA: Yes conjunctivae normal SCLERA: sclerae normal PUPIL: Yes Equal, round and reactive pupils present Neuro: COMMON NORMALS: patient oriented x3 SENSORIUM/ORIENTATION: Yes alert Course Consultations: Consultation #1: Billie Time: 20:24 Vital Signs: Vital signs: Vital Signs Temperature 97.7 F 04/23/21 14:32 Pulse Rate 106 H 04/23/21 18:19 Respiratory Rate 18 04/23/21 18:19 Blood Pressure 181/115 04/23/21 18:19 Pulse Oximetry 96 04/23/21 18:19 MDM - General Adult MDM Narrative: Medical decision making narrative: Funduscopic exam does not reveal any significant abnormality. Intraocular pressures are 23 on the right [address] of the orbits with IV contrast does not reveal a retinal detachment. Left eye visual acuity is significantly reduced. This is at least 12, more like 20 hours old. Spoke with ophthalmology on-call. In the differential, we would include retinal vein clot, retinal artery occlusion, and optic neuritis from a demyelinating process like MS, etc. No intervention tonight would be likely to have a drastic outcome compared to being seen tomorrow. She will be seen tomorrow by them in ophthalmology clinic. We are faxing a facesheet to the clinic, and they are aware they need to see her. Instructed on the importance of following up tomorrow in ophthalmology clinic. Discharge Plan Discharge Patient Disposition: Home Clinical Impression: Acute visual loss Qualifiers: Laterality: left Qualified Code(s): H53.132 - Sudden visual loss, left eye Condition: Stable Prescriptions: No Action folic acid 1 mg tablet See Rx Instructions PO DAILY RF: 0 clonidine HCl 0.1 mg tablet 0.1 mg PO TID RF: 0 lisinopril 20 mg tablet 20 mg PO BID RF: 0 Humulin R U-500 (Conc) Kwikpen 500 unit/mL (3 mL) insulin pen See Rx Instructions SUBCUT QAM Qty: 18 RF: 3 metformin 500 mg Tablet 1,000 mg PO BID@0630,2200 RF: 0 1 tab PO DAILY@0630 RF: 0 metoprolol succinate 25 mg tablet extended release 24 hr 100 mg PO BID RF: 0 atorvastatin 20 mg PO DAILY RF: 0 Discharge Orders: Discharge ED (Routine); Ordered 04/23/21 Ordered By: Jasper Ceja Referrals: Yovany Morgan MD [Physician] - (Follow up tomorrow. ) Tammy Cruz DO [Primary Care Provider] - Patient Instructions: Blurred Vision (ED) Activity Restrictions/Additional Instructions: Your contact information has been faxed to the ophthalmology clinic. You should hear from them tomorrow morning about a time to come in for an appointment. If you have not heard from them by 11 AM, call the number above. Let them know you were seen here and need to be seen today. Return for worsening pain, any other concerning symptoms. Coding Level of Care Code ED Shuttle Route Vehicle Operator for [facility] F[facility] Exam Expanded Problem Focused
--- NOTE | 2021-04-23 18:34 | CTR_ITS ---
PROCEDURE INFORMATION: Exam: CT Orbits With Contrast Exam date and time: 04/23/2021 6:34 PM Age: 36 years old Clinical indication: Other: Blurred vision L eye TECHNIQUE: Imaging protocol: Computed tomography images of the orbits with intravenous contrast. Radiation optimization: All CT scans at this facility use at least one of these dose optimization techniques: automated exposure control; mA and/or kV adjustment per patient size (includes targeted exams where dose is matched to clinical indication); or iterative reconstruction. Contrast material: OMNI 300; Contrast volume: 95 ml; Contrast route: INTRAVENOUS (IV); COMPARISON: CT head wo con* [id number] 04/23/2021 7:07 PM RADIATION DOSE METRICS: Total DLP (mGy-cm): 420.79 FINDINGS: Orbital cavity: Orbits are normal. Globes are unremarkable. Paranasal sinuses: There is a mucous retention cyst in the right maxillary sinus. The remaining sinuses are clear. No air-fluid levels. Bones/joints: No acute fracture. Soft tissues: No significant facial soft tissue swelling. CT/CT orbit BI w con [id number] IMPRESSION: No acute abnormality.
--- NOTE | 2021-04-23 18:34 | CTR_ITS ---
PROCEDURE INFORMATION: Exam: CT Head Without Contrast Exam date and time: 04/23/2021 6:34 PM Age: 36 years old Clinical indication: Other: Decreased vision left eye TECHNIQUE: Imaging protocol: Computed tomography of the head without contrast. Radiation optimization: All CT scans at this facility use at least one of these dose optimization techniques: automated exposure control; mA and/or kV adjustment per patient size (includes targeted exams where dose is matched to clinical indication); or iterative reconstruction. COMPARISON: CT head wo con* [id number] 09/24/2020 4:36 AM RADIATION DOSE METRICS: Total DLP (mGy-cm): 869.26 FINDINGS: Brain: Unchanged mild volume loss with unchanged small bifrontal benign hygromas. No hemorrhage. Unremarkable white matter. No mass effect. Cerebral ventricles: No ventriculomegaly. Paranasal sinuses: Visualized sinuses are unremarkable. No fluid levels. Mastoid air cells: Visualized mastoid air cells are well aerated. Bones/joints: Unremarkable. No acute fracture. Soft tissues: Unremarkable. CT/CT head wo con* [id number] IMPRESSION: No acute intracranial abnormality.
--- NOTE | 2021-04-23 18:52 | PC.NURSE ---
Pt completed vision exam, rgith eye 20/25, Left eye 20/100. Dr. Ceja advised
[2021-04-23] MEDS: iohexol 300 mg/mL 100 mL Btl IV (19:13)
[2021-04-23 21:52] VITALS: RESP 18
== END 2021-04-23 21:54 | disposition home or self-care (01) ==
PROVIDERS: Emergency Provider Emergency Medicine; PCP Family Medicine
DX: H53.132 Sudden visual loss, left eye (principal); Z79.4 Long term (current) use of insulin; E11.9 Type 2 diabetes mellitus without complications
CPT/HCPCS: 70450; 70481; 99283; Q9967

== ENCOUNTER → 2021-05-31 11:03 | Outpatient (BNVA) | payer OTHER, SELFPAY | PROVIDERS: PCP Family Medicine; Referring Provider Registered Nurse; Visit Provider Specialist | DX: G56.03 Carpal tunnel syndrome, bilateral upper limbs (principal) | CPT/HCPCS: 73130 ==

== ENCOUNTER → 2021-07-24 00:01 | Outpatient (BNVA) | payer OTHER, SELFPAY | PROVIDERS: PCP Family Medicine; Visit Provider Specialist | DX: Z20.822 Contact with and (suspected) exposure to COVID-19 (principal); Z01.818 Encounter for other preprocedural examination | CPT/HCPCS: 87635 ==

== ENCOUNTER 2021-07-28 06:46 | Day surgery (SDC) | payer OTHER, MEDICAID, SELFPAY ==
[2021-07-27 11:22] VITALS: BMI 48.6
[2021-07-28 07:19] VITALS: BP 168/96; PULSE 98; RESP 18; TEMP 36.7; O2SAT 96
--- NOTE | 2021-07-28 07:20 | P.HPUD_ITS ---
Surgery/Procedure H&P Update DATE OF PROCEDURE: July 28, 2021 DATE H&P PERFORMED: 07/19/21 H&P UPDATE INFORMATION: I have reviewed H&P completed within last 30 days, I have examined patient prior to procedure, Changes to prior documentation as noted here and H&P is in [facility] EMR on date indicated CHANGES TO PREVIOUS DOCUMENTATION: None PREOP DIAGNOSIS: Right carpal tunnel syndrome PLANNED PROCEDURE: Operation Date: 07/28/21 08:20 Proposed Procedures p Carpal Tunnel Release G56.03(Right) - Kristen Vieira MD Related Problem List Diagnoses (1) Carpal tunnel syndrome on right:
[2021-07-28] MEDS: sodium chloride 0.9% 1,000 ML 30 ML IV (07:27)
[2021-07-28] MEDS: acetaminophen 1,000 MG/100 ML PIGGYBACK 400 MG IV (07:34)
[2021-07-28] MEDS: CELEcoxib 200 mg Capsule 400 MG PO (07:36)
--- NOTE | 2021-07-28 07:40 | P.ANESASSM_ITS ---
Pre-Anesthetic Assessment Height/Weight: Height 1.68 m Weight 136.531 kg Temp Pulse Resp BP Pulse Ox 98.1 F 98 18 168/96 96 07/28/21 07:19 07/28/21 07:19 07/28/21 07:19 07/28/21 07:19 07/28/21 07:19 Preop Diagnosis: Right carpal tunnel syndrome Operation Date: 07/28/21 08:20 Proposed Procedures p Carpal Tunnel Release G56.03(Right) - Kristen Vieira MD Familial anesthetic complications: None Was Beta Dk taken within 24 hours: Yes Was Clonidine taken within 24 hours: Yes Last intake: Intake Last Liquid Date 07/27/21 Last Liquid Time 21:00 Last Solid Date 07/27/21 Last Solid Time 20:30 Social No alcohol and No tobacco Exam alert, oriented x 3, clear to auscultation bilaterally and regular rate & rhythm Airway Submandibular: within normal limits Cervical ROM: within normal limits Mallampati: Class II Dentition: full CV/HEM Hypertension Metabolic Diabetes Mellitus, Hyperlipidemia and Morbid Obesity Neuropsych Anxiety and Depression Anesthetic Plan ASA status: 3 Anesthesia: MAC and Regional (specify below) (Uriel hudson) Medications/Allergies Home Medications Medication Instructions Recorded Confirmed Last Taken Type metformin 500 mg tablet 1,000 mg PO BID@0630,2200 08/18/19 07/28/21 07/27/21 History 1 tab PO DAILY@0630 08/22/20 07/28/21 07/27/21 History atorvastatin 20 mg PO DAILY 01/06/21 07/28/21 07/27/21 History clonidine HCl 0.1 mg tablet 0.1 mg PO TID tab 02/27/21 07/28/21 07/27/21 History lisinopril 20 mg tablet 20 mg PO BID tab 03/21/21 07/28/21 07/27/21 History metoprolol succinate 25 mg 100 mg PO BID tab 03/21/21 07/28/21 07/28/21 06:15 History tablet,extended release 24 hr insulin regular hum U-500 conc 170 unit (0.34 mL) SUBCUT TID 05/23/21 07/28/21 07/27/21 Rx (Humulin R U-500 (Conc) Insulin #91.8 ml Kwikpen) Allergies Allergy/AdvReac Type Severity Reaction Status Date / Time basil Allergy Severe mouth Verified 05/31/21 10:47 miko [facility] Anesthesia Medical History Diabetes type 2 Hypertriglyceridemia No pertinent past medical history neghx: htn,thyroid,dvt/pe PCOS (polycystic ovarian syndrome) Supervision of high-risk Surgical History History of hip surgery (~1996) Pinned due to growth plate slipped History of laparotomy (~06/2001) removal of ovarian cyst and left fallopian tube due to damage - Andrew Family History Grandmother Diabetes Paternal Ovarian cancer Paternal-- dx age 60's Grandfather Diabetes Paternal Mother Hypercholesteremia Denies family history of Colon cancer Heart disease Breast cancer Hypertension Uterine cancer Thyroid disease Stroke Social History Smoking and tobacco status: never smoked Alcohol intake: current Alcohol intake frequency: holidays/special occasions only Desire information about substance/drug rehabilitation?: No Counseling given: No Last substance use date: 05/27/20 Other details last substance use: marijuana Additional social history: - Tobacco use: Never Alcohol use: occasional Drug use: denies Female Reproductive History Date of last menstrual period: 12/04/20 Data Anesthesia Cardiac Studies: No Data to Display
[2021-07-28 07:45] LABS: Glucose Point of Care 214 mg/dL (70-110)
[2021-07-28 08:45] LABS: OR HCG Qualitative Urine Negative (Negative)
[2021-07-28] MEDS: ceFAZolin 1,000 mg SDV 1000 MG IVP (09:01)
[2021-07-28 09:46] VITALS: BP 151/91; PULSE 88; RESP 14; TEMP 36.2; O2SAT 96
[2021-07-28 09:51] VITALS: BP 158/93; PULSE 89; RESP 20; O2SAT 95
[2021-07-28 09:56] VITALS: BP 151/94; PULSE 93; RESP 18; TEMP 37; O2SAT 94
--- NOTE | 2021-07-28 10:13 | PM.OP ---
Operative Report Date of procedure: July 28, 2021 Pre-op diagnosis: Right carpal tunnel syndrome Post-op diagnosis: Right carpal tunnel syndrome Procedure done: Right carpal tunnel release Pathology: none sent Surgeon: Kristen Vieira Supply Requirements Officer: None Anesthesia: MAC (With [place] block, ASA 3) Estimated blood loss (mL): 3 Tourniquet time (min): 38 (At 250 mmHg) IV fluids (mL): 600 Complications: None Disposition: PACU (Then discharge home with family) Brief History: Established 36 year old female here to discuss bilateral carpal tunnel syndrome.? She would like to proceed with surgery. She met with her foreign clerk who has her scheduled for eye surgery on 08/02, but he feels she may proceed with carpal tunnel surgery at this time with no additional risk. She notes increased stiffness to her hands and increase in pain with typing.? Her symptoms are not improving, and she notes that the right carpal tunnel is worse than the left symptomatically. Procedure: The patient was brought to the operating theater. The patient had a Uriel block with MAC. The tourniquet was elevated to 250 mmHg for a total tourniquet time of 38 minutes. The patient was also given Ancef 3 g preoperatively. The arm was then prepped and draped with DuraPrep in usual fashion with the arm draped free. A surgical pause was performed. At the time, the surgical pause, we confirmed the site and side of surgery. We also confirmed the patient's identity, appropriate and timely administration of preoperative antibiotics and preoperative surgical markings. An incision was then made along the thenar crease. The incision crossed the wrist joint in a curvilinear fashion. Dissection continued through skin and soft tissues using a scalpel. The palmaris longus was identified along with the transverse carpal ligament. Each of these was released carefully to avoid injury to the median nerve. We were able to dissect gently into the carpal canal which was noted to be quite tight with significant compression across the median nerve. The nerve was visualized and was an hourglass shape with purplish. The canal was subsequently palpated to assure there was no bony encroachment upon the canal. There was a quite thickened fibrous tissue within the canal, and this was opened longitudinally as well. The canal was then palpated distally and proximally to assure that my small finger was passed easily without impingement. Finding this to be so, attention was directed to closure. The wound was irrigated with bupivacaine plain. It was then closed with 3-0 nylon in an interrupted mattress fashion. Sterile dressing was then placed consisting of Dermabond, fluffed fluffs, sterile soft roll, and an Duncan wrap. The tourniquet was released after 38 minutes. There were no complications. There were no specimens. The procedure was well tolerated. Plan is the patient will be discharged home. Related Problem List Diagnoses (1) Carpal tunnel syndrome on right:
[2021-07-28 10:18] VITALS: BP 155/93; PULSE 81; RESP 18; O2SAT 98
--- NOTE | 2021-07-28 17:42 | ANE.PACU2 ---
Inpatient post-anesthesia follow up: Airway intact: Yes Vital signs: Temperature 98.6 F Pulse Rate 81 Respiratory Rate 18 Blood Pressure 155/93 Pulse Oximetry 98 Oxygen Delivery Me thod Room Air Oxygen Flow Rate Fraction of Inspir ed Oxygen Hydration adequate: Yes Nausea and vomiting: No Pain level: 1 Mental status: Baseline
== END 2021-07-28 10:40 | disposition home or self-care (01) ==
PROVIDERS: Anesthesiology; PCP Family Medicine; Visit Provider Specialist
PROC: (CPT 64721; principal; 2021-07-28 08:10)
DX: G56.01 Carpal tunnel syndrome, right upper limb (principal); I10 Essential (primary) hypertension; E11.9 Type 2 diabetes mellitus without complications; E78.5 Hyperlipidemia, unspecified; E66.01 Morbid (severe) obesity due to excess calories; Z68.42 Body mass index [BMI] 45.0-49.9, adult; F41.9 Anxiety disorder, unspecified; F32.9 Major depressive disorder, single episode, unspecified; Z79.84 Long term (current) use of oral hypoglycemic drugs; Z79.4 Long term (current) use of insulin; E28.2 Polycystic ovarian syndrome
CPT/HCPCS: 64721; 36416; 81025; 82962; 84703; J0690; J2704; J3010; J3490; J7030

== ENCOUNTER 2021-11-01 07:00 | Outpatient (CLI) | payer OTHER, MEDICAID, SELFPAY ==
[2021-11-01 07:47] LABS: Creatinine Urine, Random 86 mg/dL (28-217)
[2021-11-01 07:58] LABS: Alanine Aminotransferase 30 U/L (0-33); Albumin Level 3.4 g/dL (3.5-5.2); Alkaline Phosphatase 53 IU/L (35-105); Aspartate Amino Transferase 15 U/L (0-32); Blood Urea Nitrogen 14 mg/dL (6-20); Carbon Dioxide 23 mmol/L (22-29); Chol HDL Ratio 8.15 mg/dL (0.0-4.40); Cholesterol 220 mg/dL (0-200); Free T4 Free Thyroxine 0.97 ng/dL (0.82-1.77); Globulin 3.5 g/dL (1.3-4.6); Glomerular Filtration Rate 138.8 mL/min (90-130); Glucose 170 mg/dL (65-115); HDL Cholesterol 27 mg/dL (60-100); Osmolality Calculated 286 mOsm/kg (285-295); Thyroid Stimulating Hormone 1.68 uIU/mL (0.27-4.20); Total Bilirubin 0.2 mg/dL (0.15-1.2); Total Protein 6.9 g/dL (6.6-8.7); Triglycerides 437 mg/dL (0-150)
[2021-11-01 07:59] LABS: Potassium 4.3 mmol/L (3.5-5.1)
[2021-11-01 08:01] LABS: Microalbum Creatinine Ratio Ur 3395 mg/dL (0-20); Microalbumin Random Urine 292 ug/dL (0-20)
[2021-11-01 09:16] LABS: Estmated Average Glucose 154
[2021-11-01 09:20] LABS: LDL Cholesterol Direct 133 mg/dL (0-100)
[2021-11-01 09:25] LABS: Anion Gap 15.3 (5-19)
[2021-11-01 09:26] LABS: Chloride 102 mmol/L (98-107); Sodium 136 mmol/L (136-145)
== END 2021-11-01 07:01 | disposition home or self-care (01) ==
PROVIDERS: PCP Family Medicine; Visit Provider Internal Medicine
DX: N91.5 Oligomenorrhea, unspecified (principal); F32.9 Major depressive disorder, single episode, unspecified; E78.1 Pure hyperglyceridemia
CPT/HCPCS: 80053; 80061; 82044; 83036; 83721; 84439; 84443

== ENCOUNTER 2021-11-06 10:09 | Outpatient (CLI) | payer OTHER, MEDICAID, SELFPAY ==
[2021-11-06 10:39] LABS: Urine Creatinine 146 mg/dL (28-217)
[2021-11-06 10:41] LABS: Total Volume Urine 1300 ml
[2021-11-10 07:17] LABS: Total Urine 1300 mL; Urine Creatinine 1.77 g/24 h (0.50-2.15)
== END 2021-11-06 10:10 | disposition home or self-care (01) ==
PROVIDERS: PCP Family Medicine; Visit Provider Internal Medicine
DX: E78.1 Pure hyperglyceridemia (principal); N91.5 Oligomenorrhea, unspecified; F32.9 Major depressive disorder, single episode, unspecified
CPT/HCPCS: 82530; 82570

== ENCOUNTER 2021-12-15 05:50 | Day surgery (SDC) | payer OTHER, MEDICAID, SELFPAY ==
[2021-12-14 10:26] VITALS: BMI 49.2
[2021-12-15 06:08] VITALS: BP 172/97; PULSE 87; RESP 16; TEMP 36.8; O2SAT 96
[2021-12-15 06:14] LABS: OR HCG Qualitative Urine Negative (Negative)
[2021-12-15 06:23] LABS: Glucose Point of Care 158 mg/dL (70-110)
[2021-12-15] MEDS: CELEcoxib 200 mg Capsule 400 MG PO (06:25)
[2021-12-15] MEDS: acetaminophen 1,000 MG/100 ML PIGGYBACK 400 MG IV (06:25)
[2021-12-15] MEDS: sodium chloride 0.9% 1,000 ML 30 ML IV (06:25)
--- NOTE | 2021-12-15 06:46 | ANES.PREANE2 ---
Pre-Anesthetic Assessment Height/Weight: Height 1.68 m Weight 138.346 kg Temp Pulse Resp BP Pulse Ox O2 Del Method 98.2 F 87 16 172/97 96 12/15/21 06:08 12/15/21 06:08 12/15/21 06:08 12/15/21 06:08 12/15/21 06:08 12/15/21 06:08 Preop Diagnosis: Left carpal tunnel syndrome Operation Date: 12/15/21 07:00 Proposed Procedures p LEFT CARPAL TUNNEL RELEASE [id number],G56.00(Left) - Kristen Vieira MD Familial anesthetic complications: None Was Beta Dk taken within 24 hours: Yes Was Clonidine taken within 24 hours: N/A Last intake: Intake Last Liquid Date 12/14/21 Last Liquid Time 20:30 Last Solid Date 12/14/21 Last Solid Time 20:00 Social No alcohol and No tobacco Exam alert, oriented x 3, clear to auscultation bilaterally and regular rate & rhythm Airway Mallampati: Class III Dentition: full Pulmonary None reported CV/HEM Hypertension Metabolic Diabetes Mellitus, Hyperlipidemia and Morbid Obesity PCOS Neuropsych Depression Anesthetic Plan ASA status: 3 Anesthesia: MAC and Regional (specify below) (davidson block) Risk of > 500 ml blood loss (7ml/kg in children): No Medications/Allergies Home Medications Medication Instructions Recorded Confirmed Last Taken Type metformin 500 mg tablet 1,000 mg PO BID@0630,2200 08/18/19 12/15/21 12/14/21 History 1 tab PO DAILY@0630 08/22/20 12/15/21 12/14/21 History atorvastatin 20 mg PO DAILY 01/06/21 12/15/21 12/14/21 History clonidine HCl 0.1 mg tablet 0.1 mg PO TID PRN Hypertension 02/27/21 12/14/21 07/27/21 History lisinopril 20 mg tablet 20 mg PO BID 03/21/21 12/15/21 12/14/21 History metoprolol succinate 25 mg 100 mg PO BID 03/21/21 12/15/21 12/15/21 History tablet,extended release 24 hr insulin regular hum U-500 conc 225 unit (0.45 mL) SUBCUT TID 09/15/21 12/15/21 12/14/21 Rx (Humulin R U-500 (Conc) Insulin #121.5 mL Kwikpen) fenofibrate 160 mg tablet 160 mg PO DAILY 90 days #90 tabs 11/07/21 12/15/21 12/14/21 Rx semaglutide (Ozempic) See Rx Instructions SUBCUT .Weekly 11/07/21 12/14/21 Unknown Rx 3 months #7.5 mL Allergies Allergy/AdvReac Type Severity Reaction Status Date / Time basil Allergy Severe mouth Verified 12/15/21 06:04 swells Current Medications Generic Name Dose Route Start Last Admin Trade Name Freq PRN Reason Stop Dose Admin Sodium Chloride 1,000 mls @ 30 mls/hr 12/15/21 06:00 12/15/21 06:25 Sodium Chloride 0.9% IV 12/16/21 05:59 30 mls/hr .Q24H SABRINA Administration PFSH Anesthesia Medical History Diabetes type 2 Hypertriglyceridemia No pertinent past medical history neghx: htn,thyroid,dvt/pe PCOS (polycystic ovarian syndrome) Supervision of high-risk Surgical History History of hip surgery (~1996) Pinned due to growth plate slipped History of laparotomy (~06/2001) removal of ovarian cyst and left fallopian tube due to damage - Andrew Family History Grandmother Diabetes Paternal Ovarian cancer Paternal-- dx age 60's Grandfather Diabetes Paternal Mother Hypercholesteremia Denies family history of Colon cancer Heart disease Breast cancer Hypertension Uterine cancer Thyroid disease Stroke Social History Smoking and tobacco status: never smoked Alcohol intake: current Alcohol intake frequency: holidays/special occasions only Desire information about substance/drug rehabilitation?: No Counseling given: No Last substance use date: 05/27/20 Other details last substance use: marijuana Additional social history: - Tobacco use: Never Alcohol use: occasional Drug use: denies Female Reproductive History Date of last menstrual period: 11/08/21 Data Anesthesia Cardiac Studies: No Data to Display
--- NOTE | 2021-12-15 07:04 | P.HPUD_ITS ---
Surgery/Procedure H&P Update DATE OF PROCEDURE: December 15, 2021 DATE H&P PERFORMED: 11/20/21 H&P UPDATE INFORMATION: I have reviewed H&P completed within last 30 days, I have examined patient prior to procedure, No changes to prior documentation and H&P is in [facility] EMR on date indicated PREOP DIAGNOSIS: Left carpal tunnel syndrome PLANNED PROCEDURE: Operation Date: 12/15/21 07:00 Proposed Procedures p LEFT CARPAL TUNNEL RELEASE [id number],G56.00(Left) - Kristen Vieira MD Related Problem List Diagnoses (1) Carpal tunnel syndrome, left:
[2021-12-15] MEDS: ceFAZolin 2,000 MG in sodium chloride 0.9% (plus) 50 ML 100 MG IV (07:09)
[2021-12-15 08:05] VITALS: BP 110/65; PULSE 83; RESP 16; TEMP 36.4; O2SAT 95
[2021-12-15 08:10] VITALS: BP 112/76; PULSE 79; RESP 16; TEMP 36.4; O2SAT 95
[2021-12-15 08:14] VITALS: BP 132/71; PULSE 82; RESP 17; TEMP 36.6; O2SAT 95
--- NOTE | 2021-12-15 08:14 | PM.OP ---
Operative Report Date of procedure: December 15, 2021 Pre-op diagnosis: Left carpal tunnel syndrome Post-op diagnosis: Left carpal tunnel syndrome Post-op findings: Severe compression across the carpet with purpleish median nerve Procedure done: Left carpal tunnel release Pathology: none sent Surgeon: Kristen Vieira Nurse Coordinator: None Anesthesia: MAC (With Uriel block, ASA 3) Estimated blood loss (mL): 2 Tourniquet time (min): 37 (At 300 mmHg) IV fluids (mL): 1,000 Urine output (mL): 0 (No Munoz) Complications: None Condition: stable Disposition: PACU (Then return to same-day surgery for discharge to home) Brief History: Marcelina presented to my office for evaluation for left carpal tunnel release. She has previously had right carpal tunnel release which was successful. She has numbness and tingling as well as studies consistent with carpal tunnel in the left, and wishes to proceed with surgical intervention. Risks and complications are discussed and consents are signed. Procedure: The patient was brought to the operating theater. She had a [place] block with MAC. The tourniquet was elevated to 300 mmHg for a total tourniquet time of 37 minutes. The patient was also given Ancef 2 g preoperatively. The arm was then prepped and draped with DuraPrep in usual fashion with the arm draped free. A surgical pause was performed. At the time, the surgical pause, we confirmed the site and side of surgery. We also confirmed the patient's identity, appropriate and timely administration of preoperative antibiotics and preoperative surgical markings. An incision was then made along the thenar crease. The incision crossed the wrist joint in a curvilinear fashion. Dissection continued through skin and soft tissues using a scalpel. The palmaris longus was identified along with the transverse carpal ligament. Each of these was released carefully to avoid injury to the median nerve. We were able to dissect gently into the carpal canal which was noted to be quite tight with significant compression across the median nerve. The nerve was visualized and was an hourglass shape. The canal was subsequently palpated to assure there was no bony encroachment upon the canal. There was a quite thickened fibrous tissue within the canal, and this was opened longitudinally as well. The canal was then palpated distally and proximally to assure that my small finger was passed easily without impingement. Finding this to be so, attention was directed to closure. The wound was irrigated with ropivacaine plain. It was then closed with 3-0 nylon in an interrupted mattress fashion. Sterile dressing was then placed consisting of Dermabond, OpSite, fluffed fluffs, sterile soft roll, and an Duncan wrap. The tourniquet was released after 37 minutes. There were no complications. There were no specimens. The procedure was well tolerated. Plan is the patient will be discharged home. Related Problem List Diagnoses (1) Carpal tunnel syndrome, left:
[2021-12-15 08:30] VITALS: BP 117/95; PULSE 76; RESP 16; O2SAT 96
--- NOTE | 2021-12-15 14:18 | ANE.PACU2 ---
Inpatient post-anesthesia follow up: Airway intact: Yes Vital signs: Temperature 97.8 F Pulse Rate 76 Respiratory Rate 16 Blood Pressure 117/95 Pulse Oximetry 96 Oxygen Delivery Me thod Room Air Oxygen Flow Rate Fraction of Inspir ed Oxygen Hydration adequate: Yes Nausea and vomiting: No Pain level: 1 Mental status: Baseline
== END 2021-12-15 08:40 | disposition home or self-care (01) ==
PROVIDERS: Anesthesiology; PCP Family Medicine; Visit Provider Specialist
PROC: (CPT 64721; principal; 2021-12-15 07:00)
DX: G56.02 Carpal tunnel syndrome, left upper limb (principal); E11.9 Type 2 diabetes mellitus without complications; E78.5 Hyperlipidemia, unspecified; E66.01 Morbid (severe) obesity due to excess calories; Z68.42 Body mass index [BMI] 45.0-49.9, adult; E28.2 Polycystic ovarian syndrome; F32.A Depression, unspecified; Z79.4 Long term (current) use of insulin; E78.00 Pure hypercholesterolemia, unspecified
CPT/HCPCS: 64721; 36416; 81025; 82962; 84703; J2250; J2704; J3010; J3490; J7030

== ENCOUNTER 2022-02-03 10:50 | Outpatient (CLI) | payer OTHER, MEDICAID, SELFPAY ==
[2022-02-03 11:59] LABS: Urine Creatinine 106 mg/dL (28-217)
[2022-02-03 12:14] LABS: Total Volume Urine 1875 ml
[2022-02-08 13:07] LABS: Free Cortisol Urine 28.6 mcg/24 h (4.0-50.0); Total Urine 1875 mL; Urine Creatinine 1.88 g/24 h (0.50-2.15)
== END 2022-02-03 10:51 | disposition home or self-care (01) ==
PROVIDERS: PCP Family Medicine; Visit Provider Internal Medicine
DX: E78.1 Pure hyperglyceridemia (principal); N91.5 Oligomenorrhea, unspecified
CPT/HCPCS: 82530; 82570

== ENCOUNTER 2022-05-03 07:13 | Outpatient (CLI) | payer OTHER, MEDICAID, SELFPAY ==
[2022-05-03 08:02] LABS: Alanine Aminotransferase 28 U/L (0-33); Albumin Level 3.7 g/dL (3.5-5.2); Alkaline Phosphatase 37 U/L (35-105); Anion Gap 13.4 (5-19); Aspartate Amino Transferase 18 U/L (0-32); Blood Urea Nitrogen 16 mg/dL (6-20); Carbon Dioxide 22 mmol/L (22-29); Chloride 104 mmol/L (98-107); Chol HDL Ratio 4.16 mg/dL (0.0-4.40); Cholesterol 129 mg/dL (0-200); Globulin 3.3 g/dL (1.3-4.6); Glucose 140 mg/dL (65-115); HDL Cholesterol 31 mg/dL (60-100); LDL Cholesterol Calculated 68 mg/dL (50-129); LDL HDL Ratio 2.19 RATIO (0.00-3.22); Osmolality Calculated 283 mOsm/kg (285-295); Potassium 4.4 mmol/L (3.5-5.1); Sodium 135 mmol/L (136-145); Total Bilirubin 0.2 mg/dL (0.15-1.2); Triglycerides 149 mg/dL (0-150)
[2022-05-03 08:05] LABS: Creatinine Urine, Random 170 mg/dL (28-217); Microalbumin Random Urine 31 ug/dL (0-20)
[2022-05-03 08:06] LABS: Estmated Average Glucose 126
[2022-05-03 08:13] LABS: Calcium 8.7 mg/dL (8.5-10.5)
[2022-05-03 08:44] LABS: Microalbum Creatinine Ratio Ur 182 mg/dL (0-20)
[2022-05-03 08:46] LABS: Glomerular Filtration Rate 93.6 mL/min (90-130)
== END 2022-05-03 07:14 | disposition home or self-care (01) ==
LOC: LAB 07:17
PROVIDERS: PCP Family Medicine; Visit Provider Internal Medicine
DX: E11.9 Type 2 diabetes mellitus without complications (principal); E78.1 Pure hyperglyceridemia; E78.2 Mixed hyperlipidemia
CPT/HCPCS: 36415; 80053; 80061; 82044; 83036

== ENCOUNTER 2022-07-05 21:08 | Emergency (ER) | payer OTHER, MEDICAID, SELFPAY ==
[2022-07-05 21:10] VITALS: BP 159/102; PULSE 98; RESP 16; TEMP 36.8; O2SAT 97
--- NOTE | 2022-07-05 22:26 | W.ED.URI ---
HPI - URI/Sore Throat General: Chief Complaint: Shortness of Breath/Dyspnea Stated Complaint: Sore Throat\SOB\Cough\Wheezing Time Seen by Provider: 07/05/22 21:32 History of Present Illness: Patient is in today for cough. She states that since Saturday she has had significant nasal congestion and drainage with a cough and feeling somewhat tight when she breathes. She felt maybe a little feverish on Saturday but did not measure her temperature and has not felt that way since. She has not been around anybody else that is sick that she is aware of but she has had allergies recently. Associated symptoms: Reports nasal congestion; Deny abdominal pain, chills, chest pain, fever(s), headache(s), nausea or vomiting Review of Systems Const: Reports: fatigue; Denies: fever(s), chills or body aches ENMT: Reports: nasal discharge, nasal congestion and post nasal drip Card: Denies: chest pain or palpitations Resp: Reports: non-productive cough and wheezing; Denies: dyspnea GI: Denies: abdominal pain, nausea or vomiting : Denies: flank pain, difficulty voiding, dysuria or urinary frequency Neuro: Denies: headache(s), numbness in extremities, weakness in extremities, sensory changes or lack of coordination PFSH ED PFSH: Medical History Diabetes type 2 Hypertriglyceridemia No pertinent past medical history neghx: htn,thyroid,dvt/pe PCOS (polycystic ovarian syndrome) Supervision of high-risk Surgical History History of hip surgery (~1996) Pinned due to growth plate slipped History of laparotomy (~06/2001) removal of ovarian cyst and left fallopian tube due to damage - Andrew Family History Grandmother Diabetes Paternal Ovarian cancer Paternal-- dx age 60's Grandfather Diabetes Paternal Mother Hypercholesteremia Denies family history of Colon cancer Heart disease Breast cancer Hypertension Uterine cancer Thyroid disease Stroke Social History Smoking and tobacco status: never smoked Alcohol intake: current Alcohol intake frequency: holidays/special occasions only Desire information about substance/drug rehabilitation?: No Counseling given: No Last substance use date: 05/27/20 Other details last substance use: marijuana Additional social history: - Tobacco use: Never Alcohol use: occasional Drug use: denies Physical Exam Const: COMMON NORMALS: no acute distress, patient oriented x3 and alert HENMT: NOSE: Nasal discharge present clear TYMPANIC MEMBRANE: TM abnormal TM laterality: bilateral bulging; not erythematous THROAT: uvula midline and postnasal drainage Neck/C-Spine: COMMON NORMALS: no JVD Resp: COMMON NORMALS: normal respiratory effort and No use of accessory muscles AUSCULTATION: wheezes scattered wheezes Cardio: COMMON NORMALS: no JVD, regular rate, regular rhythm, S1 normal heart sound present, S2 normal heart sound present and No murmurs present (Cardio) RATE: regular rate RHYTHM: regular rhythm HEART SOUNDS: S1 normal heart sound present and S2 normal heart sound present Neuro: COMMON NORMALS: patient oriented x3, moves all extremities and no focal motor deficits SENSORIUM/ORIENTATION: Yes alert Course Vital Signs: Vital signs: Vital Signs Temperature 98.3 F 07/05/22 21:10 Pulse Rate 81 07/05/22 23:10 Respiratory Rate 18 07/05/22 23:10 Blood Pressure 159/102 07/05/22 21:10 Pulse Oximetry 98 07/05/22 23:10 Oxygen Delivery Me thod 07/05/22 23:09 MDM - URI/Sore Throat Medical Decision Making Patient is in today for cough, nasal congestion and drainage. She reports that she does feel like it is difficult to breathe because everything feels tight. She has noticed some wheezing off and on. Patient has been ill for 2 days does not have any fever and her oxygen saturation is 97% on room air. I discussed testing for influenza and COVID-19 and patient does not truly want that done at this time. We discussed conservative treatment for upper respiratory infection including rest, increase fluid intake, coughing and deep breathing, [id number]-[id number] medications although she should be careful with medications with decongestant in it because it can elevate her blood pressure. She reports that she has been taking DayQuil and NyQuil. Provide patient with albuterol inhaler for home use. Advised her to follow-up with primary care provider as needed. Return to the ER for new or worsening symptoms. All questions answered to satisfaction patient and spouse are agreeable with plan of care and wished to be discharged at this time. Discharge Plan Discharge Patient Disposition: Home Clinical Impression: Acute upper respiratory infection Condition: Stable Prescriptions: New Ventolin HFA 90 mcg/actuation HFA aerosol inhaler 2 inh inhalation Q6H PRN (Reason: shortness of breath or wheezing) Qty: 6.7 0RF No Action clonidine HCl 0.1 mg tablet 0.1 mg PO TID PRN (Reason: Hypertension) lisinopril 20 mg tablet 20 mg PO BID fenofibrate 160 mg tablet 160 mg PO DAILY 90 Days Qty: 90 3RF icosapent ethyl [Vascepa] 1 gram capsule 2 g PO BID Qty: 60 3RF atorvastatin 40 mg tablet 40 mg PO DAILY Qty: 90 3RF Ozempic 1 mg/dose (4 mg/3 mL) pen injector 1 mg SUBCUT ONCE 7 Days Qty: 3 0RF Humulin R U-500 (Conc) Kwikpen 500 unit/mL (3 mL) insulin pen 225 unit SUBCUT TID Qty: 121.5 3RF Rx Instructions: Administer 100-120 units three times a day. Ozempic 2 mg/dose (8 mg/3 mL) pen injector 2 mg SUBCUT Q7D 28 Days Qty: 3 3RF metformin 500 mg Tablet 1,000 mg PO BID@0630,2200 1 tab PO DAILY@0630 metoprolol succinate 25 mg tablet extended release 24 hr 100 mg PO BID atorvastatin 20 mg PO DAILY Discharge Orders: Discharge ED (Routine); Ordered 07/05/22 Ordered By: Josiane Tracey Referrals: Tammy Cruz DO [Primary Care Provider] - Discharge Diet: Usual diet Discharge Activity: Increase activity as tolerated Patient Instructions: Upper Respiratory Infection (DC) Activity Restrictions/Additional Instructions: I recommend conservative treatment at home including rest and staying plenty hydrated. Make sure that you are coughing and deep breathing. Use the albuterol inhaler every 4-6 hours as needed for shortness of breath or wheezing. Use caution in taking [id number] medications with decongestant as they can raise your blood pressure to dangerously high levels. Follow-up with your primary care provider as needed. Return to the ER for any new or worsening symptoms Stand Alone Forms: Work/School Release Coding Level of Care Code ED Community Development Officer for Avila Molina
[2022-07-05] MEDS: albuterol 8 gm MDI 2 PUFF INHALATION (23:07)
[2022-07-05 23:09] VITALS: PULSE 82; RESP 18; O2SAT 95
[2022-07-05 23:10] VITALS: PULSE 81; RESP 18; O2SAT 98
== END 2022-07-05 23:11 | disposition home or self-care (01) ==
PROVIDERS: Emergency Provider Nurse Practitioner Family; PCP Family Medicine
DX: J06.9 Acute upper respiratory infection, unspecified (principal); Z79.84 Long term (current) use of oral hypoglycemic drugs; Z79.4 Long term (current) use of insulin; E11.9 Type 2 diabetes mellitus without complications
CPT/HCPCS: 94640; 99283; J3535

== ENCOUNTER 2022-08-12 16:00 | Emergency (ER) | payer OTHER, MEDICAID, SELFPAY ==
[2022-08-12 16:06] VITALS: BP 191/85; PULSE 105; RESP 18; TEMP 36.8; O2SAT 97
--- NOTE | 2022-08-12 17:15 | CTR_ITS ---
PROCEDURE INFORMATION: Exam: CT Neck With Contrast Exam date and time: 08/12/2022 6:48 PM Age: 37 years old Clinical indication: Dysphagia / difficulty swallowing TECHNIQUE: Imaging protocol: Computed tomography of the neck with contrast. Radiation optimization: All CT scans at this facility use at least one of these dose optimization techniques: automated exposure control; mA and/or kV adjustment per patient size (includes targeted exams where dose is matched to clinical indication); or iterative reconstruction. Contrast material: OMNI 350; Contrast volume: 100 ml; Contrast route: INTRAVENOUS (IV); REPORTING DATA: Count of CT and Cardiac NM exams in prior 12 months: This patient has received 0 known CTs and 0 known cardiac nuclear medicine studies in the 12 months prior to the current study. COMPARISON: CT orbit BI w con [id number] 04/23/2021 7:11 PM RADIATION DOSE METRICS: Total DLP (mGy-cm): 418.56 FINDINGS: Paranasal sinuses: Right-sided maxillary sinus mucous retention cyst or polyp. No air-fluid levels. Dental: Dental disease. Pharynx: There is diffuse prominence of the nasopharyngeal tissues. There is also diffuse prominence of the mucosa of Waldeyer's ring, the oropharyngeal mucosa and the bilateral palatine tonsils. No abscess or fluid collection is seen. Larynx: Unremarkable. Epiglottis is normal. Prevertebral and retropharyngeal spaces: Unremarkable. Salivary glands: Normal. Glands are normal in size. Thyroid: The left lobe of the thyroid is enlarged with hypodense 1.8 cm nodule. Lymph nodes: Mildly prominent upper cervical chain nodes are likely reactive. For example there is a 1.4 cm left level 2 lymph node on image 66. Trachea: Visualized trachea is unremarkable. Lungs: Unremarkable as visualized. Bones/joints: Unremarkable. No acute fracture. Soft tissues: Unremarkable. No significant soft tissue swelling. CT/CT neck w con* [id number] IMPRESSION: 1. Findings of acute pharyngitis and tonsillitis. No abscess or fluid collection is identified. 2. Enlarged upper cervical chain lymph nodes are likely reactive. 3. Multiple thyroid nodules largest on the left measures 1.8 cm. Recommend ultrasound follow-up. COMMENTS: Consistent with the [employer]'s Incidental Findings Committee white paper (J Am Jamila Radiol 2015): In patients aged 35 years and older with an incidental thyroid nodule equal to or greater than 1.[address], MRI or extrathyroidal US, further evaluation with dedicated thyroid US is recommended for patients with normal life expectancy and without comorbidities. For smaller nodules without suspicious features, no further evaluation or follow up is recommended.
--- NOTE | 2022-08-12 17:18 | ED_ITS ---
HPI - General Adult General: Chief complaint: General Medical Stated complaint: SORE THROAT Time Seen by Provider: 08/12/22 17:10 History of Present Illness: 37-year-old female comes in today for persistent sore throat. Patient was seen at urgent care this morning and was given predn isone and penicillin for treatment of tonsillopharyngitis. Patient came in this evening due to persistent symptoms and difficulty with lying back and maintaining airway. Patient reports that she is able to manage her secretions and is able to swallow although it is very tender. Patient appears in no acute distress. Patient does have a history of diabetes, obesity, cannabis abuse, hypertension, and hyperlipidemia. Associated symptoms: Reports nausea; Deny chest pain, dyspnea, headache(s), rash or vomiting Review of Systems General: Reports: 10 or more systems reviewed and unremarkable except in HPI and below Const: Reports: chills; Denies: fever(s) ENMT: Reports: throat pain Card: Denies: chest pain Resp: Denies: dyspnea GI: Reports: nausea; Denies: vomiting, diarrhea or constipation : Denies: difficulty voiding Musc: Reports: neck pain Skin/Breast: Denies: rash Neuro: Denies: headache(s) PFS ED PFSH: Medical History Diabetes type 2 Hypertriglyceridemia No pertinent past medical history neghx: htn,thyroid,dvt/pe PCOS (polycystic ovarian syndrome) Supervision of high-risk Surgical History History of hip surgery (~1996) Pinned due to growth plate slipped History of laparotomy (~06/2001) removal of ovarian cyst and left fallopian tube due to damage - Andrew Family History Grandmother Diabetes Paternal Ovarian cancer Paternal-- dx age 60's Grandfather Diabetes Paternal Mother Hypercholesteremia Denies family history of Colon cancer Heart disease Breast cancer Hypertension Uterine cancer Thyroid disease Stroke Social History Smoking and tobacco status: never smoked Alcohol intake: current Alcohol intake frequency: holidays/special occasions only Desire information about substance/drug rehabilitation?: No Counseling given: No Last substance use date: 05/27/20 Other details last substance use: marijuana Additional social history: - Tobacco use: Never Alcohol use: occasional Drug use: denies Physical Exam Const: COMMON NORMALS: alert HENMT: COMMON NORMALS: normocephalic, TM's normal bilaterally and Normal ext ernal nose present HEAD & SCALP: normocephalic NOSE: Normal external nose present TYMPANIC MEMBRANE: TM's normal bilaterally MOUTH: Normal oral and palatal mucosa present THROAT: posterior oropharynx abnormal (Kissing tonsils, erythema, no asymmetry) Neck/C-Spine: COMMON NORMALS: full ROM Resp: COMMON NORMALS: normal respiratory effort and clear to auscultation bilaterally AUSCULTATION: clear to auscultation bilaterally Cardio: COMMON NORMALS: regular rate and regular rhythm RATE: regular rate RHYTHM: regular rhythm GI: COMMON NORMALS: Soft to palpation and non-tender PALPATION: Yes Soft to palpation Extremity: COMMON NORMALS: normal to inspection Neuro: SENSORIUM/ORIENTATION: Yes alert Skin: COMMON NORMALS: turgor normal GENERAL SKIN EXAM: turgor normal Course Vital Signs: Vital signs: Vital Signs Temperature 98.3 F 08/12/22 16:06 Pulse Rate 105 H 08/12/22 16:06 Respiratory Rate 18 08/12/22 16:06 Blood Pressure 191/85 08/12/22 16:06 Pulse Oximetry 97 08/12/22 16:06 Oxygen Delivery Me thod 08/12/22 16:06 [facility] - General Adult Medical Decision Making Patient comes in today due to difficulty swallowing and tonsil pharyngitis. Patient was seen this morning and started on prednisone and penicillin. Patient was also given 8 mg of dexamethasone x1. Patient reports minimal to no improvement and difficulty with maintaining airway when lying flat. Patient is managing secretions well. Posterior pharynx shows kissing tonsils with no asymmetry. Patient is obese. Differential diagnosis includes tonsillar abscess, peritonsillar abscess, tonsillitis, upper respiratory infection. Strep test was positive. CT of the neck noted enlarged tonsils but no signs of abscess, incidental thyroid nodules were also noted. Laboratory values noted some elevation in CRP and sed rate along with leukocytosis of 14,000. Patient was treated in the ER with ketorolac, IV dexamethasone, and 600 mg of clindamycin. Patient had improvement of symptoms and was able to swallow without difficulty. Patient was also given hydrocodone 7-1/2 mg for further pain relief. Patient will be continued with hydrocodone along with her previous prescriptions for prednisone and penicillin. Patient reported understanding of care plan and need for follow-up. Discussed incidental findings of thyroid nodules with patient and importance of follow-up for ultrasound and further evaluation. Patient reported understanding. Lab Data 08/12/22 17:26 08/12/22 17:[address] 08/12/22 17:15 IMPRESSION: 1. Findings of acute pharyngitis and tonsillitis. No abscess or fluid collection is identified. 2. Enlarged upper cervical chain lymph nodes are likely reactive. 3. Multiple thyroid nodules largest on the left measures 1.8 cm. Recommend ultrasound follow-up. COMMENTS: Consistent with the [employer]'s Incidental Findings Committee white paper (J Am Jamila Radiol 2015): In patients aged 35 years and older with an incidental thyroid nodule equal to or greater than 1.[address], MRI or extrathyroidal US, further evaluation with dedicated thyroid US is recommended for patients with normal life expectancy and without comorbidities. For smaller nodules without suspicious features, no further evaluation or follow up is recommended. Laboratory Results WBC 14.3 10^3/uL (4.0-10.0) H 08/12/22: RBC 4.79 10^6/uL (4.1-5.3) 08/12/22 17: Hgb 14.2 g/dL (11.5-15.3) 08/12/22: Hct 43.5 % (37.0-47.0) 08/12/22: MCV 90.8 fl (81-99) 08/12/22 17: MCH 29.6 pg (28.0-34.0) 08/12/22: MCHC 32.6 g/dL (30.0-36.0) 08/12/22: RDW 12.4 % (12.1-15.1) 08/12/22: Plt Count 352 10^3/cmm (130-400) 08/12/22: MPV 9.5 fL (7.4-10.4) 08/12/22: Neut % (Auto) 88.7 % 08/12/22 17: Lymph % (Auto) 8.1 % 08/12/22 17:26 [place] % (Auto) 1.4 % 08/12/22 17: Eos % (Auto) 0.1 % 08/12/22 17: Baso % (Auto) 0.4 % 08/12/22 17: Neut # (Auto) 12.66 10^3/uL (1.8-7.7) H 08/12/22 17: Lymph # (Auto) 1.2 10^3/uL (0.8-4.8) 08/12/22 17: [place] # (Auto) 0.2 10^3/uL (0.2-0.9) 08/12/22: Eos # (Auto) 0.0 10^3/uL (0.0-0.8) 08/12/22: Baso # (Auto) 0.1 10^3/uL (0.0-0.1) 08/12/22 17: Nucleated RBC % (auto) 0 % 08/12/22 17: Nucleated RBCs # 0.0 /100WBC 08/12/22 17:26 ESR 61 mm/hr (0-15) H 08/12/22 17:26 Sodium 129 mmol/L (136-145) L 08/12/22 17: Potassium 3.8 mmol/L (3.5-5.1) 08/12/22 17: Chloride 100 mmol/L (98-107) 08/12/22 17: Carbon Dioxide 21 mmol/L (22-29) L 08/12/22 17:26 Anion Gap 11.8 (5-19) 08/12/22 17:26 BUN 10 mg/dL (6-20) 08/12/22 17:26 Creatinine 0.4 mg/dL (0.5-0.9) L 08/12/22 17:26 GFR Calculation 178.6 mL/min (90-130) H 08/12/22 17:26 Glucose 106 mg/dL (65-115) 08/12/22 17:26 Calculated Osmolality 267 mOsm/kg (285-295) L 08/12/22 17:26 Calcium 9.3 mg/dL (8.5-10.5) 08/12/22 17:26 Total Bilirubin 0.3 mg/dL (0.15-1.2) 08/12/22 17:26 AST 14 U/L (0-32) 08/12/22 17:26 ALT 34 U/L (0-33) H 08/12/22 17:26 Alkaline Phosphatase 63 U/L (35-105) 08/12/22 17:26 C-Reactive Protein 26.0 mg/L (0.0-4.9) H 08/12/22 17:26 Total Protein 7.6 g/dL (6.6-8.7) 08/12/22 17:26 Albumin 3.9 g/dL (3.5-5.2) 08/12/22 17:26 Globulin 3.7 g/dL (1.3-4.6) 08/12/22 17:26 Group A Strep Rapid Positive (Negative) H 08/12/22 17:50 Discharge Plan Discharge Patient Disposition: Home Clinical Impression: Thyroid nodule Acute streptococcal tonsillitis Qualifiers: Streptococcal tonsillitis recurrence: not specified as recurrent or not Qualified Code(s): J03.00 - Acute streptococcal tonsillitis, unspecified Condition: Stable Prescriptions: New hydrocodone-acetaminophen 5-325 mg tablet 1 tab PO Q8H PRN (Reason: pain (scale score 7-10)) Qty: 5 0RF No Action clonidine HCl 0.1 mg tablet 0.1 mg PO TID PRN (Reason: Hypertension) lisinopril 20 mg tablet 20 mg PO BID fenofibrate 160 mg tablet 160 mg PO DAILY 90 Days Qty: 90 3RF icosapent ethyl [Vascepa] 1 gram capsule 2 g PO BID Qty: 60 3RF atorvastatin 40 mg tablet 40 mg PO DAILY Qty: 90 3RF prednisone 20 mg tablet 20 mg PO BID 3 Days Qty: 6 0RF penicillin V potassium 500 mg tablet 500 mg PO BID 10 Days Qty: 20 0RF Ozempic 1 mg/dose (4 mg/3 mL) pen injector 1 mg SUBCUT ONCE 7 Days Qty: 3 0RF Humulin R U-500 (Conc) Kwikpen 500 unit/mL (3 mL) insulin pen 225 unit SUBCUT TID Qty: 121.5 3RF Rx Instructions: Administer 100-120 units three times a day. Ozempic 2 mg/dose (8 mg/3 mL) pen injector 2 mg SUBCUT Q7D 28 Days Qty: 3 3RF metformin 500 mg Tablet 1,000 mg PO BID@0630,2200 1 tab PO DAILY@0630 metoprolol succinate 25 mg tablet extended release 24 hr 100 mg PO BID atorvastatin 20 mg PO DAILY Ventolin HFA 90 mcg/actuation HFA aerosol inhaler 2 inh inhalation Q6H PRN (Reason: shortness of breath or wheezing) Qty: 6.7 0RF Discharge Orders: Discharge ED (Routine); Ordered 08/12/22 Ordered By: Edgar Huang Referrals: Tammy Cruz DO [Primary Care Provider] - Discharge Diet: Usual diet Discharge Activity: Increase activity as tolerated Patient Instructions: Thyroid Nodules (ED), Opioid Safety Activity Restrictions/Additional Instructions: Continue penicillin and prednisone as directed. Drink plenty of water and fluids. Follow-up with primary care for continued evaluation of thyroid nodule. Return to ER for new concerns or worsening symptoms. 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
[2022-08-12] MEDS: clindamycin 600 MG/50 ML PREMIX 100 MG IV (17:42)
[2022-08-12] MEDS: ketorolac 30 mg/mL INJ 15 MG IVP (17:43)
[2022-08-12] MEDS: dexamethasone 10 mg/mL INJ IVP (17:44)
[2022-08-12] MEDS: sodium chloride 0.9% 1,000 ML 999 ML IV (17:46)
[2022-08-12 17:49] LABS: Basophils # 0.1 10^3/uL (0.0-0.1); Basophils % 0.4 %; Eosinophils % 0.1 %; Hematocrit 43.5 % (37.0-47.0); Hemoglobin 14.2 g/dL (11.5-15.3); Lymphocytes # 1.2 10^3/uL (0.8-4.8); Lymphocytes % 8.1 %; Mean Corpuscular HGB Conc 32.6 g/dL (30.0-36.0); Mean Corpuscular Hemoglobin 29.6 pg (28.0-34.0); Mean Corpuscular Volume 90.8 fl (81-99); Mean Platelet Volume 9.5 fL (7.4-10.4); Monocytes # 0.2 10^3/uL (0.2-0.9); Monocytes % 1.4 %; Neutrophils # 12.66 10^3/uL (1.8-7.7); Neutrophils % 88.7 %; Nucleated Red Blood Cells % 0 %; Platelet Count 352 10^3/cmm (130-400); Red Blood Count 4.79 10^6/uL (4.1-5.3); Red Cell Distribution Width 12.4 % (12.1-15.1); White Blood Count 14.3 10^3/uL (4.0-10.0)
[2022-08-12 17:56] LABS: Erythrocyte Sedimentation Rate 61 mm/hr (0-15)
[2022-08-12 18:12] LABS: Alanine Aminotransferase 34 U/L (0-33); Albumin Level 3.9 g/dL (3.5-5.2); Alkaline Phosphatase 63 U/L (35-105); Anion Gap 11.8 (5-19); Aspartate Amino Transferase 14 U/L (0-32); Blood Urea Nitrogen 10 mg/dL (6-20); Calcium 9.3 mg/dL (8.5-10.5); Carbon Dioxide 21 mmol/L (22-29); Chloride 100 mmol/L (98-107); Globulin 3.7 g/dL (1.3-4.6); Glomerular Filtration Rate 178.6 mL/min (90-130); Glucose 106 mg/dL (65-115); Osmolality Calculated 267 mOsm/kg (285-295); Potassium 3.8 mmol/L (3.5-5.1); Sodium 129 mmol/L (136-145); Total Bilirubin 0.3 mg/dL (0.15-1.2); Total Protein 7.6 g/dL (6.6-8.7)
[2022-08-12 18:16] LABS: Rapid Strep A Test Positive (Negative)
[2022-08-12] MEDS: HYDROcodone-APAP 7.5-325 mg/15 mL UDC PO (19:35)
== END 2022-08-12 19:46 | disposition home or self-care (01) ==
PROVIDERS: Emergency Provider Nurse Practitioner Family; PCP Family Medicine
DX: J03.00 Acute streptococcal tonsillitis, unspecified (principal); Z79.4 Long term (current) use of insulin; Z79.84 Long term (current) use of oral hypoglycemic drugs; E04.2 Nontoxic multinodular goiter; E11.9 Type 2 diabetes mellitus without complications
CPT/HCPCS: 36415; 70491; 80053; 85025; 85651; 86140; 87040; 87071; 87880; 96365; 96366; 96375; 99285; J1100; J1885; J3490; J7030; Q9967

== ENCOUNTER 2022-09-17 06:59 | Outpatient (CLI) | payer OTHER, MEDICAID, SELFPAY ==
[2022-09-17 07:37] LABS: Alanine Aminotransferase 33 U/L (0-33); Albumin Level 3.5 g/dL (3.5-5.2); Alkaline Phosphatase 53 U/L (35-105); Aspartate Amino Transferase 22 U/L (0-32); Blood Urea Nitrogen 10 mg/dL (6-20); Calcium 8.7 mg/dL (8.5-10.5); Carbon Dioxide 21 mmol/L (22-29); Chloride 104 mmol/L (98-107); Chol HDL Ratio 8.46 mg/dL (0.0-4.40); Cholesterol 237 mg/dL (0-200); Globulin 3.5 g/dL (1.3-4.6); Glomerular Filtration Rate 138.1 mL/min (90-130); Glucose 199 mg/dL (65-115); HDL Cholesterol 28 mg/dL (60-100); LDL Cholesterol Calculated 151 mg/dL (50-129); LDL HDL Ratio 5.39 RATIO (0.00-3.22); Osmolality Calculated 287 mOsm/kg (285-295); Sodium 136 mmol/L (136-145); Total Bilirubin 0.3 mg/dL (0.15-1.2); Triglycerides 290 mg/dL (0-150)
[2022-09-17 07:41] LABS: Estmated Average Glucose 146; Hemoglobin A1C 6.7 % (4.0-6.0)
[2022-09-17 07:42] LABS: Creatinine Urine, Random 260 mg/dL (28-217)
[2022-09-17 07:55] LABS: Microalbum Creatinine Ratio Ur 896 mg/dL (0-20); Microalbumin Random Urine 233 ug/dL (0-20)
== END 2022-09-17 07:00 | disposition home or self-care (01) ==
LOC: LAB 07:02
PROVIDERS: PCP Family Medicine; Visit Provider Internal Medicine
DX: E11.9 Type 2 diabetes mellitus without complications (principal); E78.2 Mixed hyperlipidemia
CPT/HCPCS: 80053; 80061; 82044; 83036

== ENCOUNTER 2022-10-03 06:15 | Outpatient (CLI) | payer OTHER, MEDICAID, SELFPAY ==
--- NOTE | 2022-10-03 | US_ITS ---
WS: [id number] THYROID ULTRASOUND HISTORY: NODULES COMPARISON: None available. Right lobe: 1.6 cm x 2.0 cm x 4.3 cm (w x ap x l). Volume: 6.9 cm3. Mildly echogenic thyroid gland. There is a predominantly hypoechoic nodule in the superior pole measu ring 1.0 x 0.7 x 1.1 cm. No echogenic foci. Mixed hypoechoic and hyperechoic nodule. Well-rounded. Th e remaining gland is mildly heterogeneous. Left lobe: 1.9 cm x 1.9 cm x 5.6 cm (w x ap x l). Volume: 10.4 cm3. Mildly enlarged gland with multiple nodules. Largest nodule is predominantly cystic in the mid gland measuring 2.4 x 1.6 x 2.0 cm. There is an additional solid mass towards the isthmus measuring 1.4 x 0 .9 x 2.0 cm. This is nearly isoechoic to the normal gland. Additional more solid nodule but nearly is oechoic to the gland in the mid thyroid measures 1.5 x 1.4 x 1.9 cm. Minimal increased vascularity. Mildly prominent LEFT submandibular chain lymph node. Normal fatty hilum. Isthmus: 0.7 cm. Enlarged. US/US thyroid [id number] IMPRESSION: 1. Enlarged LEFT thyroid with multiple nodules. Some these nodules are solid a nd some thin contain cystic component. No echogenic foci. Majority of these nod ules are nearly isoechoic to the gland which is typically a benign finding. Due to their size consider fine-needle aspiration by ultrasound of the 2 largest a nd solid nodules. 2. Hypoechoic nodule superior pole RIGHT thyroid lobe measures less than 1.5 c m.
== END 2022-10-03 06:16 | disposition home or self-care (01) ==
LOC: RAD 06:16
PROVIDERS: PCP Family Medicine; Visit Provider Nurse Practitioner Family
DX: R91.8 Other nonspecific abnormal finding of lung field (principal)
CPT/HCPCS: 76536

== ENCOUNTER 2022-11-29 07:10 | Outpatient (CLI) | payer OTHER, MEDICAID, SELFPAY ==
--- NOTE | 2022-11-29 | US_ITS ---
WS: [id number] ULTRASOUND-GUIDED LEFT THYROID NODULE FNA x 2 HISTORY: Thyroid nodules. Procedure, risks, and complications were explained to the patient. Consent has been obtained. Comparison: 10/03/2022. The 2 most suspicious nodules are targeted in the LEFT thyroid. One these nodules is towards the isth mus and the other is posterior. The predominantly cystic nodule will not be targeted for biopsy. The skin is cleansed with ChloraPrep and anesthetized with 1% buffered lidocaine. FNA performed with 25 gauge needles. nuclear medicine chief technologist is present to fix slides. US/US guide FNA 2nd lesion [id number] IMPRESSION: Uncomplicated FNA of 2 LEFT thyroid nodules. Final pathology results pending. LEFT isthmus nodule and the more solid hyperechoic nodule in the posterior glan d are targeted.
--- NOTE | 2022-11-29 08:15 | US_ITS ---
WS: [id number] ULTRASOUND-GUIDED LEFT THYROID NODULE FNA x 2 HISTORY: Thyroid nodules. Procedure, risks, and complications were explained to the patient. Consent has been obtained. Comparison: 10/03/2022. The 2 most suspicious nodules are targeted in the LEFT thyroid. One these nodules is towards the isth mus and the other is posterior. The predominantly cystic nodule will not be targeted for biopsy. The skin is cleansed with ChloraPrep and anesthetized with 1% buffered lidocaine. FNA performed with 25 gauge needles. radiographic technologist is present to fix slides. US/US biopsy/FNA thyroid [id number] IMPRESSION: Uncomplicated FNA of 2 LEFT thyroid nodules. Final pathology results pending. LEFT isthmus nodule and the more solid hyperechoic nodule in the posterior glan d are targeted.
== END 2022-11-29 07:11 | disposition home or self-care (01) ==
LOC: RAD 07:12
PROVIDERS: PCP Family Medicine; Visit Provider Otolaryngology
DX: E04.1 Nontoxic single thyroid nodule (principal)
CPT/HCPCS: 10005; 10006; 88173

== ENCOUNTER 2022-12-14 07:18 | Outpatient (CLI) | payer OTHER, MEDICAID, SELFPAY ==
[2022-12-14 07:50] LABS: Estmated Average Glucose 163; Hemoglobin A1C 7.3 % (4.0-6.0)
[2022-12-14 08:02] LABS: Creatinine Urine, Random 134 mg/dL (28-217)
[2022-12-14 08:09] LABS: Alanine Aminotransferase 30 U/L (0-33); Albumin Level 3.4 g/dL (3.5-5.2); Alkaline Phosphatase 49 U/L (35-105); Aspartate Amino Transferase 21 U/L (0-32); Blood Urea Nitrogen 16 mg/dL (6-20); Calcium 8.6 mg/dL (8.5-10.5); Carbon Dioxide 22 mmol/L (22-29); Chloride 104 mmol/L (98-107); Cholesterol 245 mg/dL (0-200); Globulin 3.5 g/dL (1.3-4.6); Glomerular Filtration Rate 138.1 mL/min (90-130); Glucose 167 mg/dL (65-115); HDL Cholesterol 31 mg/dL (60-100); LDL Cholesterol Calculated 137 mg/dL (50-129); LDL HDL Ratio 4.42 RATIO (0.00-3.22); Osmolality Calculated 287 mOsm/kg (285-295); Sodium 136 mmol/L (136-145); Total Bilirubin 0.3 mg/dL (0.15-1.2); Total Protein 6.9 g/dL (6.6-8.7); Triglycerides 386 mg/dL (0-150)
[2022-12-14 08:16] LABS: Microalbum Creatinine Ratio Ur 813 mg/dL (0-20); Microalbumin Random Urine 109 ug/dL (0-20)
== END 2022-12-14 07:19 | disposition home or self-care (01) ==
PROVIDERS: PCP Family Medicine; Visit Provider Internal Medicine
DX: E11.9 Type 2 diabetes mellitus without complications (principal)
CPT/HCPCS: 36415; 80053; 80061; 82044; 83036

== ENCOUNTER → 2023-06-08 12:04 | Outpatient (BNVA) | payer MEDICAID, SELFPAY | PROVIDERS: PCP Family Medicine; Visit Provider Emergency Medicine | DX: R39.9 Unspecified symptoms and signs involving the genitourinary system (principal) | CPT/HCPCS: 81000; 87086 ==

== ENCOUNTER 2023-07-25 07:01 | Outpatient (CLI) | payer OTHER, SELFPAY ==
--- NOTE | 2023-07-25 07:09 | MR_ITS ---
WS: [id number] MRI LEFT SHOULDER NONCONTRAST TECHNIQUE: Sagittal T2, coronal T1, T2 and proton density imaging. Axial gradient PDE imaging. CLINICAL INFORMATION: L SHOULDER PAIN COMPARISON: None. FINDINGS: Moderate degenerative arthritis AC joint with mild edema. Slight downsloping acromion. Tendinopathy s upraspinatus. Normal infraspinatus. Normal teres minor. Normal subscapularis. Small ganglion cyst doni ng the dorsal margin of the coracoid measuring 7 mm. Normal subscapularis. Normal biceps tendon in th e bicipital groove. Normal glenoid. Glenoid labrum appears grossly normal. No significant joint effus ion. No acute fractures. Normal biceps labral anchor.. IMPRESSION: 1. Moderate degenerative arthritis AC joint with mild fluid and edema. 2. No acute appearing rotator cuff tears. 3. Mild tendinopathy distal supraspinatus. 4. Biceps tendon intact within the bicipital groove. Normal biceps labral anchor. 5. Small 7 mm ganglion cyst along the dorsal margin of the coracoid. 6. No other acute findings.
== END 2023-07-25 07:02 | disposition home or self-care (01) ==
LOC: RAD 07:02
PROVIDERS: PCP Family Medicine; Visit Provider Nurse Practitioner Family
DX: M25.512 Pain in left shoulder (principal); M19.012 Primary osteoarthritis, left shoulder; M67.412 Ganglion, left shoulder
CPT/HCPCS: 73221

== ENCOUNTER → 2023-10-16 08:19 | Outpatient (BNVA) | payer OTHER, SELFPAY | PROVIDERS: PCP Nurse Practitioner Family; Referring Provider Nurse Practitioner Family; Visit Provider Specialist | DX: M75.82 Other shoulder lesions, left shoulder; M19.012 Primary osteoarthritis, left shoulder | CPT/HCPCS: 73030 ==

== ENCOUNTER 2023-12-17 08:01 | Outpatient (CLI) | payer OTHER, SELFPAY ==
[2023-12-17 09:07] LABS: Alanine Aminotransferase 21 U/L (0-33); Albumin Level 3.6 g/dL (3.5-5.2); Alkaline Phosphatase 64 U/L (35-105); Anion Gap 14.3 (5-19); Aspartate Amino Transferase 15 U/L (0-32); Blood Urea Nitrogen 13 mg/dL (6-20); Calcium 8.8 mg/dL (8.5-10.5); Carbon Dioxide 23 mmol/L (22-29); Chloride 104 mmol/L (98-107); Chol HDL Ratio 6.83 mg/dL (0.0-4.40); Cholesterol 205 mg/dL (0-200); Globulin 3.5 g/dL (1.3-4.6); Glomerular Filtration Rate 137.4 mL/min (90-130); Glucose 130 mg/dL (65-115); HDL Cholesterol 30 mg/dL (60-100); LDL Cholesterol Calculated 119 mg/dL (50-129); LDL HDL Ratio 3.97 RATIO (0.00-3.22); Osmolality Calculated 286 mOsm/kg (285-295); Potassium 4.3 mmol/L (3.5-5.1); Sodium 137 mmol/L (136-145); Total Bilirubin 0.2 mg/dL (0.15-1.2); Total Protein 7.1 g/dL (6.6-8.7); Triglycerides 281 mg/dL (0-150)
[2023-12-17 09:18] LABS: Creatinine Urine, Random 125 mg/dL (28-217)
[2023-12-17 09:32] LABS: Microalbum Creatinine Ratio Ur 536 mg/dL (0-20); Microalbumin Random Urine 67 ug/dL (0-20)
[2023-12-17 09:37] LABS: Estmated Average Glucose 157; Hemoglobin A1C 7.1 % (4.0-6.0)
== END 2023-12-17 08:02 | disposition home or self-care (01) ==
LOC: LAB 08:04
PROVIDERS: PCP Nurse Practitioner Family; Visit Provider Internal Medicine
DX: E11.9 Type 2 diabetes mellitus without complications (principal); E78.2 Mixed hyperlipidemia
CPT/HCPCS: 36415; 80053; 80061; 82044; 83036

== ENCOUNTER 2023-12-24 13:45 | Outpatient (CLI) | payer OTHER, SELFPAY ==
--- NOTE | 2023-12-24 13:52 | MR_ITS ---
WS: [id number] MRI CERVICAL SPINE NONCONTRAST TECHNIQUE: Sagittal T1, T2 and STIR imaging. Axial T2, gradient, and fiesta imaging. CLINICAL INFORMATION: NECK PAIN COMPARISON: None. FINDINGS: Some images degraded by respiratory motion Straightening of the normal cervical lordosis. Cord signal is normal. No high-grade central canal cl rowing. C2-C3: Normal. C3-C4: Mild facet arthropathy. Spinal canal and foramen are patent. C4-C5: Mild facet arthropathy. Spinal canal and foramen are patent. C5-C6: Mild disc osteophyte ridging eccentric to the LEFT. Mild facet arthropathy. Spinal canal is pa tent. Mild LEFT and no significant RIGHT foraminal narrowing. C6-C7: Mild disc bulging with slight effacement of the ventral thecal sac. Spinal canal and foramen a re patent. Mild facet arthropathy. C7-T1: No significant spinal canal or foraminal narrowing. Visualized brain stem structures: Normal. Prevertebral soft tissues: Normal. MR/MR cervical spin wo con* [id number] IMPRESSION: 1. Straightening of the normal cervical lordosis. Cord signal is normal. 2. Mild LEFT C5-C6 bony foraminal narrowing. 3. Mild disc bulging C6-7 with slight effacement of the ventral thecal sac. Sp inal canal remains patent. 4. Mild facet arthropathy described above. 5. No other acute findings.
== END 2023-12-24 13:47 | disposition home or self-care (01) ==
PROVIDERS: PCP Nurse Practitioner Family; Visit Provider Nurse Practitioner Family
DX: M50.323 Other cervical disc degeneration at C6-C7 level (principal)
CPT/HCPCS: 72141

== ENCOUNTER → 2024-01-27 14:25 | Outpatient (BNVA) | payer OTHER, SELFPAY | PROVIDERS: PCP Nurse Practitioner Family; Visit Provider Obstetrics & Gynecology | DX: Z34.90 Encounter for supervision of normal pregnancy, unspecified, unspecified trimester (principal); Z3A.00 Weeks of gestation of pregnancy not specified | CPT/HCPCS: 80053; 83001; 84443; 85025 ==

== ENCOUNTER 2024-01-31 14:48 | Outpatient (CLI) | payer OTHER, SELFPAY ==
--- NOTE | 2024-01-31 15:00 | MM_ITS ---
WS: [id number] BILATERAL 3D TOMOSYNTHESIS DIGITAL SCREENING MAMMOGRAPHY WITH CAD CLINICAL INFORMATION: Z12.39 - Encounter for other screening for malignant neop... HISTORY: Screening mammogram. No current complaints. COMPARISON: None. TECHNIQUE: Bilateral CC and MLO views. FINDINGS: The breasts are composed of heterogeneous fibroglandular density tissue, which can limit the detectio n of small underlying mass lesions. No suspicious mass, asymmetry, calcifications, or architectural d istortion. No evidence of malignancy. MM/MM [facility] tomosynthesis [id number] IMPRESSION: DENSITY:The breasts are heterogeneously dense, which may obscure small masses. BI-RADS: 1 - Negative FOLLOW UP: 1 Year Follow-up Recommend return to annual screening mammography.
== END 2024-01-31 14:49 | disposition home or self-care (01) ==
LOC: RAD 14:48
PROVIDERS: PCP Nurse Practitioner Family; Visit Provider Nurse Practitioner Women's Health
DX: Z12.31 Encounter for screening mammogram for malignant neoplasm of breast (principal); R92.333 Mammographic heterogeneous density, bilateral breasts
CPT/HCPCS: 77063; 77067

== ENCOUNTER → 2024-02-03 18:48 | Outpatient (BNVA) | payer OTHER, SELFPAY | PROVIDERS: PCP Nurse Practitioner Family; Visit Provider Registered Nurse Neonatal Intensive Care | DX: R10.9 Unspecified abdominal pain (principal) | CPT/HCPCS: 81000 ==

== ENCOUNTER → 2024-02-25 10:29 | Outpatient (BNVA) | payer OTHER, SELFPAY | PROVIDERS: PCP Nurse Practitioner Family; Visit Provider Obstetrics & Gynecology | DX: N93.9 Abnormal uterine and vaginal bleeding, unspecified (principal) | CPT/HCPCS: 76830 ==

== ENCOUNTER → 2024-03-02 12:39 | Outpatient (BNVA) | payer OTHER, SELFPAY | PROVIDERS: PCP Nurse Practitioner Family; Visit Provider Obstetrics & Gynecology | DX: Z30.9 Encounter for contraceptive management, unspecified (principal); N93.9 Abnormal uterine and vaginal bleeding, unspecified | CPT/HCPCS: 87624; 88305 ==

== ENCOUNTER 2024-03-19 13:24 | Emergency (ER) | payer OTHER, SELFPAY ==
[2024-03-19 13:30] VITALS: BP 154/95; PULSE 93; RESP 18; TEMP 36.7; O2SAT 96; BMI 47.1
[2024-03-19 13:33] LABS: Glucose Point of Care 367 mg/dL (70-110)
[2024-03-19 14:40] LABS: Basophils # 0.1 10^3/uL (0.0-0.1); Basophils % 0.8 %; Eosinophils # 0.5 10^3/uL (0.0-0.8); Eosinophils % 6.9 %; Hematocrit 42.5 % (36-47); Lymphocytes # 2.4 10^3/uL (0.8-4.8); Mean Corpuscular HGB Conc 33.2 g/dL (30-55); Mean Corpuscular Hemoglobin 28.9 pg (27-33); Mean Corpuscular Volume 87.1 fl (85-98); Mean Platelet Volume 9.9 fL (7.4-10.4); Monocytes # 0.5 10^3/uL (0.2-0.9); Monocytes % 6.9 %; Neutrophils # 4.11 10^3/uL (1.8-7.7); Neutrophils % 54.1 %; Nucleated Red Blood Cells % 0 %; Platelet Count 266 10^3/cmm (157-399); Red Blood Count 4.88 10^6/uL (3.85-5.65); Red Cell Distribution Width 12.6 % (12.1-15.1); White Blood Count 7.58 10^3/uL (3.29-11.43)
[2024-03-19 14:54] LABS: Alanine Aminotransferase 21 U/L (0-33); Albumin Level 3.6 g/dL (3.5-5.2); Alkaline Phosphatase 75 U/L (35-105); Anion Gap 12.3 (5-19); Aspartate Amino Transferase 11 U/L (0-32); Blood Urea Nitrogen 11 mg/dL (6-20); Carbon Dioxide 25 mmol/L (22-29); Chloride 101 mmol/L (98-107); Creatinine Clr Calc Pharmacy 209.0991; Globulin 2.9 g/dL (1.3-4.6); Glomerular Filtration Rate 136.6 mL/min (90-130); Glucose 435 mg/dL (65-115); Osmolality Calculated 296 mOsm/kg (285-295); Potassium 4.3 mmol/L (3.5-5.1); Sodium 134 mmol/L (136-145); Total Bilirubin 0.2 mg/dL (0.15-1.2); Total Protein 6.5 g/dL (6.6-8.7)
--- NOTE | 2024-03-19 16:46 | ED_ITS ---
HPI - General Adult 2 General: Chief complaint: General Medical Stated complaint: blood sugar high, leg cramps, headache Time Seen by Provider: 03/19/24 16:45 History of Present Illness: Presents to the ER with complaints of high blood sugars over the last month. Patient states that she has been having nausea vomiting abdominal pain excessive thirst urination and headaches. There is been no recent change in her insulin or medications. Patient's last A1c was approximately 3 months ago and was 7.1. Related Data Home Medications Medication Instructions Recorded Confirmed metformin 500 mg tablet 1,000 mg PO BID@0630,2200 08/18/19 03/02/24 clonidine HCl 0.1 mg tablet 0.1 mg PO TID PRN Hypertension 02/27/21 03/02/24 lisinopril 20 mg tablet 20 mg PO BID 03/21/21 03/02/24 metoprolol succinate 25 mg 100 mg PO BID 03/21/21 03/02/24 tablet,extended release 24 hr Previous Rx's Medication Instructions Recorded fenofibrate 160 mg tablet 160 mg PO DAILY 90 days #90 tabs 11/07/21 icosapent ethyl 1 gram capsule 2 g (2 x 1 gram) PO BID #60 caps 02/05/22 (Vascepa) semaglutide 2 mg/dose (8 mg/3 mL) 2 mg (0.75 mL) SUBCUT Q7D 4 weeks 01/22/23 subcutaneous pen injector #3 mL blood-glucose meter,continuous #1 ea 02/12/23 (Dexcom G7 Leather Sorter) blood-glucose sensor (Dexcom G7 #1 ea 02/12/23 Sensor device) atorvastatin 80 mg tablet 80 mg PO DAILY #90 tabs 09/11/23 sertraline 100 mg tablet (Zoloft) 150 mg (1.5 x 100 mg) PO DAILY #45 11/15/23 tabs insulin aspart U-100 100 unit/mL 50 unit (0.5 mL) SUBCUT DAILY #45 01/16/24 (3 mL) subcutaneous pen (Novolog mL FlexPen U-100 Insulin aspart) sulfamethoxazole 800 1 tab PO BID 5 days #10 tabs 02/03/24 mg-trimethoprim 160 mg tablet (Bactrim DS) Allergies Allergy/AdvReac Type Severity Reaction Status Date / Time basil Allergy Severe mouth Verified 03/19/24 13:33 miko Review of Systems 2 General: Reports: 10 or more systems reviewed and unremarkable except in HPI and below PFSH ED 2 PFSH: Medical History Tobacco use disorder, mild, abuse Cannabis use disorder Generalized anxiety disorder Major depressive disorder, recurrent severe without psychotic features Psychiatric care Supervision of high-risk Hypertriglyceridemia No pertinent past medical history neghx: htn,thyroid,dvt/pe PCOS (polycystic ovarian syndrome) Diabetes type 2 Surgical History History of carpal tunnel surgery of right wrist History of eye surgery History of carpal tunnel surgery of left wrist History of laparotomy (~06/2001) removal of ovarian cyst and left fallopian tube due to damage [facility] History of hip surgery (~1996) Pinned due to growth plate slipped Family History Grandmother Diabetes Paternal Ovarian cancer Paternal-- dx age 60's Grandfather Diabetes Paternal Mother Hypercholesteremia Denies family history of Colon cancer Heart disease Breast cancer Hypertension Uterine cancer Thyroid disease Stroke Social History Smoking and tobacco/nicotine status: never used tobacco/nicotine Alcohol intake: current Alcohol intake frequency: holidays/special occasions only Substance/Drug Use: never Additional social history: - Tobacco use: Never Alcohol use: occasional Drug use: denies Female Reproductive History: Date of last menstrual period: 03/16/24 Physical Exam 2 Const: COMMON NORMALS: no acute distress, average body habitus, patient oriented x3, no limitations, healthy appearing, alert and well nourished HENMT: COMMON NORMALS: normocephalic, atraumatic, hearing grossly normal bilaterally, external ears normal, Normal external nose present and moist oral mucous membranes HEAD & SCALP: normocephalic and atraumatic NOSE: Normal external nose present EXTERNAL EAR: Yes external ears normal Neck/C-Spine: COMMON NORMALS: no JVD Chest: COMMONS NORMALS: normal inspection of the chest and normal palpation of entire chest wall Resp: COMMON NORMALS: normal respiratory effort, No retractions, No use of accessory muscles and clear to auscultation bilaterally AUSCULTATION: clear to auscultation bilaterally Cardio: COMMON NORMALS: no JVD, regular rate, regular rhythm, S1 normal heart sound present, S2 normal heart sound present, No gallops present (Cardio), No clicks present (Cardio), No murmurs present (Cardio) and No rub (Cardio) R ATE: regular rate RHYTHM: regular rhythm HEART SOUNDS: S1 normal heart sound present and S2 normal heart sound present GI: COMMON NORMALS: Normal to inspection, nondistended, normoactive bowel sounds present, Soft to palpation, No hepatosplenomegaly present and no masses PALPATION: Yes Soft to palpation and Yes No hepatosplenomegaly present Neuro: COMMON NORMALS: patient oriented x3 SENSORIUM/ORIENTATION: Yes alert Course 2 Vital Signs: Vital signs: Vital Signs Temperature 98.1 F 03/19/24 13:30 Pulse Rate 75 03/19/24 17:38 Respiratory Rate 16 03/19/24 17:38 Blood Pressure 144/84 03/19/24 17:38 Pulse Oximetry 98 03/19/24 17:38 Oxygen Delivery Me thod Room Air 03/19/24 17:38 MDM - General Adult Medical Decision Making Patient presented with a headache increased thirst, urination, elevated blood sugar, patient was given 10 units of insulin and her blood sugar came down to approximately 246, patient symptoms have not really changed but everything else looks fairly normal. Patient be discharged home to follow-up with her PCP. Medical Records I reviewed the patient's medical records. Lab Data I reviewed the patient's lab results. 03/19/24 14:29 03/19/24 14:29 Laboratory Results WBC 7.58 10^3/uL (3.29-11.43) 03/19/24 14: RBC 4.88 10^6/uL (3.85-5.65) 03/19/24 14: Hgb 14.10 g/dL (11.27-16.99) 03/19/24 14: Hct 42.5 % (36-47) 03/19/24 14: MCV 87.1 fl (85-98) 03/19/24 14: MCH 28.9 pg (27-33) 03/19/24 14: MCHC 33.2 g/dL (30-55) 03/19/24 14: RDW 12.6 % (12.1-15.1) 03/19/24 14: Plt Count 266 10^3/cmm (157-399) 03/19/24 14: MPV 9.9 fL (7.4-10.4) 03/19/24 14: Neut % (Auto) 54.1 % 03/19/24: Lymph % (Auto) 31.0 % 03/19/24: [place] % (Auto) 6.9 % 03/19/24 14: Eos % (Auto) 6.9 % 03/19/24: Baso % (Auto) 0.8 % 03/19/24: Neut # (Auto) 4.11 10^3/uL (1.8-7.7) 03/19/24: Lymph # (Auto) 2.4 10^3/uL (0.8-4.8) 03/19/24: [place] # (Auto) 0.5 10^3/uL (0.2-0.9) 03/19/24: Eos # (Auto) 0.5 10^3/uL (0.0-0.8) 03/19/24: Baso # (Auto) 0.1 10^3/uL (0.0-0.1) 03/19/24: Nucleated RBC % (auto) 0 % 03/19/24: Nucleated RBCs # 0.0 /100WBC 03/19/24 14: Sodium 134 mmol/L (136-145) L 03/19/24 14: Potassium 4.3 mmol/L (3.5-5.1) 03/19/24 14: Chloride 101 mmol/L (98-107) 03/19/24 14: Carbon Dioxide 25 mmol/L (22-29) 03/19/24: Anion Gap 12.3 (5-19) 03/19/24 14: BUN 11 mg/dL (6-20) 03/19/24 14: Creatinine 0.5 mg/dL (0.5-0.9) 03/19/24 14: GFR Calculation 136.6 mL/min (90-130) H 03/19/24 14:29 Glucose 435 mg/dL (65-115) H 03/19/24 14:29 POC Glucose 246 mg/dL (70-110) H 03/19/24 18:20 Calculated Osmolality 296 mOsm/kg (285-295) H 03/19/24 14: Calcium 8.0 mg/dL (8.5-10.5) L 03/19/24 14: Total Bilirubin 0.2 mg/dL (0.15-1.2) 03/19/24 14: AST 11 U/L (0-32) 03/19/24 14: ALT 21 U/L (0-33) 03/19/24 14: Alkaline Phosphatase 75 U/L (35-105) 03/19/24 14: Total Protein 6.5 g/dL (6.6-8.7) L 03/19/24 14: Albumin 3.6 g/dL (3.5-5.2) 03/19/24 14: Globulin 2.9 g/dL (1.3-4.6) 03/19/24 14: Urine Color Yellow (Yellow) 03/19/24 17:06 Urine Appearance Clear (CLEAR) 03/19/24 17:06 Urine pH 5.0 (5-7) 03/19/24 17:06 Ur Specific [place] 1.034 (1.005-1.030) H 03/19/24 17:06 Urine Protein 1+ (Negative) A 03/19/24 17:06 Urine Glucose (UA) 3+ (Normal) H 03/19/24 17:06 Urine Ketones Negative (Negative) 03/19/24 17: Urine Blood 3+ (Negative) A 03/19/24 17:06 Urine Nitrate Negative (Negative) 03/19/24 17:06 Urine Bilirubin Negative (Negative) 03/19/24 17:06 Urine Urobilinogen 0.2 mg/dL (Negative) 03/19/24 17:06 Ur Leukocyte Esterase Negative (Negative) 03/19/24 17:06 Urine RBC >100 /hpf (0-2) H 03/19/24 17:06 Urine WBC 6-10 /hpf (0-5) 03/19/24 17:06 Ur Squamous Epith Cells 0-5 /hpf (0-5) 03/19/24 17:06 Amorphous Sediment Not Reportable 03/19/24 17:06 Urine Bacteria None seen /hpf (NONE) 03/19/24 17:06 Hyaline Casts 1.21 /lpf 03/19/24 17:06 All radiology interpretation(s) finalized by discharge Discharge Plan Discharge Patient Disposition: Home Clinical Impression: Hyperglycemia due to diabetes mellitus Condition: Stable Prescriptions: No Action clonidine HCl 0.1 mg tablet 0.1 mg PO TID PRN (Reason: Hypertension) lisinopril 20 mg tablet 20 mg PO BID fenofibrate 160 mg tablet 160 mg PO DAILY 90 Days Qty: 90 3RF atorvastatin 80 mg tablet 80 mg PO DAILY Qty: 90 1RF sulfamethoxazole-trimethoprim [Bactrim DS] 800-160 mg tablet 1 tab PO BID 5 Days Qty: 10 0RF icosapent ethyl [Vascepa] 1 gram capsule 2 g PO BID Qty: 60 3RF semaglutide 2 mg/dose (8 mg/3 mL) pen injector 2 mg SUBCUT Q7D 28 Days Qty: 3 0RF Rx Instructions: Inject ozempic two MG subq every 7 days for 1 month. sertraline [Zoloft] 100 mg tablet 150 mg PO DAILY Qty: 45 2RF insulin aspart U-100 [Novolog FlexPen U-100 Insulin] 100 unit/mL (3 mL) insulin pen 50 unit SUBCUT DAILY Qty: 45 1RF Cetacaine 2 %-2 %-14 % (200 mg/sec) aerosol,spray 1 spray topical ONCE Qty: 1 0RF lidocaine-epinephrine 2 %-1:100,000 solution 1 ml Infiltration ONCE Qty: 1 0RF (DME) Dexcom G7 Leather Sorter Misc See Rx Instructions .Route Qty: 1 0RF Rx Instructions: As directed (DME) Dexcom G7 Sensor Device See Rx Instructions .Route Qty: 1 3RF Rx Instructions: As directed metformin 500 mg Tablet 1,000 mg PO BID@0630,2200 metoprolol succinate 25 mg tablet extended release 24 hr 100 mg PO BID Discharge Orders: Discharge ED (Routine); Ordered 03/19/24 Ordered By: Freddy Chaudhari Referrals: Brianna Granger FNP [Primary Care Provider] - 1 week Patient Instructions: Diabetic Hyperglycemia (ED) Activity Restrictions/Additional Instructions: Thank you for choosing [facility] for your healthcare needs today. Please realize that you were seen in the emergency department and that we are providing you with an emergency medical screening exam and this may not be a complete and all exclusive of all testing and/or medical workup we may need to determine your element or severity of your illness. It is very important that you follow-up as instructed with your primary care provider or specialist for the additional evaluation and to discuss your medical treatment plan. You may return to the emergency department should you have concerns or if your condition changes or worsens in any way. Coding Level of Care Code ED Pattern Mechanic for Avila Molina
[2024-03-19] MEDS: insulin lispro 100 unit/1 mL 10 UNIT SUBCUT (17:11)
[2024-03-19 17:24] LABS: Bilirubin Urine Negative (Negative); Blood Urine 3+ (Negative); Glucose Urine UA 3+ (Normal); Ketones Urine Negative (Negative); Leukocyte Esterase Urine Negative (Negative); Nitrate Urine Negative (Negative); Protein Urine 1+ (Negative); Urine Appearance Clear (CLEAR); Urine Color Yellow (Yellow); Urobilinogen Urine 0.2 mg/dL (Negative)
[2024-03-19 17:29] LABS: Add Urine Microscopic? YES; Bacteria Urine None Seen /hpf; Hyaline Casts Urine 1.21 /lpf; RBC Urine >100 /hpf (0-2); Squamous Epithelial Cell Urine 0-5 /hpf (0-5)
[2024-03-19 17:31] LABS: Specific Gravity, Urine 1.034 (1.005-1.030)
[2024-03-19 17:32] LABS: Add Urine Culture? Yes
[2024-03-19 17:38] VITALS: BP 144/84; PULSE 75; RESP 16; O2SAT 98
[2024-03-19 18:23] LABS: Glucose Point of Care 246 mg/dL (70-110)
[2024-03-19 18:51] VITALS: BP 144/86; PULSE 63; RESP 18; O2SAT 97
== END 2024-03-19 19:00 | disposition home or self-care (01) ==
PROVIDERS: Emergency Medicine; Emergency Provider Emergency Medicine; PCP Nurse Practitioner Family
DX: E11.65 Type 2 diabetes mellitus with hyperglycemia (principal); Z79.84 Long term (current) use of oral hypoglycemic drugs
CPT/HCPCS: 36415; 36416; 80053; 81001; 82962; 85025; 87086; 96372; 99283; 99284; J1815

== ENCOUNTER 2024-05-06 22:30 | Emergency (ER) | payer OTHER, SELFPAY ==
[2024-05-06 22:37] VITALS: BP 180/84; PULSE 78; RESP 16; TEMP 36.8; O2SAT 97; BMI 44.6
--- NOTE | 2024-05-06 23:07 | CTR_ITS ---
PROCEDURE INFORMATION: Exam: CT Temporal Bones Without Contrast. Exam date and time: 05/06/2024 11:14 PM Age: 39 years old Clinical indication: Other: Right greater than left ear pain; Additional info: Severe right ear pain into skull, diabetic TECHNIQUE: Imaging protocol: Computed tomography of the temporal bones without contrast. Radiation optimization: All CT scans at this facility use at least one of these dose optimization techniques: automated exposure control; mA and/or kV adjustment per patient size (includes targeted exams where dose is matched to clinical indication); or iterative reconstruction. COMPARISON: CT orbit BI w con [id number] 04/23/2021 7:11 PM RADIATION DOSE METRICS: Total DLP (mGy-cm): 584.26 FINDINGS: Right inner ear: Normal. Right ossicles and middle ear: Fluid in the right middle ear. Right external auditory canal: Mild mucosal thickening of the right external auditory canal. Right facial nerve canal: Normal. Right jugular foramen: No jugular dehiscence. Right carotid canal: No aberrant carotid canal. Right mastoid air cells: Partial opacification of the right mastoid air cells. Left inner ear: Normal. Left ossicles and middle ear: Normal. The middle ear ossicles are intact. Left external auditory canal: Normal. Left facial nerve canal: Normal. Left jugular foramen: No jugular dehiscence. Left carotid canal: No aberrant carotid canal. Left mastoid air cells: Partial opacification of the left mastoid air cells. Orbital cavities: Post bilateral cataract surgery. Paranasal sinuses: Mucosal disease of the right maxillary sinus. Soft tissues: Unremarkable. CT/CT temporal bone wo con* [id number] IMPRESSION: 1. Fluid in the right middle ear, suggestive of otitis media. 2. Mild mucosal thickening of the right external auditory canal to be correlated with exam to rule out otitis externa. 3. No bony erosions or soft tissue collections.
--- NOTE | 2024-05-06 23:16 | ED_ITS ---
Documented by User: AYLIN Clayton 05/07/24 01:11 HPI - Ear Problem 2 General: Chief complaint: Ear Stated complaint: ear pain spreading into neck both sides Time Seen by Provider: 05/06/24 22:36 Source: patient Mode of arrival: ambulatory Limitations: no limitations History of Present Illness: Patient is a 39-year-old female with history of diabetes who presents the emergency department planing of severe right ear pain worsening over the past 4 days. Was started on amoxicillin on Saturday, was not having any improvement so was started on Bactrim and Ciprodex a couple of days ago. States pain has continued to increase, she is having drainage from the right ear and she feels like it is spreading to her face and to her skull. Denies any fever, states she has a severe headache and severe nausea, no vomiting. No hearing loss, trouble swallowing, loss of voice, or other concerning symptoms. MD Complaint: ear pain and ear discharge Location: right ear Duration: constant Severity: severe Relieving factors: nothing Discharge from ear: yes - purulent Associated symptoms: Reports ear or mastoid pain and headache(s); Denies fever(s) or neck pain Treatment prior to arrival: other (Multiple antibiotics) Related Data Home Medications Medication Instructions Recorded Confirmed metformin 500 mg tablet 1,000 mg PO BID@0630,2200 08/18/19 04/17/24 clonidine HCl 0.1 mg tablet 0.1 mg PO TID PRN Hypertension 02/27/21 04/17/24 lisinopril 20 mg tablet 20 mg PO BID 03/21/21 04/17/24 metoprolol succinate 25 mg 100 mg PO BID 03/21/21 04/17/24 tablet,extended release 24 hr Previous Rx's Medication Instructions Recorded fenofibrate 160 mg tablet 160 mg PO DAILY 90 days #90 tabs 11/07/21 icosapent ethyl 1 gram capsule 2 g (2 x 1 gram) PO BID #60 caps 02/05/22 (Vascepa) semaglutide 2 mg/dose (8 mg/3 mL) 2 mg (0.75 mL) SUBCUT Q7D 4 weeks 01/22/23 subcutaneous pen injector #3 mL blood-glucose meter,continuous #1 ea 02/12/23 (Dexcom G7 Stamp Classifier) blood-glucose sensor (Dexcom G7 #1 ea 02/12/23 Sensor device) atorvastatin 80 mg tablet 80 mg PO DAILY #90 tabs 09/11/23 sertraline 100 mg tablet (Zoloft) 150 mg (1.5 x 100 mg) PO DAILY #45 11/15/23 tabs insulin aspart U-100 100 unit/mL 50 unit (0.5 mL) SUBCUT DAILY #45 01/16/24 (3 mL) subcutaneous pen (Novolog mL FlexPen U-100 Insulin aspart) levofloxacin 750 mg tablet 750 mg PO DAILY 10 days #10 tabs 05/07/24 Allergies Allergy/AdvReac Type Severity Reaction Status Date / Time basil Allergy Severe mouth Verified 05/06/24 22:38 miok Review of Systems 2 General: Reports: 10 or more systems reviewed and unremarkable except in HPI and below Const: Denies: fever(s), chills or fatigue Eyes: Denies: change in vision ENMT: Reports: ear or mastoid pain and ear discharge; Denies: throat pain or nasal discharge Card: Denies: chest pain, palpitations, swelling of feet/ankles or lightheadedness Resp: Denies: dyspnea, productive cough or wheezing GI: Reports: nausea; Denies: abdominal pain, vomiting, diarrhea or constipation : Denies: flank pain, difficulty voiding, dysuria or urinary frequency Musc: Denies: neck pain, back pain or joint pain Skin/Breast: Denies: rash Neuro: Reports: headache(s); Denies: numbness in extremities or weakness in extremities PFSH ED 2 PFSH: Medical History Tobacco use disorder, mild, abuse Cannabis use disorder Generalized anxiety disorder Major depressive disorder, recurrent severe without psychotic features Psychiatric care Supervision of high-risk Hypertriglyceridemia No pertinent past medical history neghx: htn,thyroid,dvt/pe PCOS (polycystic ovarian syndrome) Diabetes type 2 Surgical History History of carpal tunnel surgery of right wrist History of eye surgery History of carpal tunnel surgery of left wrist History of laparotomy (~06/2001) removal of ovarian cyst and left fallopian tube due to damage - [facility] History of hip surgery (~1996) Pinned due to growth plate slipped Family History Grandmother Diabetes Paternal Ovarian cancer Paternal-- dx age 60's Grandfather Diabetes Paternal Mother Hypercholesteremia Denies family history of Colon cancer Heart disease Breast cancer Hypertension Uterine cancer Thyroid disease Stroke Social History Smoking and tobacco/nicotine status: never used tobacco/nicotine Alcohol intake: current Alcohol intake frequency: holidays/special occasions only Substance/Drug Use: never Additional social history: - Tobacco use: Never Alcohol use: occasional Drug use: denies Female Reproductive History: Date of last menstrual period: 04/27/24 Physical Exam 2 Const: COMMON NORMALS: no acute distress and no limitations GENERAL APPEARANCE: cooperative, comfortable and well developed O RIENTATION/CONSCIOUSNESS: Yes awake HENMT: COMMON NORMALS: normocephalic, atraumatic, hearing grossly normal bilaterally, external ears normal and TM's normal bilaterally HEAD & SCALP: n ormocephalic and atraumatic EXTERNAL EAR: Yes external ears normal and Yes mastoids normal EXTERNAL AUDITORY CANAL: Abnormal EAC present EAC laterality: right Details: erythema, edema and otic discharge Details: purulent discharge TYMPANIC MEMBRANE: TM's normal bilaterally OTHER: Reproducible tenderness to palpation of patient's right face and right lateral neck. No discrete redness or swelling to the right mastoid area Eye: COMMON NORMALS: Equal, round and reactive pupils present, EOMs intact bilaterally and conjunctivae normal CONJUNCTIVA: Yes conjunctivae normal P UPIL: Yes Equal, round and reactive pupils present Neck/C-Spine: COMMON NORMALS: full ROM, supple and no JVD Resp: COMMON NORMALS: normal respiratory effort, No retractions, No use of accessory muscles and clear to auscultation bilaterally AUSCULTATION: clear to auscultation bilaterally Cardio: COMMON NORMALS: no JVD, regular rate, regular rhythm, No clicks present (Cardio), No murmurs present (Cardio) and No rub (Cardio) RATE: r egular rate RHYTHM: regular rhythm Extremity: COMMON NORMALS: normal to inspection, full ROM and capillary refill normal Skin: COMMON NORMALS: no rashes or lesions noted GENERAL SKIN EXAM: no rashes or lesions noted Course 2 Vital Signs: Vital signs: Vital Signs Temperature 98.2 F 05/06/24 22:37 Pulse Rate 78 05/06/24 22:37 Respiratory Rate 16 05/06/24 22:37 Blood Pressure 180/84 05/06/24 22:37 Pulse Oximetry 97 05/06/24 22:37 Oxygen Delivery Me thod Room Air 05/06/24 22:37 MDM - Ear Medical Decision Making Patient presented with worsening ear pain despite being on multiple antibiotics recently. He is currently being treated for otitis externa as well as otitis media. History of diabetes, was reporting pain radiating through her head and drainage, wanted to rule out a malignant otitis externa with CT temporal bone. No signs of bony erosions to indicate this, and her lab work was unremarkable. Will switch to Levaquin to cover for Pseudomonas and have her follow-up with ENT, she states she has already been referred. Work note provided. Patient states pain has been steady throughout ED course. Will have her stop amoxicillin and Bactrim, continue Ciprodex along with the Levaquin. Care transferred to myself at shift change, reviewed CT scan, will discharge patient. Lab Data 05/06/24 23:48 Radiology Impressions Temporal Bone CT 05/06/24 23:07 IMPRESSION: 1. Fluid in the right middle ear, suggestive of otitis media. 2. Mild mucosal thickening of the right external auditory canal to be correlated with exam to rule out otitis externa. 3. No bony erosions or soft tissue collections. Laboratory Results WBC 9.90 10^3/uL (3.29-11.43) 05/06/24 23:48 RBC 4.73 10^6/uL (3.85-5.65) 05/06/24 23:48 Hgb 13.80 g/dL (11.27-16.99) 05/06/24 23:48 Hct 42.4 % (36-47) 05/06/24 23:48 MCV 89.6 fl (85-98) 05/06/24 23:48 MCH 29.2 pg (27-33) 05/06/24 23:48 MCHC 32.5 g/dL (30-55) 05/06/24 23:48 RDW 12.8 % (12.1-15.1) 05/06/24 23:48 Plt Count 280 10^3/cmm (157-399) 05/06/24 23:48 MPV 9.2 fL (7.4-10.4) 05/06/24 23:48 Neut % (Auto) 59.3 % 05/06/24 23:48 Lymph % (Auto) 27.7 % 05/06/24 23:48 [place] % (Auto) 7.2 % 05/06/24 23:48 Eos % (Auto) 4.8 % 05/06/24 23:48 Baso % (Auto) 0.7 % 05/06/24 23:48 Neut # (Auto) 5.87 10^3/uL (1.8-7.7) 05/06/24 23:48 Lymph # (Auto) 2.7 10^3/uL (0.8-4.8) 05/06/24 23:48 [place] # (Auto) 0.7 10^3/uL (0.2-0.9) 05/06/24 23:48 Eos # (Auto) 0.5 10^3/uL (0.0-0.8) 05/06/24 23:48 Baso # (Auto) 0.1 10^3/uL (0.0-0.1) 05/06/24 23:48 Nucleated RBC % (auto) 0 % 05/06/24 23:48 Nucleated RBCs # 0.0 /100WBC 05/06/24 23:48 ESR 44 mm/hr (0-15) H 05/06/24 23:48 C-Reactive Protein 14.7 mg/L (0.0-4.9) H 05/06/24 23:48 All radiology interpretation(s) finalized by discharge Discharge Plan Discharge Patient Disposition: Home Clinical Impression: Otitis externa Qualifiers: Otitis externa type: unspecified type Chronicity: acute Laterality: right Q ualified Code(s): H60.501 - Unspecified acute noninfective otitis externa, right ear Condition: Stable Prescriptions: New levofloxacin 750 mg tablet 750 mg PO DAILY 10 Days Qty: 10 0RF Discontinued sulfamethoxazole-trimethoprim [Bactrim DS] 800-160 mg tablet 1 tab PO BID 5 Days Qty: 10 0RF No Action clonidine HCl 0.1 mg tablet 0.1 mg PO TID PRN (Reason: Hypertension) lisinopril 20 mg tablet 20 mg PO BID fenofibrate 160 mg tablet 160 mg PO DAILY 90 Days Qty: 90 3RF atorvastatin 80 mg tablet 80 mg PO DAILY Qty: 90 1RF icosapent ethyl [Vascepa] 1 gram capsule 2 g PO BID Qty: 60 3RF semaglutide 2 mg/dose (8 mg/3 mL) pen injector 2 mg SUBCUT Q7D 28 Days Qty: 3 0RF Rx Instructions: Inject ozempic two MG subq every 7 days for 1 month. sertraline [Zoloft] 100 mg tablet 150 mg PO DAILY Qty: 45 2RF insulin aspart U-100 [Novolog FlexPen U-100 Insulin] 100 unit/mL (3 mL) insulin pen 50 unit SUBCUT DAILY Qty: 45 1RF Cetacaine 2 %-2 %-14 % (200 mg/sec) aerosol,spray 1 spray topical ONCE Qty: 1 0RF lidocaine-epinephrine 2 %-1:100,000 solution 1 ml Infiltration ONCE Qty: 1 0RF (DME) Dexcom G7 Stamp Classifier Misc See Rx Instructions .Route Qty: 1 0RF Rx Instructions: As directed (DME) Dexcom G7 Sensor Device See Rx Instructions .Route Qty: 1 3RF Rx Instructions: As directed metformin 500 mg Tablet 1,000 mg PO BID@0630,2200 metoprolol succinate 25 mg tablet extended release 24 hr 100 mg PO BID Discharge Orders: Discharge ED (Routine); Ordered 05/07/24 Ordered By: Freddy Chaudhari Referrals: Brianna Granger FNP [Primary Care Provider] - Patient Instructions: Otitis Externa - Adult Activity Restrictions/Additional Instructions: Take Levaquin as prescribed. Please stop taking your amoxicillin and Bactrim. Continue taking Ciprodex. Follow-up with ENT. Continue Tylenol and ibuprofen for pain relief. Return with any severe pain behind your ear, redness behind your ear, worsening of pain or lack of improvement, or other concerning symptoms. 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 [employer] Documented by User: Freddy Chaudhari 05/07/24 00:59 HPI - Ear Problem 2 General: Chief complaint: Ear Stated complaint: ear pain spreading into neck both sides Time Seen by Provider: 05/06/24 22:36 Related Data Home Medications Medication Instructions Recorded Confirmed metformin 500 mg tablet 1,000 mg PO BID@0630,2200 08/18/19 04/17/24 clonidine HCl 0.1 mg tablet 0.1 mg PO TID PRN Hypertension 02/27/21 04/17/24 lisinopril 20 mg tablet 20 mg PO BID 03/21/21 04/17/24 metoprolol succinate 25 mg 100 mg PO BID 03/21/21 04/17/24 tablet,extended release 24 hr Previous Rx's Medication Instructions Recorded fenofibrate 160 mg tablet 160 mg PO DAILY 90 days #90 tabs 11/07/21 icosapent ethyl 1 gram capsule 2 g (2 x 1 gram) PO BID #60 caps 02/05/22 (Vascepa) semaglutide 2 mg/dose (8 mg/3 mL) 2 mg (0.75 mL) SUBCUT Q7D 4 weeks 01/22/23 subcutaneous pen injector #3 mL blood-glucose meter,continuous #1 ea 02/12/23 (Dexcom G7 Stamp Classifier) blood-glucose sensor (Dexcom G7 #1 ea 02/12/23 Sensor device) atorvastatin 80 mg tablet 80 mg PO DAILY #90 tabs 09/11/23 sertraline 100 mg tablet (Zoloft) 150 mg (1.5 x 100 mg) PO DAILY #45 11/15/23 tabs insulin aspart U-100 100 unit/mL 50 unit (0.5 mL) SUBCUT DAILY #45 01/16/24 (3 mL) subcutaneous pen (Novolog mL FlexPen U-100 Insulin aspart) levofloxacin 750 mg tablet 750 mg PO DAILY 10 days #10 tabs 05/07/24 Allergies Allergy/AdvReac Type Severity Reaction Status Date / Time basil Allergy Severe mouth Verified 05/06/24 22:38 miko [facility] ED 2 PFSH: Medical History Tobacco use disorder, mild, abuse Cannabis use disorder Generalized anxiety disorder Major depressive disorder, recurrent severe without psychotic features Psychiatric care Supervision of high-risk Hypertriglyceridemia No pertinent past medical history neghx: htn,thyroid,dvt/pe PCOS (polycystic ovarian syndrome) Diabetes type 2 Surgical History History of carpal tunnel surgery of right wrist History of eye surgery History of carpal tunnel surgery of left wrist History of laparotomy (~06/2001) removal of ovarian cyst and left fallopian tube due to damage [facility] History of hip surgery (~1996) Pinned due to growth plate slipped Family History Grandmother Diabetes Paternal Ovarian cancer Paternal-- dx age 60's Grandfather Diabetes Paternal Mother Hypercholesteremia Denies family history of Colon cancer Heart disease Breast cancer Hypertension Uterine cancer Thyroid disease Stroke Social History Smoking and tobacco/nicotine status: never used tobacco/nicotine Alcohol intake: current Alcohol intake frequency: holidays/special occasions only Substance/Drug Use: never Additional social history: - Tobacco use: Never Alcohol use: occasional Drug use: denies Course 2 Vital Signs: Vital signs: Vital Signs Temperature 98.2 F 05/06/24 22:37 Pulse Rate 78 05/06/24 22:37 Respiratory Rate 16 05/06/24 22:37 Blood Pressure 180/84 05/06/24 22:37 Pulse Oximetry 97 05/06/24 22:37 Oxygen Delivery Me thod Room Air 05/06/24 22:37 MDM - Ear Medical Decision Making Care transferred to myself at shift change, reviewed CT scan, will discharge patient. Lab Data 05/06/24 23:48 Radiology Impressions Temporal Bone CT 05/06/24 23:07 IMPRESSION: 1. Fluid in the right middle ear, suggestive of otitis media. 2. Mild mucosal thickening of the right external auditory canal to be correlated with exam to rule out otitis externa. 3. No bony erosions or soft tissue collections. Laboratory Results WBC 9.90 10^3/uL (3.29-11.43) 05/06/24 23:48 RBC 4.73 10^6/uL (3.85-5.65) 05/06/24 23:48 Hgb 13.80 g/dL (11.27-16.99) 05/06/24 23:48 Hct 42.4 % (36-47) 05/06/24 23:48 MCV 89.6 fl (85-98) 05/06/24 23:48 MCH 29.2 pg (27-33) 05/06/24 23:48 MCHC 32.5 g/dL (30-55) 05/06/24 23:48 RDW 12.8 % (12.1-15.1) 05/06/24 23:48 Plt Count 280 10^3/cmm (157-399) 05/06/24 23:48 MPV 9.2 fL (7.4-10.4) 05/06/24 23:48 Neut % (Auto) 59.3 % 05/06/24 23:48 Lymph % (Auto) 27.7 % 05/06/24 23:48 [place] % (Auto) 7.2 % 05/06/24 23:48 Eos % (Auto) 4.8 % 05/06/24 23:48 Baso % (Auto) 0.7 % 05/06/24 23:48 Neut # (Auto) 5.87 10^3/uL (1.8-7.7) 05/06/24 23:48 Lymph # (Auto) 2.7 10^3/uL (0.8-4.8) 05/06/24 23:48 [place] # (Auto) 0.7 10^3/uL (0.2-0.9) 05/06/24 23:48 Eos # (Auto) 0.5 10^3/uL (0.0-0.8) 05/06/24 23:48 Baso # (Auto) 0.1 10^3/uL (0.0-0.1) 05/06/24 23:48 Nucleated RBC % (auto) 0 % 05/06/24 23:48 Nucleated RBCs # 0.0 /100WBC 05/06/24 23:48 ESR 44 mm/hr (0-15) H 05/06/24 23:48 C-Reactive Protein 14.7 mg/L (0.0-4.9) H 05/06/24 23:48 Discharge Plan Discharge Patient Disposition: Home Clinical Impression: Otitis externa Qualifiers: Otitis externa type: unspecified type Chronicity: acute Laterality: right Q ualified Code(s): H60.501 - Unspecified acute noninfective otitis externa, right ear Condition: Stable Prescriptions: New levofloxacin 750 mg tablet 750 mg PO DAILY 10 Days Qty: 10 0RF Discontinued sulfamethoxazole-trimethoprim [Bactrim DS] 800-160 mg tablet 1 tab PO BID 5 Days Qty: 10 0RF No Action clonidine HCl 0.1 mg tablet 0.1 mg PO TID PRN (Reason: Hypertension) lisinopril 20 mg tablet 20 mg PO BID fenofibrate 160 mg tablet 160 mg PO DAILY 90 Days Qty: 90 3RF atorvastatin 80 mg tablet 80 mg PO DAILY Qty: 90 1RF icosapent ethyl [Vascepa] 1 gram capsule 2 g PO BID Qty: 60 3RF semaglutide 2 mg/dose (8 mg/3 mL) pen injector 2 mg SUBCUT Q7D 28 Days Qty: 3 0RF Rx Instructions: Inject ozempic two MG subq every 7 days for 1 month. sertraline [Zoloft] 100 mg tablet 150 mg PO DAILY Qty: 45 2RF insulin aspart U-100 [Novolog FlexPen U-100 Insulin] 100 unit/mL (3 mL) insulin pen 50 unit SUBCUT DAILY Qty: 45 1RF Cetacaine 2 %-2 %-14 % (200 mg/sec) aerosol,spray 1 spray topical ONCE Qty: 1 0RF lidocaine-epinephrine 2 %-1:100,000 solution 1 ml Infiltration ONCE Qty: 1 0RF (DME) Dexcom G7 Stamp Classifier Misc See Rx Instructions .Route Qty: 1 0RF Rx Instructions: As directed (DME) Dexcom G7 Sensor Device See Rx Instructions .Route Qty: 1 3RF Rx Instructions: As directed metformin 500 mg Tablet 1,000 mg PO BID@0630,2200 metoprolol succinate 25 mg tablet extended release 24 hr 100 mg PO BID Discharge Orders: Discharge ED (Routine); Ordered 05/07/24 Ordered By: Freddy Chaudhari Referrals: Brianna Granger FNP [Primary Care Provider] - Patient Instructions: Otitis Externa - Adult Activity Restrictions/Additional Instructions: Take Levaquin as prescribed. Please stop taking your amoxicillin and Bactrim. Continue taking Ciprodex. Follow-up with ENT. Continue Tylenol and ibuprofen for pain relief. Return with any severe pain behind your ear, redness behind your ear, worsening of pain or lack of improvement, or other concerning symptoms. 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
[2024-05-06 23:54] LABS: Basophils # 0.1 10^3/uL (0.0-0.1); Basophils % 0.7 %; Eosinophils # 0.5 10^3/uL (0.0-0.8); Eosinophils % 4.8 %; Hematocrit 42.4 % (36-47); Lymphocytes # 2.7 10^3/uL (0.8-4.8); Lymphocytes % 27.7 %; Mean Corpuscular HGB Conc 32.5 g/dL (30-55); Mean Corpuscular Hemoglobin 29.2 pg (27-33); Mean Corpuscular Volume 89.6 fl (85-98); Mean Platelet Volume 9.2 fL (7.4-10.4); Monocytes # 0.7 10^3/uL (0.2-0.9); Monocytes % 7.2 %; Neutrophils # 5.87 10^3/uL (1.8-7.7); Neutrophils % 59.3 %; Nucleated Red Blood Cells % 0 %; Platelet Count 280 10^3/cmm (157-399); Red Blood Count 4.73 10^6/uL (3.85-5.65); Red Cell Distribution Width 12.8 % (12.1-15.1)
[2024-05-06 23:59] LABS: Erythrocyte Sedimentation Rate 44 mm/hr (0-15)
[2024-05-07 00:15] LABS: C Reactive Protein 14.7 mg/L (0.0-4.9)
[2024-05-07 01:16] VITALS: BP 125/81; PULSE 96; O2SAT 96
== END 2024-05-07 01:17 | disposition home or self-care (01) ==
PROVIDERS: Emergency Provider Physician Assistant; PCP Nurse Practitioner Family
DX: H60.501 Unspecified acute noninfective otitis externa, right ear (principal); Z79.84 Long term (current) use of oral hypoglycemic drugs; E11.9 Type 2 diabetes mellitus without complications
CPT/HCPCS: 36415; 70480; 85025; 85651; 86140; 99284

== ENCOUNTER → 2025-01-25 11:13 | Outpatient (BNVA) | payer OTHER, SELFPAY | PROVIDERS: PCP Family Medicine; Visit Provider Family Medicine | DX: R30.0 Dysuria (principal) | CPT/HCPCS: 81000; 87086 ==

== ENCOUNTER 2025-03-03 07:10 | Outpatient (CLI) | payer OTHER, SELFPAY ==
[2025-03-03 07:42] LABS: Hematocrit 43.8 % (36-47); Hemoglobin 14.80 g/dL (11.27-16.99); Mean Corpuscular HGB Conc 33.8 g/dL (30-55); Mean Corpuscular Hemoglobin 29.7 pg (27-33); Mean Corpuscular Volume 87.8 fl (85-98); Nucleated Red Blood Cells % 0 %; Platelet Count 334 10^3/cmm (157-399); Red Blood Count 4.99 10^6/uL (3.85-5.65); White Blood Count 11.92 10^3/uL (3.29-11.43)
[2025-03-03 08:02] LABS: Estmated Average Glucose 171; Hemoglobin A1C 7.6 % (4.0-6.0)
[2025-03-03 08:03] LABS: Creatinine Urine, Random 219 mg/dL (28-217)
[2025-03-03 08:12] LABS: Alanine Aminotransferase 25 U/L (0-33); Albumin Level 4.0 g/dL (3.5-5.2); Alkaline Phosphatase 69 U/L (35-105); Anion Gap 16.3 (5-19); Aspartate Amino Transferase 21 U/L (0-32); Blood Urea Nitrogen 9 mg/dL (6-20); Calcium 8.7 mg/dL (8.5-10.5); Carbon Dioxide 21 mmol/L (22-29); Chloride 102 mmol/L (98-107); Cholesterol 238 mg/dL (0-200); Free T4 Free Thyroxine 1.32 ng/dL (0.82-1.77); Globulin 3.2 g/dL (1.3-4.6); Glucose 170 mg/dL (65-115); HDL Cholesterol 28 mg/dL (60-100); Osmolality Calculated 283 mOsm/kg (285-295); Potassium 4.3 mmol/L (3.5-5.1); Sodium 135 mmol/L (136-145); Thyroid Stimulating Hormone 0.92 uIU/mL (0.27-4.20); Total Protein 7.2 g/dL (6.6-8.7); Triglycerides 265 mg/dL (0-150)
[2025-03-03 08:27] LABS: Microalbum Creatinine Ratio Ur 1082 mg/dL (0-20)
== END 2025-03-03 07:11 | disposition home or self-care (01) ==
PROVIDERS: PCP Family Medicine; Visit Provider Family Medicine
DX: E11.9 Type 2 diabetes mellitus without complications (principal); Z79.4 Long term (current) use of insulin; E03.9 Hypothyroidism, unspecified; E04.2 Nontoxic multinodular goiter
CPT/HCPCS: 36415; 80053; 80061; 82044; 83036; 84439; 84443; 85025

== ENCOUNTER 2025-04-10 11:18 | Outpatient (CLI) | payer OTHER, SELFPAY ==
[2025-04-10 11:25] LABS: Total Volume, Urine 1150 mL
== END 2025-04-10 11:19 | disposition home or self-care (01) ==
PROVIDERS: PCP Family Medicine; Visit Provider Family Medicine
DX: E11.29 Type 2 diabetes mellitus with other diabetic kidney complication (principal); R80.9 Proteinuria, unspecified
CPT/HCPCS: 84156